=== PATIENT | male | born 1945 | race Caucasian/White ===

== ENCOUNTER 2021-11-27 12:30 | Outpatient (RCR) | payer MEDICARE, SELFPAY ==
--- NOTE | 2021-09-05 16:33 | PTOPEVAL ---
Thank you for referring Jordan Diaz to [facility].? The patient is scheduled to be seen for therapy? 2 x/week for 5 weeks. Please review, sign, date and return this plan of care NINA. I agree with and certify that the following plan of care is medically necessary. Referring Physician Date Attending Provider: Benigno Jay MD Diagnosis CVA Onset 4 yrs Additional Evaluation Detail TRISL 3 wk, [place] [facility]: 3 wk, OP therapy at [place] x 2 months. He receives botox injections for his left shoulder. HEP: walking, shoulder exercises andrea with 7# on right core stability/LE: clamshell, bridging, marching, leg lifts, sit<>Stand, ankle exercises, neck stretching Subjective Information STates he walking speed and Query Text:As Reported By Patient/ endurance increased until Family recently he has noticed a decline. States he is not able to walk as far and is walking slower. He had a fall 8 months ago. Increased limitations with sit <>stand from all surfaces with decreased control. Denies any problems with ramp. He has not used the steps at home in the past 4 yrs. He is able to perform steps in the community if the steps are wide and have a rail. Prior Level of Function Activity Level (Last 3 Months) Activity of Daily Living Ability Needs Some Help Indoor/Home Mobility Independent Stairs Ability Needs Some Help Cooking No Cleaning No Laundry No Shopping No Driving No Home Setting Home Type House Environmental Barriers Ramp Living Situation With Spouse Support Available Local Family Support Mobility Assistive Devices (Used Last 3 Cane Months) Comments Additional Prior Level of Function left wrist brace Comments has an AFO, but does not wear Pain Assessment Left Arm(s) Reported Pain Level 2 Lowest Pain Intensity 1 Greatest Pain Intensity 2 Pain Score Pain Score 2: Self
--- NOTE | 2021-09-11 12:55 | PCPTNOTE ---
Patient called & cancelled scheduled appointment this date due to icy weather.
--- NOTE | 2021-09-11 12:57 | PCPTNOTE ---
Patient called & cancelled scheduled appointment this date due to icy weather.
--- NOTE | 2021-10-02 15:28 | PTOPEVAL ---
Physical Therapy Progress Note Thank you for referring Jordan Diaz to [facility].? See update below for noted progress and recommendations for continued therapy. The patient is scheduled to be seen for therapy? 2x/week for 5 weeks. Please review, sign, date and return this plan of care NINA. I agree with and certify that the following plan of care is medically necessary. Referring Physician Date Attending Provider: Benigno Jay Referring Provider: Diagnosis CVA Onset 4 yrs Additional Evaluation Detail TRISL 3 wk, [place] [facility]: 3 wk , OP therapy at [place] x 2 months. He receives botox injections for his left shoulder. HEP: walking, shoulder exercises andrea with 7# on right core stability/LE: clamshell, bridging, marching, leg lifts, sit<>Stand, ankle exercises, neck stretching Subjective Information Reports he is able to clear Query Text:As Reported By Patient/ his left foot better with his Family walking. Feels the muscles are getting better slowly. He is not preforming prolonged walking and does not feel he is walking faster. He has had the chance to walk outside a few time. He is getting up from his chair or project every 30 min except with playing bridge. c/o right hip pain, but it does not interfer with his activities. Pain Assessment Timing of Pain Assessment Timing of Pain Assessment Re-assessment Pain Scale Pain Scale Used Numeric (1 - 10) Self Report Pain Assessment Left Arm(s) Reported Pain Level 0 Pain Score Pain Score 0: Self Report Lower Extremity Range of Motion Hip Range of Motion Left Hip Flexion Range of Motion - Passive 100 Hip Extension Range of Motion - Passive -20 Hip Abduction Range of Motion - Passive 20 Hip Medial Rotation - Passive 15 Lower Extremity Muscle Strength Testing General Lower Extremity Strength Gross Lower Extremity Strength right knee/ankle 5/5 right hip flex: 5/5, Hip Strength Left Hip Flexion Strength 4- Good - Hip Extension Strength 3 Fair Hip Abduction Strength 2+ Poor + Hip Adduction Strength 2+ Poor + Hip Strength Comments 75% of bridging motion Knee Strength Left
--- NOTE | 2021-11-06 15:19 | PTOPEVAL ---
Physical Therapy Progress Note Thank you for referring Jordan Diaz to [facility].? As a result of skilled services, he demonstrates improved functional mobility, improved balance and improved LE strength. He is progressing towards his therapy goals. The patient is scheduled to be seen for therapy?2 x/week for 3 weeks with no therapy planned for next week due to lack of transportation. Please review, sign, date and return this plan of care NINA. I agree with and certify that the following plan of care is medically necessary. Referring Physician Date Attending Provider: Benigno Jay MD Diagnosis CVA Onset 4 yrs Additional Evaluation Detail TRISL 3 wk, [place] [facility]: 3 wk , OP therapy at [place] x 2 months. He receives Botox injections for his left shoulder. HEP: walking, shoulder exercises andrea with 7# on right core stability/LE: clamshell, bridging, marching, leg lifts, sit<>Stand, ankle exercises, neck stretching Subjective Information He is getting out of his chair Query Text:As Reported By Patient/ every 30 min to walk and Family stand. Reports cont to have difficulty clearing his left foot at all time with his walking. Feels the muscles are getting better slowly. He is walking longer distance, but not as far as last summer. He c/o left thigh muscle soreness. Pain Assessment Self Report Pain Assessment Left Arm(s) Reported Pain Level 0 Lower Extremity Range of Motion Hip Range of Motion Left Hip Extension Range of Motion - Passive -15 Hip Abduction Range of Motion - Passive 20 Hip Medial Rotation - Passive 10 Lower Extremity Muscle Strength Testing Hip Strength Left Hip Flexion Strength 4 Good Hip Extension Strength 3+ Fair + Hip Abduction Strength 2+ Poor + Hip Adduction Strength 2+ Poor + Hip Strength Comments 100% of bridging motion Knee Strength Left Knee Flexion Strength 4+ Good + Knee Extension Strength 4+ Good + Knee Strength Comments hamstring tested seated Ankle Strength Left Ankle Dorsiflexion Strength 4+ Good + Ankle Eversion Strength 4+ Good + Ankle Inversion Strength 5 Normal Balance Assessment CERVANTES Balance Evaluation Total Score (40/56 points) Timed Up and Go Test (TUG) (Seconds) 16 Assistive Devices Cane, Straight 5 Time Sit to Stand
== END 2021-12-01 11:49 | disposition home or self-care (01) ==
LOC: ANHPT 12:30
DX: I69.359 Hemiplegia and hemiparesis following cerebral infarction affecting unspecified side (principal)
CPT/HCPCS: 97110; 97112; 97116; 97140; 97162; 97530

== ENCOUNTER 2021-12-05 12:30 | Outpatient (RCR) | payer MEDICARE, SELFPAY ==
--- NOTE | 2021-12-01 17:38 | PCPTNOTE ---
The treatment documented on this account is a continuation of the treatment documented on visit number 22 from [id number]. Please see documentation on both accounts to view progress. The Plan of Care has been transitioned and updated within the new V#. I have addressed and agree with the discipline specific Problems, Interventions, and Goals for the current certification period. Completed interventions, outcomes, and problems have been marked as Inactive to facilitate the copying of the Care plan routine for recurring accounts.
--- NOTE | 2021-12-02 11:31 | PCPTNOTE ---
Patient called & cancelled scheduled appointment this date due to back pain today.
--- NOTE | 2021-12-05 14:48 | PTOPEVAL ---
Physical Therapy Discharge Summary Thank you for referring Jordan Diaz to [facility].? Pt referred to therapy due to chronic impairments from CVA 4 yrs ago. He had previous bouts of therapy in acute rehab, SNF and OP therapy. He has attended 22 therapy visits from 09/05/21 to 12/05/21 to address his noted limitations. As result of skilled therapy services he demonstrates improved functional mobility, improved WB on left LE, decreased fall risk with improved Monroe score, improved endurance with ambulation. Also noted to have improved left hip flex/ext, knee flex/ext strength. Monroe balance test: 40 last update to TU sec last update and 17 sec currently with = LE WB 2 min walk test: 223 ft with cane last update, improve to 240 ft with cane 5 times sit<>Stand: 21 sec last update and 20sec with 100% WB on left at update As a result of skilled therapy services Jordan has met or partially met 90 % of his therapy goals. He demonstrates indep and compliance with his HEP and walking program. He has reached maximal potential with skilled therapy services at this time. Will DC skilled PT services at this time. Please review, sign, date and return this discharge summary NINA. Referring Physician Date Attending Provider: Benigno Jay MD Diagnosis CVA Onset 4 yrs Additional Evaluation Detail TRISL 3 wk, [place] [facility]: 3 wk, OP therapy at [place] x 2 months. He receives Botox injections for his left shoulder. HEP: walking, shoulder exercises andrea with 7# on right core stability/LE: clamshell, bridging, marching, leg lifts, sit<>Stand, ankle exercises, neck stretching Subjective Information He is walking more at home Query Text:As Reported By Patient/ every 30 min. He is able to Family walk his .6 mile walk with increased rudy. Reports improved ability to clearing his left foot with his walking. He does feel his step length need to be address still. He does feel his leg muscles are getting stronger. Pain Assessment Bilateral Lower Back Reported Pain Level 1 Lower Extremity Muscle Strength Testing Gross Lower Extremity Strength right knee/ankle 5/5 right hip flex: 5/5, Hip Strength Left Hip Flexion Strength 4+ Good + Hip Extension Strength 4- Good - Hip Abduction Strength 3 Fair Hip Strength Comments full bridge with moderate resistance Knee Strength Left Knee Flexion Strength 3+ Fair + Knee Extension Strength 4+ Good + Knee Strength Comments hams
== END 2021-12-08 10:45 | disposition home or self-care (01) ==
LOC: ANHPT 12:30
DX: I69.359 Hemiplegia and hemiparesis following cerebral infarction affecting unspecified side (principal)
CPT/HCPCS: 99199; 97110; 97530

== ENCOUNTER 2022-11-14 14:58 | Emergency (ER) | payer MEDICARE, SELFPAY ==
--- NOTE | ~2022-11-14 | XR_ITS ---
EXAMINATION: XR chest 2V Exam Date/Time: 11/14/2022 15:30 CDT HISTORY: cough congestion s/p inhaling peanut dust non smoker Comparison: 01/16/2018. RESULT: Lines, tubes, and devices: Right shoulder arthroplasty. Lungs and pleura: Scattered peripheral reticular opacities. Senescent changes. Scattered pulmonary g ranulomas. Cardiomediastinal silhouette: Stable. Other: No acute osseous or upper abdominal finding. IMPRESSION: Mild interstitial edema. Reviewed, dictated and finalized at location K. IMPRESSION: Mild interstitial edema.
[2022-11-14 15:09] VITALS: BP 112/82; PULSE 90; RESP 16; TEMP 37.2; O2SAT 95
--- NOTE | 2022-11-14 15:18 | ED.URI ---
HPI - URI/Sore Throat General Chief Complaint: Upper Respiratory Infection Stated Complaint: cough Time Seen by Provider: 11/14/22 15:18 Source: patient Mode of arrival: ambulatory Limitations: no limitations History of Present Illness HPI Narrative: Patient is a 77-year-old male who presents with congestion and cough after inhaling peanut dust 5 days ago. States he has been using Mucinex to help with his coughing, productive cough of green-yellow sputum. Reports wheezing mostly at night. Has not used anything else other than Mucinex. Denies any fever, chills, sore throat, ear pain, nausea, vomiting, diarrhea. Only reports shortness of breath with coughing fits. Reports concern for aspiration pneumonia Related Data Home Medications Medication Instructions Recorded Confirmed albuterol sulfate 90 mcg/actuation inhalation 11/14/22 aerosol inhaler aripiprazole 2 mg tablet mg 11/14/22 atorvastatin 10 mg tablet mg 11/14/22 bupropion HCl 150 mg 24 hr tablet, mg PO 11/14/22 extended release bupropion HCl 300 mg 24 hr tablet, mg PO 11/14/22 extended release ergocalciferol (vitamin D2) 1,250 11/14/22 mcg (50,000 unit) capsule levothyroxine 100 mcg tablet mcg 11/14/22 mirtazapine 45 mg tablet mg 11/14/22 prednisolone acetate 1 % eye drp 11/14/22 drops,suspension tamsulosin 0.4 mg capsule mg PO 11/14/22 Allergies Allergy/AdvReac Type Severity Reaction Status Date / Time No Known Allergies Allergy Mild Unverified 11/14/22 15:19 Review of Systems Review of Systems: All systems reviewed & are unremarkable except as noted in HPI and below Constitutional: Constitutional: Denies body ache(s), Denies fever(s), Denies headache(s), Denies malaise and Denies weakness Eyes: Eyes: Denies loss of vision ENT: Denies otalgia, Denies headache(s), Reports nasal congestion, Denies sinus pain and Denies sore throat Cardiovascular: Cardiovascular: Denies chest pain, Denies irregular heart rhythm and Denies dyspnea Respiratory: Respiratory: Reports cough and Denies dyspnea Gastrointestinal: Gastrointestinal: Denies abdominal pain, Denies melena, Denies hematochezia, Denies diarrhea, Denies nausea and Denies vomiting Musculoskeletal: Musculoskeletal: Denies back pain, Denies myalgias and Denies arthralgias Integumentary/Breasts: Skin/Breast: Denies pruritus and Denies rash Neurologic: Denies headache(s), Denies loss of vision and Denies weakness Psychiatric: Psychiatric: Reports no additional psychiatric complaints PMFSH Comments At time of signature, agree with nursing past medical, surgical, social and family history. There is no relevant family history pertinent to the presenting complaint. Exam Const: General: cooperative, healthy appearing, comfortable, no acute distress and well nourished Nutritional Appearance: well nourished Orientation/consciousness: patient oriented x3 Limitations: no limitations HENMT: Head: normal to inspection, normocephalic and atraumatic Ears: hearing grossly normal bilaterally, external ears normal and TM's normal bilaterally Face/Nose/Sinus: Normal external nose present, Abnormal mucous membranes and turbinates present erythematous bilateral, normal facial exam, sinuses nontender and face symmetric Face and sinus: normal facial exam, sinuses nontender and face symmetric Mouth: Yes Normal oral and palatal mucosa present, Yes lip normal and Yes moist mucous membranes Teeth and gingiva: dentition normal Throat: posterior oropharynx normal, tonsils normal and uvula midline Eyes: General: appearance normal, both eyes and all related structures Alignment and Position: alignment normal and position normal Periorbital: periorbital findings normal Eyelids: eyelids normal Pupils: Equal, round and reactive pupils present Neck: Neck: normal visual inspection, full ROM and supple Chest: Chest palpation & inspection: normal inspection of the chest and normal palpation of entire ch
== END 2022-11-14 16:20 | disposition home or self-care (01) ==
PROVIDERS: Emergency Provider Nurse Practitioner Family
DX: J84.9 Interstitial pulmonary disease, unspecified (principal); J32.9 Chronic sinusitis, unspecified; J40 Bronchitis, not specified as acute or chronic; E78.00 Pure hypercholesterolemia, unspecified; E03.9 Hypothyroidism, unspecified; Z94.7 Corneal transplant status
CPT/HCPCS: 71046; 99213; G0463

== ENCOUNTER 2023-01-24 15:43 | Emergency (ER) | payer MEDICARE, SELFPAY ==
--- NOTE | ~2023-01-24 | XR_ITS ---
EXAMINATION: XR chest 2V DATE: 01/24/2023 16:18 INDICATION: Cough and fever TECHNIQUE: frontal view of the chest was obtained. COMPARISON: Chest radiograph dated 11/15/2019 FINDINGS: Decreased lung volumes. New patchy perihilar airspace opacity in the right mid lung zone. Unchanged m ild bibasilar opacities. No pleural effusion or pneumothorax. Heart size is normal. Mild S-shaped cur vature of the thoracic and upper lumbar spine with moderate spondylosis. Right shoulder arthroplasty. IMPRESSION: 1. Small lung volumes with new perihilar opacity in the right midlung zone which could represent atel ectasis or pneumonia. Reviewed, dictated and finalized at location A. IMPRESSION: 1. Small lung volumes with new perihilar opacity in the right midlung zone whic h could represent atelectasis or pneumonia.
[2023-01-24 15:57] VITALS: BP 133/66; PULSE 108; RESP 16; TEMP 38.6; O2SAT 95
--- NOTE | 2023-01-24 16:05 | ED.URI ---
HPI - URI/Sore Throat General Chief Complaint: Upper Respiratory Infection Stated Complaint: cough Time Seen by Provider: 01/24/23 16:06 Source: patient Mode of arrival: ambulatory Limitations: no limitations History of Present Illness HPI Narrative: 77-year-old male presents with complaint of cough, chest congestion, headache starting this morning. Patient states that his made him come due to cough. Patient was not aware that he had a fever until coming to [facility]. He denies chest pain and shortness of breath. Also reports mild sore throat. Patient requesting COVID testing due to upcoming trip to [place]. All systems reviewed and negative except as noted above. Related Data Home Medications Medication Instructions Recorded Confirmed aripiprazole 2 mg tablet 2 mg PO DAILY 11/14/22 01/24/23 atorvastatin 10 mg tablet 10 mg PO DAILY 11/14/22 01/24/23 bupropion HCl 150 mg 24 hr tablet, 150 mg PO DAILY 11/14/22 01/24/23 extended release bupropion HCl 300 mg 24 hr tablet, 300 mg PO DAILY 11/14/22 01/24/23 extended release ergocalciferol (vitamin D2) 1,250 1,250 mcg PO DAILY 11/14/22 01/24/23 mcg (50,000 unit) capsule levothyroxine 100 mcg tablet 100 mcg PO DAILY 11/14/22 01/24/23 mirtazapine 45 mg tablet 45 mg PO DAILY 11/14/22 01/24/23 tamsulosin 0.4 mg capsule 0.4 mg PO DAILY 11/14/22 01/24/23 Allergies Allergy/AdvReac Type Severity Reaction Status Date / Time No Known Allergies Allergy Mild Verified 01/24/23 15:53 Review of Systems Review of Systems: CONSTITUTIONAL: Denies fever, chills, or sweats. Reports fatigue. EYES: Denies visual changes, redness, or discharge. ENT: Denies rhinorrhea, congestion . Reports sore throat. Denies otalgia. CARDIOVASCULAR: Denies chest pain, palpitations, or edema. RESPIRATORY: reports cough, chest congestion. Denies dyspnea. GASTROINTESTINAL: Denies abdominal pain, nausea, vomiting, or diarrhea. GENITOURINARY: Denies dysuria or hematuria. SKIN: Denies rash or itching. MUSCULOSKELETAL: Denies back pain, joint pain, or myalgia. NEUROLOGIC: Denies headache, numbness, or weakness. PSYCHIATRIC: Denies anxiety or depression. All other systems reviewed are negative, except as documented in HPI. PMFSH Comments At time of signature, agree with nursing past medical, surgical, social and family history. There is no relevant family history pertinent to the presenting complaint. Exam Narrative: GENERAL: This is a well-nourished, well-developed patient, in no apparent distress. HEAD: normocephalic, atraumatic. EYES: PERRL. Sclera clear/white. Vision is grossly intact. EARS: External ears normal, auditory canals clear and without drainage, TMs normal without perforation. Hearing grossly intact. NOSE: External nose normal with no obvious nasal discharge, nares without redness, no rhinorrhea. THROAT: Mucous membranes moist, posterior pharynx clear. NECK: Neck supple, non-tender without lymphadenopathy, masses or thyromegaly. CARDIOVASCULAR: Regular rate and rhythm without murmurs, gallops, or rubs. RESPIRATORY: Clear to auscultation. Breath sounds equal bilaterally. No wheezes, rales, or rhonchi. SKIN: warm, Dry, intact with no suspicious lesions or rash, good texture and turgor. NEURO: awake, alert, and oriented to person, place and time. There were no obvious focal neurologic abnormalities. EXTREMITIES: No joint tenderness, effusion, or edema noted. Course Course Level of Care: Express Care Visit Vital Signs Vital signs: Vital Signs Temperature 38.6 C H 01/24/23 15:57 Pulse Rate 108 H 01/24/23 15:57 Respiratory Rate 16 01/24/23 15:57 Blood Pressure 133/66 01/24/23 15:57 Pulse Oximetry 01/24/23 15:57 Oxygen Delivery Room Air 01/24/23 15:57 Temperature 38.6 C H 01/24/23 15:57 Pulse Rate 108 H 01/24/23 15:57 Respiratory Rate 16 01/24/23 15:57 Blood Pressure 133/66 01/24/23 15:57 Pulse Oximetry 01/24/23 15:5
[2023-01-24] MEDS: ACETAMINOPHEN 325 MG TABLET 650 MG PO (16:16)
== END 2023-01-24 17:13 | disposition home or self-care (01) ==
PROVIDERS: Emergency Provider Nurse Practitioner Family
DX: U07.1 COVID-19 (principal); E78.00 Pure hypercholesterolemia, unspecified; E03.9 Hypothyroidism, unspecified; Z94.7 Corneal transplant status
CPT/HCPCS: 71046; 87426; 99213; A9270; C9803; G0463

== ENCOUNTER 2024-02-22 08:30 | Outpatient (RCR) | payer MEDICARE, SELFPAY ==
--- NOTE | 2023-11-29 16:06 | OPREHPOC ---
Outpatient Therapy Plan of Care This is a Multidisciplinary Plan of Care that may contain components documented by all disciplines (PT, OT, and ST.) PT Problem 1 PT Problem #1 Knowledge Deficit PT Goal 1 Goal *indep with HEP Target Visit 8 PT Problem 2 PT Problem #2 Pain PT Goal 1 Goal 1* pain rating L hip at worst of 3/10 2* pain rating R hip at worst of 2/10 3* LE functional scale self rating of 60% limitation in activity level Target Visit 8 PT Problem 3 PT Problem #3 Impaired Strength PT Goal 1 Goal improve strength of R and L LE to improve posture and mobility skills: 1* pt able to perform supine and side lying strengthening exercises x 20 reps with good control Target Visit 8 PT Problem 4 PT Problem #4 Impaired Flexibility PT Goal 1 Goal increase flexibility of R and L hip, to improve positioning and alignment hamstring length with supine SLR 1* R 45' 2* L 45' piriformis length with supine hip/knee flexion >90', to mid line of body 3* R 4* L
--- NOTE | 2023-11-29 16:06 | PTOPEVAL1 ---
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; no falls in the past 6 months, but had loss of balance with sit to stand and fell back into the chair; Activity: use cane for ambulation since CVA; problems with standing still- muscles freeze; does go out into [employer] 3x/wk and occasionally out to eat; for fitness-- walking outside, yellow theraband exercises in sitting; Goal: not have pain in hips; Reported Pain Level Pain Score Self Report Additional Pain Score Comments pain range in the past week: L hip 1-6/10; irritation of hip, twinge of pain; R hip: 0-3/10; also have pain in R knee /--twisted it when got pain in L hip; debilitating hip pain, cannot walk, movements restricted; increase pain: walking/standing tolerance 25 minutes; decrease pain: sit, rest, ibuprofen, not using heat/ice- instruct on use of heat/ice PRN; sleep in recliner and is OK; Assessment PT Clinical Summary Eric has the diagnosis of R and L hip pain, bursitis. His medical history includes CVA with L residual weakness. His was present during the evaluation and supportive to pt. LE functional scale, self rating of 73% limitation in activity level. With the evaluation, he has postural changes with tone on L UE and LE due to previous CVA; weakness of both hips with tightness of both hamstrings, piriformis and knee extension; pain L LE more than R, with tenderness over L ITB and lateral hip. Skilled PT services are ind
--- NOTE | 2023-12-27 18:29 | PTOPEVAL1 ---
Assessment and note entered by Zoe Regalado, PT Re-eval Information Assessment Status Progress Diagnosis R and L hip pain, bursitis Onset Aug 2023 Subjective Information Pt reports that pain has significantly reduced and noticed improved mobility in B hips. States continued difficulty with transitioning positions and the twinge pain still occurs with moving LLE to perform an SLR. Reported Pain Level Pain Score 1,2: Self Report Assessment PT Clinical Summary Pt reports reduction in pain at this time, demos improved joint mobility and BLE strength. However, pt continue to demo tightness and discomfort impacting position transitions and gait. Pt will benefit from continued skilled therapy services to address remaining pain, postural and balance deficits and reduce risk for falls. Plan of Care Interventions Electrical Stimulation,Gait Training,Hot Pack/Cold Pack,Manual Therapy,Neuro Re-education,Patient/ Caregiver Educati,Therapeutic Activities, Therapeutic Exercise,Ultrasound,Other Other Interventions IASTM, taping PT Services Indicated Yes Treatment Frequency and 2x/wk x 8 visits Duration These treatments will address the objective and functional deficits as defined above. The patient will be advanced safely and appropriately in order for the patient to progress towards his/her prior level of function. Additional exercises will be introduced and as well as a comprehensive home exercise program upon discharge, if needed, ?to ensure carryover of functional gains achieved in the clinic. This treatment plan has been reviewed and agreement upon by the patient.
--- NOTE | 2024-01-25 09:49 | PTOPPROG ---
Assessment and note entered by Supriya Love, PT Progress Report Assessment Status Progress Diagnosis R and L hip pain, bursitis Onset Aug 2023 Subjective Information seeing some progress with less pain in L hip but R knee hurting more; R knee gives him the most pain, when walking put too much strain on it; saw few weeks ago, wants me to continue therapy and gave me another order; doing the leg exercises at home, 15-25 reps, but have not been walking as much due to pain. PAIN: 0/10 R hip, 2/10 over L anterior hip and buttock/piriformis pain in R knee 3/10-- limits his walking; Assessment PT Clinical Summary Eric has received a total of 16 PT sessions. Compared to the last progress report: reported pain of R and L hip have decreased but R Knee pain increased; increase strength of R and L LE with exercises; PASS balance assessment from to 2 minute walking test distance of 185' with cane; continues to have flexion tone in L LE with postural abnormalities with gait; education for HEP and position of L LE. The goals were partially met. Continue PT treatment to further increase LE strength, gait and balance skills. Plan of Care Interventions Electrical Stimulation,Gait Training,Hot Pack/Cold Pack,Manual Therapy,Neuro Re-education,Patient/ Caregiver Education,Therapeutic Activities, Therapeutic Exercise,Ultrasound,Other Other Interventions IASTM, taping PT Services Indicated Yes Treatment Frequency and 1-2x/wk for 8 visits Duration These treatments will address the objective and functional deficits as defined above. The patient will be advanced safely and appropriately in order for the patient to progress towards his/her prior level of function. Additional exercises will be introduced and as well as a comprehensive home exercise program upon discharge, if needed, ?to ensure carryover of functional gains achieved in the clinic. This treatment plan has been reviewed and agreement upon by the patient.
--- NOTE | 2024-01-25 09:50 | OPREHPOC ---
Outpatient Therapy Plan of Care This is a Multidisciplinary Plan of Care that may contain components documented by all disciplines (PT, OT, and ST.) PT Problem 1 PT Problem #1 Knowledge Deficit PT Goal 1 Goal *indep with HEP Target Visit 8 Progress Partially Met PT Goal 2 Goal New Goal: indep with postural correction and weight shifting techniques Progress Partially Met Comment 01-25-24 progress goal partially met continue towards goal TARGET 24 total visits PT Problem 2 PT Problem #2 Pain PT Goal 1 Goal 1* pain rating L hip at worst of 3/10 2* pain rating R hip at worst of 2/10 3* LE functional scale self rating of 60% limitation in activity level Target Visit 8 Progress Met PT Goal 2 Goal 01-25-24 progress NEW goal 1* pain of R knee 2/10 at worst TARGET 24 total visits Target Visit 24 PT Problem 3 PT Problem #3 Impaired Strength PT Goal 1 Goal improve strength of R and L LE to improve posture and mobility skills: 1* pt able to perform supine and side lying strengthening exercises x 20 reps with good control Target Visit 8 Progress Partially Met Comment noted limitation to LLE mobility. PT Goal 2 Goal 01-25-24 progress goal met NEW GOAL: 1* standing L hip flexion to 90' x 10 reps with use of cane Target Visit 24 PT Problem 4 PT Problem #4 Impaired Flexibility PT Goal 1 Goal increase flexibility of R and L hip, to improve
--- NOTE | 2024-02-24 11:55 | PCPTNOTE ---
This treatment is being continued on visit number [id number]. Please see documentation on both accounts to view progress. Completed interventions, outcomes, and problems have been marked as Inactive to facilitate the copying of the Care plan routine for recurring accounts.
== END 2024-02-23 11:34 | disposition home or self-care (01) ==
LOC: ANHPT 08:30
PROVIDERS: Visit Provider Orthopaedic Surgery
DX: M70.71 Other bursitis of hip, right hip (principal); M70.72 Other bursitis of hip, left hip; R29.898 Other symptoms and signs involving the musculoskeletal system
CPT/HCPCS: 97035; 97110; 97112; 97140; 97162; 97530

== ENCOUNTER 2024-06-08 09:00 | Outpatient (RCR) | payer MEDICARE, SELFPAY ==
--- NOTE | 2024-02-24 11:56 | PCPTNOTE ---
This treatment is being continued from visit number [id number]. Please see documentation on both accounts to view progress. Completed interventions, outcomes, and problems have been marked as Inactive to facilitate the copying of the Care plan routine for recurring accounts.
--- NOTE | 2024-03-21 13:26 | OPREHPOC ---
Outpatient Therapy Plan of Care This is a Multidisciplinary Plan of Care that may contain components documented by all disciplines (PT, OT, and ST.) PT Problem 1 PT Problem #1 Knowledge Deficit PT Goal 1 Goal / Goal Update *indep with HEP Target Visit 8 Progress Partially Met PT Goal 2 Goal / Goal Update New Goal: indep with postural correction and weight shifting techniques 03-21-24 progress goal not met continue towards goals Target Visit 32 Progress Partially Met PT Problem 2 PT Problem #2 Pain PT Goal 1 Goal / Goal Update 1* pain rating L hip at worst of 3/10 2* pain rating R hip at worst of 2/10 3* LE functional scale self rating of 60% limitation in activity level Target Visit 8 Progress Met PT Goal 2 Goal / Goal Update 01-25-24 progress NEW goal 1* pain of R knee 2/10 at worst TARGET 24 total visits 03-21-24 progress goal met; NEW GOAL: 1* pain L hip 2/10 at worst Target Visit 32 PT Problem 3 PT Problem #3 Impaired Strength PT Goal 1 Goal / Goal Update improve strength of R and L LE to improve posture and mobility skills: 1* pt able to perform supine and side lying strengthening exercises x 20 reps with good control Target Visit 8 Progress Partially Met PT Goal 2 Goal / Goal Update 01-25-24 progress goal met NEW GOAL: 1* standing L hip flexion to 90' x 10 reps with use of cane 03-21-24 progress goal not met continue towards Target Visit 32 PT Problem 4 PT Problem #4 Impaired Flexibility PT Goal 1 Goal / Goal Update increase flexibility of R and L hip, to improve positioning and alignment hamstring length with supine SLR 1* R 45' 2* L 45' piriformis length with supine hip/knee flexion >90', to mid line of body 3* R 4* L Target Visit 8 Progress Partially Met PT Goal 2 Goal / Goal Update 01-25-24 progress goals not met continue towards 03-21-24 progress goal 3,4 met. continue towards 1 & 2 Target Visit 24 PT Problem 5 PT Problem #5 Impaired Balance PT Goal 1 Goal / Goal Update 1. Pt will demo PASS score of 31/36 2. Pt will improve 5xSTS time to 15 seconds or less to reduce risk for falls Target Visit 8 Progress Not Met PT Goal 2 Goal / Goal Update 03-21-24 progress goal 1 met NEW GOAL: 1* 5 reps sit/stand 18 seconds 2* sit/stand without use of UE Target Visit 32
--- NOTE | 2024-03-21 13:26 | PTOPPROG ---
Assessment and note entered by Supriya Love, PT Progress Report Assessment Status Progress Diagnosis R and L hip pain, bursitis Onset Aug 2023 Subjective Information went on his vacation, but it was ended early due to his son's ; he fell 3 days ago-sat on the edge of the bed to pet his kitten and bed collapsed, landed on L hip; yesterday had loss of balance when first standing up and started to walk, lost balance forward, there and helped him upright and back into the chair; have been doing his leg exercises; is walking about 1/2 mile, for fitness, then back stiff and have to stop; Assessment PT Clinical Summary Jordan has received a total of 24 PT sessions. He was last here 4 weeks ago, due to vacation and of his son. He returns today for reevaluation. Compared to the last reevaluation: decreased pain in R hip and knee, with increase L hip pain due to a fall few days ago; has a fear of falling again; functional activity with LE Functional scale rating from 60 to 59% limitation in activity level; 5 reps sit/stand time from 22 to 24 seconds; 2 minute walking test distance from 185' to 175' with cane and gait same pattern; continues to have tightness over R and L hamstring and piriformis muscles; strength of L hip in standing is the same with standing hip flexion. The goals were partially achieved. Continue PT treatment to further increase strength and mobility skills, to improve safety and decrease risk of falls, monitoring pain with activity. Plan of Care Interventions Gait Training,Manual Therapy,Neuro Re-education, Patient Education,Therapeutic Activities, Therapeutic Exercise Other Interventions IASTM PT Services Indicated Yes Treatment Frequency and 1-2x/wk for 8 visits Duration These treatments will address the objective and functional deficits as defined above. The patient will be advanced safely and appropriately in order for the patient to progress towards his/her prior level of function. Additional exercises will be introduced and as well as a comprehensive home exercise program upon discharge, if needed, ?to ensure carryover of functional gains achieved in the clinic. This treatment plan has been reviewed and agreement upon by the patient.
--- NOTE | 2024-06-08 10:01 | PTOPDC ---
Assessment and note entered by Bryan Chacon, PT Evaluation Information Assessment Status Discharge Diagnosis R and L hip pain, bursitis Onset Aug 2023 Subjective Information Patient reports improvement in pain and mobility in hips. Still feels that he has some weakness and wants exercises to continue to work on them to help at home. Wants to emphasize strength and continued mobility and will contact after discharge should he have any issues. Reported Pain Level Pain Score 0: Self Report Assessment PT Clinical Summary Patient has made subjective improvement indicated by reduced pain and improved mobility. Continues to show some weakness in hips but this was emphasized as part of HEP moving forward with independence. I spoke with him about working towards independent exercise but being in contact with us should he need to return at a later date. Plan of Care PT Services Indicated D/C to HEP
== END 2024-06-08 14:54 | disposition home or self-care (01) ==
LOC: ANHPT 09:00
PROVIDERS: Visit Provider Orthopaedic Surgery
DX: M70.71 Other bursitis of hip, right hip (principal); M70.72 Other bursitis of hip, left hip; R29.898 Other symptoms and signs involving the musculoskeletal system
CPT/HCPCS: 97110; 97140; 97530

== ENCOUNTER 2025-02-14 11:24 | Observation (INO) | payer MEDICARE, SELFPAY ==
--- NOTE | ~2025-02-14 | XR_ITS ---
EXAMINATION: XR chest 1V portable DATE: 02/14/2025 21:19 INDICATION: Right leg weakness TECHNIQUE: frontal view of the chest was obtained. COMPARISON: Chest radiograph dated 01/24/2023 FINDINGS: Decreased lung volumes. Mild streaky atelectasis in the right mid and left lower lung zones. No pulmo nary edema, pleural effusion or pneumothorax. The cardiomediastinal silhouette is normal. Right total shoulder arthroplasty. IMPRESSION: 1. Small lung volumes with mild linear discoid atelectasis in the right mid and left lower lung zones . Reviewed, dictated and finalized at location A. IMPRESSION: 1. Small lung volumes with mild linear discoid atelectasis in the right mid and left lower lung zones.
--- NOTE | ~2025-02-14 | MR_ITS ---
EXAM: MR brain/brain stem wo/w con - 02/15/2025 10:30 CDT HISTORY: 79 years old Male with transient right leg weakness TECHNIQUE: Multiplanar and multisequence MRI of the brain without and with contrast. COMPARISON: 09/10/2017 FINDINGS: BRAIN PARENCHYMA: No acute infarct or hemorrhage. No mass effect or herniation. Moderate white matter chronic small ve ssel ischemic changes.. No pathological enhancement on post-contrast images. Chronic infarct centered around the right basal ganglia and right frontal lobe causing mild extrinsic dilatation of the right lateral ventricle is again seen. Mild susceptibility artifact on gradient echo images in the area of chronic infarct, likely sequela of old hemorrhage. VENTRICLES / EXTRA-AXIAL SPACES: No hydrocephalus or extra-axial fluid collections. CALVARIUM AND SINUSES: No calvarial lesions are visualized. The visualized sinuses and mastoid air ce lls are clear. FLOW VOID: Intact. OTHER EXTRACRANIAL STRUCTURES: Visualized structures are normal. IMPRESSION: No evidence of acute ischemic infarct. Reviewed, dictated and finalized at location A.
--- NOTE | ~2025-02-14 | XR_ITS ---
EXAMINATION: XR hip BI 2V w AP pelvis DATE: 02/14/2025 19:58 INDICATION: Chronic bilateral hip pain post fall TECHNIQUE: Anteroposterior view of the pelvis and anteroposterior and frog-leg lateral views of the l eft hip and anteroposterior and frog-leg lateral views of the right hip and were obtained. COMPARISON: 11/08/2023 FINDINGS: Bone alignment is normal. No fracture. Osteoarthritis at the bilateral hips, mild on the left and mil d to moderate on the right. Safety pin external to the patient projects over the central pelvis along with a couple snaps also likely external to patient project over the greater trochanter right femur. . Soft tissues are otherwise unremarkable. IMPRESSION: 1. Mild left and mild to moderate right hip osteoarthritis. No acute osseous abnormality. Reviewed, dictated and finalized at location A. IMPRESSION: 1. Mild left and mild to moderate right hip osteoarthritis. No acute osseous ab normality.
--- NOTE | ~2025-02-14 | XR_ITS ---
EXAM/ PROCEDURE: XR shoulder RT min 2V, XR knee RT min 4V - 02/14/2025 14:20 CDT HISTORY: 79 years old Male with fall, R shoulder pain COMPARISON: None available FINDINGS/ IMPRESSION: Right shoulder: Right shoulder arthroplasty with intact hardware. No loosening. No fracture. Joint sp lb narrowing, subchondral sclerosis, subchondral cyst formation and osteophyte formation, compatible with moderate osteoarthritis. Right knee: There are no fractures or dislocations.Joint space narrowing, subchondral sclerosis, subchondral cyst formation and osteophyte formation, compatible with moderate osteoarthritis. Reviewed, dictated and finalized at location A.
--- NOTE | ~2025-02-14 | CT_ITS ---
EXAM: CT brain wo con - 02/14/2025 11:50 CDT History: 79 years old Male with fall COMPARISON: 09/10/17 PROCEDURE: CT of the head without contrast. Axial, sagittal and coronal reformatted planes were silvestre luated. Automatic exposure control was used for this study. FINDINGS: Evaluation is limited secondary to artifact caused by the patient's motion. BRAIN PARENCHYMA: No acute hemorrhage. No mass effect or herniation. Chronic infarct centered around the right basal ganglia and right frontal lobe causing mild ex vacuo dilatation of the right lateral ventricle. Mild chronic volume loss. Scattered hypodensities in subcortical and periventricular white matter, likely representing chronic microvascular ischemic changes in this age group. Atheroscleroti c calcification of the intracranial vessels is noted. VENTRICLES/ EXTRA-AXIAL SPACES: No hydrocephalus or extra-axial fluid collection. EXTRACRANIAL STRUCTURES: No calvarial fracture. IMPRESSION: 1. No evidence for acute intracranial hemorrhage or calvarial fracture. 2. Multiple chronic findings, as above. Reviewed, dictated and finalized at location A.
--- NOTE | ~2025-02-14 | CT_ITS ---
EXAMINATION: CT lumbar spine wo con DATE: 02/14/2025 19:53 INDICATION: Bilateral hip pain post fall TECHNIQUE: Computed tomography (CT) of the lumbar spine was performed without intravenous contrast. T he dose-length product was 1347.59 mGy-cm. COMPARISON: None FINDINGS: 18 degrees thoracolumbar dextroscoliosis. Sagittal images normal. Vertebral body heights are normal. No fracture. Moderate disc height loss at L1-L2 and mild disc height loss at remaining levels from T1 0-T11 through L5-S1. Disc bulges contributing to mild central canal stenosis at L2-L3 through L4-L5. Multilevel facet osteoarthritis, severe in the right at L4-L5, moderate on the left at L4-L5 and bila terally at L5-S1 and mild in the remainder of the more cephalad lumbar and lower thoracic spine. Mild to moderate bilateral sacroiliac osteoarthritis. The visceral organs in the visualized portion of th e abdomen and pelvis are unremarkable. The following disc levels are specifically discussed: IMPRESSION: 1. 18 degrees thoracolumbar with mild to moderate spondylosis. No acute osseous abnormality. Reviewed, dictated and finalized at location A.
--- NOTE | ~2025-02-14 | US_ITS ---
EXAM: US carotid duplex BI - 02/16/2025 9:00 CDT History: 79 years old Male with concern for TIA Technique: Real-time sonographic images of the bilateral carotid and vertebral arterial systems were obtained. Color Doppler sonography and spectral waveform analysis were performed. Comparison: None available. Findings: Right Velocities (cm/sec): Right Common carotid Peak systolic velocity: 79 Right internal carotid Peak systolic velocity: 136 End diastolic velocity: 7 Right ICA/CCA ratio: 1.7 Right External carotid Peak systolic velocity: 57 Right Vertebral: Antegrade flow Left Velocities (cm/sec): Left Common carotid Peak systolic velocity: 110 Left internal carotid Peak systolic velocity: 106 End diastolic velocity: 14 Left ICA/CCA ratio: 1 Left External carotid Peak systolic velocity: 103 Left Vertebral: Antegrade flow Impression: Slight increased velocity in the right ICA suggestive of 50-69% stenosis, however no athe rosclerotic plaque is seen Reviewed, dictated and finalized at location A. Impression: Slight increased velocity in the right ICA suggestive of 50-69% edna nosis, however no atherosclerotic plaque is seen
--- NOTE | ~2025-02-14 | CT_ITS ---
EXAMINATION: CT cervical spine wo con DATE: 02/14/2025 12:02 INDICATION: Neck pain after fall TECHNIQUE: Computed tomography (CT) of the cervical spine was performed without intravenous contrast. The dose-length product was 386 mGy-cm. Automated exposure control and iterative reconstruction technique were employed. COMPARISON: None FINDINGS: Mild levocurvature of the cervical spine. Odontoid process is normal. Craniovertebral junct ion is normal. There is multilevel uncinate and facet hypertrophy with facet degenerative changes mor e so on the left. There is carotid atherosclerosis. Lung apices are normal. No evidence for perched f acet. Craniovertebral junction is normal. No acute fracture or traumatic malalignment. No significant paraspinal soft tissue abnormality. IMPRESSION: 1. Severe cervical spondylosis. Reviewed, dictated and finalized at location A.
--- NOTE | ~2025-02-14 | CT_ITS ---
EXAMINATION: CTA BRAIN/CAROTID DATE: 02/14/2025 22:16 INDICATION: Right leg weakness and tingling TECHNIQUE: Computed tomographic angiography (CTA) of the head and neck was performed with 100 mL Omni paque-350 intravenous contrast. Multiplanar reconstructions and maximum intensity projection 3D-recon structions of the carotid arteries and of the intracranial arteries were created by the technologist on a separate workstation. Automated exposure control and iterative reconstruction technique were emp loyed.The dose-length product was 990.17 mGy-cm. COMPARISON: None. FINDINGS: Carotid arteries: The large portion of the aortic arch is normal in caliber with no dissection. Tortuous course of the great vessels arising from the arch. There is atherosclerotic plaque with 0% stenosis of the right an d left carotid bulbs relative to normal distal artery lumen diameter (NASCET criteria). The left vert ebral artery is dominant. Moderate cervical spondylosis. Cervical soft tissues are unremarkable. Mild decreased volume in the visualized right upper lung with dependent groundglass opacities likely rela antony to secondary atelectasis. Small calcified pleural plaque versus calcified granuloma along the pos terior right upper lobe. Intracranial arteries Left vertebral artery is dominant. Small amount of nonhemodynamically significant atherosclerotic ac que at the bilateral carotid siphons. There is no hemodynamically significant stenosis in the vertebr al, basilar and internal carotid arteries. Both A1 and P1 segments are patent. There is also a patent anterior to indicating artery. There are no aneurysms identified. Cerebral arterial arborization ap pears symmetric. Region of encephalomalacia in the right frontal lobe extending to the insula consist ent with sequela of old infarct. IMPRESSION: 1. Small amount of atherosclerotic plaque with 0% stenosis of the right and left carotid bulbs relati ve to normal distal artery lumen diameter (NASCET criteria). 2. No hemodynamic significant stenosis, thrombosis or aneurysm within the cerebral arteries. Reviewed, dictated and finalized at location A. IMPRESSION: 1. Small amount of atherosclerotic plaque with 0% stenosis of the right and lef t carotid bulbs relative to normal distal artery lumen diameter (NASCET criteri a). 2. No hemodynamic significant stenosis, thrombosis or aneurysm within the cereb ral arteries.
[2025-02-14 11:24] VITALS: BP 112/47; PULSE 70; RESP 16; TEMP 36.4; O2SAT 94
--- OUTSIDE RECORDS SUMMARY | 2025-02-14 11:29 | XMS_ITS | Clinical Summary ---
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
--- OUTSIDE RECORDS SUMMARY | 2025-02-14 11:29 | XMS_ITS | Encounter Summary ---
Author Organization [facility] Address [address] [facility] [place] [address] Care Team Providers Care Application Development Intern Name Role Phone Natanael Tai MD Primary Care Provider Gunnar Greenfield MD Unavailable Natanael Tai MD Unavailable [phone] Christoph Jaffe MD Unavailable Brando Hitchcock MD Unavailable Genaro Santiago MD Unavailable Dat Garcia MD Unavailable Randall Harrison MD Unavailable Ivan Zimmerman MD Unavailable [phone] Delmar Mayers MD Unavailable [phone] Louisa Fuller MD Unavailable [phone] Reason for Visit * Reason Onset Date Comments Weakness Extremity 02/14/2025 Fall 02/14/2025 Encounter Details Date Type Department Care Team (Late st Contact Info) Description 02/14/2025 Telephone [facility] Medicine [address] [facility] [address] [place] [phone] Natanael Tai MD [address] [place] [address] [place] [phone] Weakness Extremity; Fall Social History Tobacco Use Types Packs/Day Years Used Date Smoking Tobacco: Never Smokeless Tobacco: Never Alcohol Use Standard Drinks/Week Comments Yes 0 (1 standard drink = 0.6 oz pur e alcohol) 1-2 per month PHQ-2 Answer Date Recorded Patient Health Questionnaire-2 Score 0 12/31/2024 Sex and Gender Information Value Date Recorded Sex Assigned at Not on file Legal Sex Male 6:53 AM CONSTRUCTION RIGGER Gender Identity Not on file Sexual Orientation Not on file 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 Answer Date of Assessment Author No 09/14/2019 3:03 PM CONSTRUCTION RIGGER Andres, Salud Deleon RN * Is person blind or have serious difficulty seeing? Answer Date of Assessment Author No 09/14/2019 3:03 PM [facility] Andres, Salud Deleon RN * Does person have serious difficulty walking/climbing stairs? Answer Date of Assessment Author Yes 09/14/2019 3:03 PM [facility] Andres, Salud Deleon RN * Does person have difficulty dressing/bathing? Answer Date of Assessment Author Yes 09/14/2019 3:03 PM [facility] Andres, Salud Deleon RN * Does person have difficulty doing errands alone? Answer Date of Assessment Author Yes 09/14/2019 3:03 PM [facility] documented as of this encounter Mental Status * Does person have difficulty concentrating/remembering/making decisions? Answer Entry Date Author Yes 09/14/2019 3:03 PM [facility] AndresSalud RN documented in this encounter Miscellaneous Notes * Telephone Encounter - Libby Sanchez RN - 02/14/2025 10:30 AM CDT Advised Mildred of PCP's response She will take pt to ER NINA Sanchez RN * Telephone Encounter - Natanael Tai MD - 02/14/2025 9:45 AM CDT I do recommend ER as soon as possible. Natanael Tai MD 02/14/2025 9:46 AM * Telephone Encounter - Libby Sanchez RN - 02/14/2025 9:32 AM CDT Pt's spouse calling to report fall this AM 4th fall since July 2024 Pt has been experiencing right leg weakness intermittently the last 4-6 weeks - episodes of right leg weakness Right leg gave out on pt this morning, he fell and hit his head on the couch Mildred states he did not hit his head hard Pt did not lose consciousness Fire dept came to assist with getting pt up Mildred also noticed that his strength gripping with right hand may have been weaker Pt reports neck pain Denies YOU or vision changes With new onset of weakness to right side, advised to go to ED for immediate assessment and treatment She agrees, but is requesting PCP's advice, please advise Thank you Libby Sanchez RN documented in this encounter Plan of Treatment Upcoming Encounters Date Type Department Care Team (Late st Contact Info) Description 04/06/2025 2:00 PM CDT Office Visit [facility] - Internal Medicine [address] [place] [address] [place] [phone] Natanael Tai MD [address] [place] [address] [place] [phone] 05/08/2025 2:00 PM CDT Office Visit [facility] - Dermatology [address] [place] [address], [place] [address] Iavn Zimmerman MD [address] [place] [address] [place] [address] documented as of this encounter Goals Goal Patient Goal Type Associated Problems Recent Progress Patient-Stated? Author Blood Pressure < 140/90 Blood Pressure 120/72(2023 10:31 AM CONSTRUCTION RIGGER) No Kasandra An [facility] Lifestyle:Decrea se anxiety / depression / stress levels Lifestyle No Elsa Munoz MA documented as of this encounter Visit Diagnoses Not on filedocumented in this encounter Care Teams Application Development Intern Relationship Specialty Start Date End Date Natanael Tai MD [address] [facility] [address] [place] [phone] PCP - General Internal Medicine 11/11/11 Natanael Tai MD [address] [facility] [address] [place] [phone] PCP - Attributed-MSSP 12/30/16 Gunnar Greenfield MD [address] [place] [address] Psychiatry 07/05/14 Christoph Jaffe MD [address] [facility] [facility] [address] [place] [address] Ophthalmology 01/19/17 Brando Hitchcock MD [address] [facility] [address] [place] [address] Gastroenterology 02/25/18 Genaro Santiago MD [address] [facility] [address] [place] [phone] Pulmonary Disease 08/01/18 Dat Garcia MD [address] [facility] [address] [place] [address] Ophthalmology 10/10/20 Randall Harrison MD [address] [facility] [address] [place] [address] Dermatology 05/02/21 Ivan Zimmerman MD [address] [facility] [address] [place] [address] Dermatology 05/02/21 Delmar Mayers MD [address] [facility] [address] [place] [phone] Cardiology 07/02/22 Louisa Fuller MD [address] [facility] [address] DEPT [place] [address] Dermatology 01/04/23 documented as of this encounter
--- OUTSIDE RECORDS SUMMARY | 2025-02-14 11:29 | XMS_ITS | Encounter Summary ---
Author Organization [facility] Address [address] [facility] [place] [address] Care Team Providers Care Security Incident Response Specialist Name Role Phone Natanael Tai MD Primary Care Provider Gunnar Greenfield MD Unavailable [phone] Natanael Tai MD Unavailable Christoph Jaffe MD Unavailable Brando Hitchcock MD Unavailable Genaro Santiago MD Unavailable Dat Garcia MD Unavailable Randall Harrison MD Unavailable Ivan Zimmerman MD Unavailable [phone] Delmar Mayers MD Unavailable [phone] Louisa Fuller MD Unavailable [phone] Encounter Details Date Type Department Care Team (Late st Contact Info) Description 02/04/2025 Results Follow-Up [facility] - Internal Medicine [address] [facility] [address] [place] [phone] Natanael Tai MD [address] [place] [address] [place] [phone] Social History Tobacco Use Types Packs/Day Years Used Date Smoking Tobacco: Never Smokeless Tobacco: Never Alcohol Use Standard Drinks/Week Comments Yes 0 (1 standard drink = 0.6 oz pur e alcohol) 1-2 per month PHQ-2 Answer Date Recorded Patient Health Questionnaire-2 Score 0 12/31/2024 Sex and Gender Information Value Date Recorded Sex Assigned at Not on file Legal Sex Male 6:53 AM 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 Answer Date of Assessment Author No 09/14/2019 3:03 PM CUSTOM MARINE CANVAS FABRICATOR Andres, Salud Deleon RN * Is person blind or have serious difficulty seeing? Answer Date of Assessment Author No 09/14/2019 3:03 PM CUSTOM MARINE CANVAS FABRICATOR Andres, Salud Deleon RN * Does person have serious difficulty walking/climbing stairs? Answer Date of Assessment Author Yes 09/14/2019 3:03 PM CUSTOM MARINE CANVAS FABRICATOR Andres, Salud Deleon RN * Does person have difficulty dressing/bathing? Answer Date of Assessment Author Yes 09/14/2019 3:03 PM CUSTOM MARINE CANVAS FABRICATOR Andres, Salud Deleon RN * Does person have difficulty doing errands alone? Answer Date of Assessment Author Yes 09/14/2019 3:03 PM CUSTOM MARINE CANVAS FABRICATOR Andres, Salud Deleon RN documented as of this encounter Mental Status * Does person have difficulty concentrating/remembering/making decisions? Answer Entry Date Author Yes 09/14/2019 3:03 PM CUSTOM MARINE CANVAS FABRICATOR Andres, Salud Deleon RN documented in this encounter Miscellaneous Notes * Telephone Encounter - Starr Pierce LPN - 02/08/2025 9:06 AM CDT Aware of results and new dose levothyroxine to pharmacy. He will repeat TSH hopefully this week. Orders Placed This Encounter TSH Release to patient: Immediate levothyroxine (Synthroid) 112 MCG tablet Sig: Take 1 (one) tablet by mouth once daily Reasons: Underactive Thyroid Dispense: 90 tablet Refill: 1 * Telephone Encounter - Natanael Tai MD - 02/04/2025 9:23 PM CDT Please notify the patient his TSH which was previously a little too high was now a little too low. This means that the increased levothyroxine dose is now too high, after previously being too low. I think he will run out of the 125-mcg tablets soon. Advise him I ordered 112-mcg tablets, to take 1 daily each morning with water 30 minutes prior to any food in the morning or other morning medications. In 6-8 weeks, around March 17-March 31, he should do yet another blood test at [facility] to recheck the TSH. (If he has left over 125-mcg and 100-mcg tablets, he could alternate them with 125 on the odd days and 100 on the even days, until one runs out. Then he would go to 112-mcg every day.) Natanael Tai MD 02/04/2025 9:29 PM documented in this encounter Plan of Treatment Upcoming Encounters Date Type Department Care Team (Late st Contact Info) Description 04/06/2025 2:00 PM CDT Office Visit [facility] - Internal Medicine [address] [place] [phone] Natanael Tai MD [address] [place] [phone] 05/08/2025 2:00 PM CDT Office Visit [facility] - Dermatology [address] [place] [address], [place] [phone] Ivan Zimmerman MD [address] [place] [address] [address] [place] [address] documented as of this encounter Goals Goal Patient Goal Type Associated Problems Recent Progress Patient-Stated? Author Blood Pressure < 140/90 Blood Pressure 120/72(2023 10:31 AM CUSTOM MARINE CANVAS FABRICATOR) No Kasandra An [facility] Lifestyle:Decrea se anxiety / depression / stress levels Lifestyle No Elsa Munoz MA documented as of this encounter Procedures Procedure Name Priority Date/Time Associated Diagnosis Comments TSH Routine 02/12/2025 2:23 PM CDT Acquired hypothyroidism documented in this encounter Results * (ABNORMAL) TSH (02/12/2025 2:23 PM CDT) TSH 0.189(L) 0.450 - 4.500 uIU/mL [facility] INSURANCE BILL Blood BLOOD SPECIMEN / Unknown 02/12/2025 2:23 PM CDT 02/12/2025 Narrative [facility] INSURANCE BILL - 02/13/2025 10:10 AM CDT Performed at: [address] [id number] Financial Foundations Representative: Shmuel Deal PhD, Phone: [phone] us Natanael Tai MD LAB - CHEMISTRY ORDERABLES Fi nal Result Performing Organization Address City/State/[facility] Co de Phone Number [facility] INSURANCE BILL [address] [place] [address] documented in this encounter Visit Diagnoses Diagnosis Acquired hypothyroidism- Primary documented in this encounter Care Teams Security Incident Response Specialist Relationship Specialty Start Date End Date Natanael Tai MD [address] [phone] PCP - General Internal Medicine 11/11/11 Natanael Tai MD [address] [facility] [address] [place] [phone] PCP - Attributed-MSSP 12/30/16 Gunnar Greenfield MD [address] [place] [address] Psychiatry 07/05/14 Christoph Jaffe MD [address] [facility] [address] [place] [address] Ophthalmology 01/19/17 Brando Hitchcock MD [address] [facility] [address] [place] [address] Gastroenterology 02/25/18 Genaro Santiago MD [address] [place] [address] Pulmonary Disease 08/01/18 Dat Garcia MD [address] [place] [address] [place] [phone] Ophthalmology 10/10/20 Randall Harrison MD [address] [place] [address] [place] [phone] Dermatology 05/02/21 Ivan Zimmerman MD [address] [place] [address] Dermatology 05/02/21 Delmar Mayers MD [address] [facility] [address] [place] [address] Cardiology 07/02/22 Louisa Fuller MD [address] [place] [address] Dermatology 01/04/23 documented as of this encounter
--- OUTSIDE RECORDS SUMMARY | 2025-02-14 11:29 | XMS_ITS | Encounter Summary ---
Author Organization [facility] Address [address] [place] [address] Care Team Providers Care Hogshead Roller Name Role Phone Unavailable Primary Care Provider Unavailabl e Encounter Details Date Type Department Care Team (Late st Contact Info) Description 10/29/2017 Lab Requisition [facility] [address] [place] [address] [address] [place] [address] Anthony Solano MD [address] [place] [address] Hypothyroidism; Vitamin D deficiency; Bacterial infection Social History Tobacco Use Types Packs/Day Years Used Date Smoking Tobacco: Never Assessed Sex and Gender Information Value Date Recorded Sex Assigned at Not on file Legal Sex Male 4:[address] INS[address]OR Gender Identity Not on file Sexual Orientation Not on file documented as of this encounter Plan of Treatment Not on file documented as of this encounter Visit Diagnoses Diagnosis Hypothyroidism Unspecified hypothyroidism Vitamin D deficiency Unspecified vitamin D deficiency Bacterial infection Bacterial infection, unspecified, in conditions classified elsewhere and of unspecified site documented in this encounter
--- OUTSIDE RECORDS SUMMARY | 2025-02-14 11:29 | XMS_ITS | Clinical Summary ---
Author Organization [facility] Address [address] [place] [address] Care Team Providers Care Shower Room Attendant Name Role Phone Natanael Tai MD Primary Care Provider [phone] [place] MD Unavailable [phone] Allergies Active Allergy Reactions Criticality Noted Date Comments Angiotensin Ii Angioedema High 02/09/2019 Suspected from ACEI, so also avoid ARB's Lisinopril Swelling Medium possible angioedema Penicillins Unknown 10/20/2017 As a child- unsure of reaction Risperidone Other (See comments) Medium 01/27/2013 Leg was dragging and has since resolved since being taken off of this medication Medications atorvastatin (LIPITOR) 10 mg tablet take 1 tablet by oral route every day 0 0 6 Active Additional Information Patient taking differently:10 mgoral Every morning, Indications: hyperlipidemia, Informant: Self, Reported on 10/16/2020 acetaminophen (TYLENOL) 325 mg tablet Take 325 mg by mouth as needed TAKE 1 TABLET DAILY. 8 Active amLODIPine (NORVASC) 5 mg tabletIndications :hypertension Take 5 mg by mouth every morning Take 1 tablet daily. 8 Active calcium carbonate-vitamin D3 1500 mg (600 mg elemental) -200 units per tabletIndications :Vitamin D Deficiency Take 1,500 mg by mouth every morning TAKE 1 TABLET DAILY. 8 Active docusate sodium (COLACE) 100 mg capsuleIndication s:constipation Take 100 mg by mouth 2 (two) times a day as needed for constipation. TAKE 1 CAPSULE TWICE DAILY NEEDED FOR CONSTIPATION. Active ergocalciferol (VITAMIN D) 50,000 unit capsuleIndication s:Vitamin D Deficiency Take 50,000 Units by mouth every 30 (thirty) days Active mirtazapine (REMERON) 45 mg tabletIndications :major depressive disorder Take 45 mg by mouth nightly TAKE 1 TABLET BY MOUTH EVERY NIGHT AT BEDTIME. 8 Active tamsulosin (FLOMAX) 0.4 mg extended release capsuleIndication s:benign prostatic hyperplasia with lower urinary tract sx Take 0.8 mg by mouth nightly TAKE ONE CAPSULE BY MOUTH DAILY. Active prednisoLONE acetate (PRED FORTE) 1 % ophthalmic suspensionIndicat ions:post cornea transplant Administer 1 drop into both eyes every other day 0 8 Active ARIPiprazole (ABILIFY) 2 mg tabletIndications :Depression Treatment Adjunct Take 1 mg by mouth nightly Active polyethylene glycol (MIRALAX) 17 gram/dose powderIndications :constipation Take 17 g by mouth once daily as needed 8 Active levothyroxine (SYNTHROID) 112 mcg tabletIndications :hypothyroidism Take 112 mcg by mouth cra officer before breakfast 1 9 Active aspirin 81 mg chewable tabletIndications :heart health Take 81 mg by mouth every morning Active terbinafine (LamISIL) 1 % creamIndications: tinea pedis Apply 1 application topically nightly 1 Active melatonin 5 mg capsuleIndication s:sleep Take 5 mg by mouth nightly Active buPROPion (WELLBUTRIN) 100 mg tabletIndications :major depressive disorder Take 450 mg by mouth every morning Active triamcinolone (KENALOG) 0.1 % cream 1 Active methylphenidate HCl (RITALIN) 5 mg tabletIndications :Attention-Defici t Hyperactivity Disorder,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 Take second tab by 1 PM. Check blood pressure daily. 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 He had not responded to conservative therapy. He is an appropriate candidate for botulinum toxin injection. We increased the Botox dose today because he would like the benefits to last longer. The risks, benefits, and alternatives to chemodenervation were explained. A signed consent was obtained. Recs: Botulinum toxin injected as follows: EMG: EMG provided Botulinum Injected into the following muscles 09/03/2021 Medication Botox Total Toxin injected 400 Dilution 1 Total Left Flexor Digitorum Superficilis 80 Left Pectoralis Major Total Unit 20 Total Left Brachioradialis 40 Total Left Flexor Carpi Ulnaris 40 Left Flexor Digitorum Profundus Total Unit 40 Left Pronator Total Unit 60 Left Biceps Brachii Total Unit 40 Left Lumbricales I Total Unit 15 Left Lumbricales II Total Unit 15 Left Lumbricales III Total Unit 25 Left Lumbricales IV Total Unit 25 Waste Amount 0 Assessment & Plan (06/04/2021 2:38 PM CORRUGATOR): 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 He had not responded to conservative therapy. He is an appropriate candidate for botulinum toxin injection. We increased the Botox dose today because he would like the benefits to last longer. The risks, benefits, and alternatives to chemodenervation were explained. A signed consent was obtained. Recs: Botulinum toxin injected as follows: EMG: EMG provided Botulinum Injected into the following muscles 06/04/2021 Medication Botox Total Toxin injected 400 Dilution 1 Total Left Flexor Digitorum Superficilis 80 Left Pectoralis Major Total Unit 20 Total Left Brachioradialis 40 Total Left Flexor Carpi Ulnaris 40 Left Flexor Digitorum Profundus Total Unit 40 Left Pronator Total Unit 60 Left Biceps Brachii Total Unit 40 Left Lumbricales I Total Unit 15 Left Lumbricales II Total Unit 15 Left Lumbricales III Total Unit 25 Left Lumbricales IV Total Unit 25 Waste Amount 0 Assessment & Plan (03/05/2021 3:24 PM CDT): 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 He had not responded to conservative therapy. He is an appropriate candidate for botulinum toxin injection. We increased the Botox dose today because he would like the benefits to last longer. The risks, benefits, and alternatives to chemodenervation were explained. A signed consent was obtained. Recs: Botulinum toxin injected as follows: EMG: EMG provided Botulinum Injected into the following muscles 03/05/2021 Medication Botox Total Toxin injected 400 Dilution 1 Total Left Flexor Digitorum Superficilis 80 Left Pectoralis Major Total Unit 20 Total Left Brachioradialis 40 Total Left Flexor Carpi Ulnaris 40 Left Flexor Digitorum Profundus Total Unit 40 Left Pronator Total Unit 60 Left Biceps Brachii Total Unit 40 Left Lumbricales I Total Unit 15 Left Lumbricales II Total Unit 15 Left Lumbricales III Total Unit 25 Left Lumbricales IV Total Unit 25 Waste Amount 0 Assessment & Plan (11/27/2020 2:22 PM CDT): 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 He had not responded to conservative therapy. He is an appropriate candidate for botulinum toxin injection. We increased the Botox dose today because he would like the benefits to last longer. The risks, benefits, and alternatives to chemodenervation were explained. A signed consent was obtained. Recs: Botulinum toxin injected as follows: EMG: EMG provided Botulinum Injected into the following muscles 11/27/2020 Medication Botox Total Toxin injected 400 Dilution 1 Total Left Flexor Digitorum Superficilis 80 Left Pectoralis Major Total Unit 20 Total Left Brachioradialis 40 Total Left Flexor Carpi Ulnaris 40 Left Flexor Digitorum Profundus Total Unit 40 Left Pronator Total Unit 60 Left Biceps Brachii Total Unit 40 Left Lumbricales I Total Unit 15 Left Lumbricales II Total Unit 15 Left Lumbricales III Total Unit 25 Left Lumbricales IV Total Unit 25 Waste Amount 0 Assessment & Plan (08/21/2020 2:24 PM CORRUGATOR): 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 He had not responded to conservative therapy. He is an appropriate candidate for botulinum toxin injection. We increased the Botox dose today because he would like the benefits to last longer. The risks, benefits, and alternatives to chemodenervation were explained. A signed consent was obtained. Recs: Botulinum toxin injected as follows: EMG: EMG provided Botulinum Injected into the following muscles 08/21/2020 Medication Botox Total Toxin injected 380 Dilution 1 Total Left Flexor Digitorum Superficilis 80 Left Pectoralis Major Total Unit 20 Total Left Brachioradialis 40 Total Left Flexor Carpi Ulnaris 40 Left Flexor Digitorum Profundus Total Unit 40 Left Pronator Total Unit 60 Left Biceps Brachii Total Unit 40 Left Lumbricales I Total Unit 15 Left Lumbricales II Total Unit 15 Left Lumbricales III Total Unit 15 Left Lumbricales IV Total Unit 15 Waste Amount 20 Assessment & Plan (05/22/2020 3:56 PM CDT): 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 He had not responded to conservative therapy. He is an appropriate candidate for botulinum toxin injection. We increased the Botox dose today because he would like the benefits to last longer. The risks, benefits, and alternatives to chemodenervation were explained. A signed consent was obtained. Botulinum toxin injected as follows: EMG: EMG provided Botulinum Injected into the following muscles 05/22/2020 Medication Botox Total Toxin injected 360 Dilution 1 Total Left Flexor Digitorum Superficilis 80 Left Pectoralis Major Total Unit 20 Total Left Brachioradialis 40 Total Left Flexor Carpi Ulnaris 40 Left Flexor Digitorum Profundus Total Unit 40 Left Pronator Total Unit 60 Left Biceps Brachii Total Unit 40 Left Lumbricales I Total Unit 10 Left Lumbricales II Total Unit 10 Left Lumbricales III Total Unit 10 Left Lumbricales IV Total Unit 10 Waste Amount 40 Assessment & Plan (02/14/2020 3:43 PM CDT): 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 He had not responded to conservative therapy. He had good benefit from his last set of injections, but the benefit had worn off. He is an appropriate candidate for botulinum toxin injection. The risks, benefits, and alternatives to chemodenervation were explained. A signed consent was obtained. Recommendations: Botulinum toxin injected as follows: EMG: EMG provided Botulinum Injected into the following muscles 02/14/2020 Medication Botox Total Toxin injected 300 Dilution 1 Total Left Flexor Digitorum Superficilis 60 Left Pectoralis Major Total Unit 20 Total Left Brachioradialis 40 Total Left Flexor Carpi Ulnaris 40 Left Flexor Digitorum Profundus Total Unit 40 Left Pronator Total Unit 60 Left Biceps Brachii Total Unit 40 Waste Amount 0 Assessment & Plan (04/05/2019 4:27 PM CDT): Assessments: 1. 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 He had not responded to conservative therapy. He is an appropriate candidate for botulinum toxin injection. The risks, benefits, and alternatives to chemodenervation were explained. A signed consent was obtained. Recommendations: Botox injection per diagram with EMG guidance. Medications Given: 260 U (amount wasted: 40 U) injected into the following muscles using a 1 cc dilution: 40U Flexor Carpi Ulnaris (left) 60U Flexor Digitorum Profundus (left) 40U Pronator Teres (left) 20U Flexor Digitorum Profundus (left) 20U Flexor Digitorum Superficialis (left) 40U Biceps Brachii (left) 20U Brachioradialis (left) 20U Pectoralis Minor (left) BRIGHT (obstructive sleep apnea) 04/25/2018 Alteration of sensations, post-stroke 10/29/2017 Hemiparesis following cerebrovascular accident ( CVA) 10/29/2017 Hypertension 10/29/2017 Visual field loss following stroke 10/29/2017 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 Surgical History Surgery Date Site/Laterality Comments SHOULDER SURGERY 07/26/2017 - 07/25/2018 Right replacement JOINT REPLACEMENT 07/26/2017 - 07/25/2018 shoulder CORNEAL TRANSPLANT 07/26/2016 - 07/25/2017 Bilateral CATARACT EXTRACTION 07/26/2015 - 07/25/2016 Bilateral EYE SURGERY 10/30/2020 Left Direct brow lift, left eye (OS) Medical History Medical History Date Comments Hx Other Medical Tremor Hx Other Medical T&A Depression Depression Hx Other Medical Hyperlipidemia Personal history of other en docrine, nutritional and metabolic disease History of hyperpara thyroidism - (Added by TW Conv) Joint pain Chronic kidney disease Thyroid disease Sleep apnea Family History Medical History Relation Name Comments Other Brother Oral; Anuerysm Father aneurysm; COPD Mother COPD; Anesthesia problems Neg Hx Glaucoma Neg Hx Macular degeneration Neg Hx Retinal detachment Neg Hx Relation Name Status Comments Brother Father Mother Social History Tobacco Use Types Packs/Day Years Used Date Smoking Tobacco: Never Smokeless Tobacco: Never Alcohol Use Standard Drinks/Week Comments Yes 0 (1 standard drink = 0.6 oz pur e alcohol) AUDIT-C Answer Date Recorded Q1: How often do you have a drink containing alc ohol? Monthly or less 10/30/2020 Q2: How many drinks containi ng alcohol do you have on a typical day when you are drinking? 1 or 2 10/30/2020 Q3: How often do you have si x or more drinks on one occasion? Never 10/30/2020 Sex and Gender Information Value Date Recorded Sex Assigned at Not on file Legal Sex Male 2:53 AM CORRUGATOR Gender Identity Male 09/03/2020 3:03 PM CORRUGATOR Sexual Orientation Not on file Obstetrics History Last Filed Vital Signs Vital Sign Reading Time Taken Comments Blood Pressure 134/78 09/03/2021 1:19 PM CORRUGATOR Pulse 77 09/03/2021 1:19 PM CORRUGATOR Temperature 36.2 C (97.1 F) 05/06/2021 8:31 AM CDT Respiratory Rate 16 10/30/2020 11:10 AM CDT Oxygen Saturation 100% 10/30/2020 11:10 AM CDT Inhaled Oxygen Concentration - - Weight 93.4 kg (206 lb) 09/03/2021 1:19 PM CORRUGATOR Height 177.8 cm (5' 10) 09/03/2021 1:19 PM CORRUGATOR Body Mass Index 29.56 09/03/2021 1:19 PM CORRUGATOR Plan of Treatment Not on file Insurance MEDICARE FOR[facility]LY [facility] MEDICARE FORMERLY [facility] [place] [address] MEDICARE Advance Directives For more information, please contact: [phone] Documents on File Type Date Recorded Patient Controls Operator Molded Goods Expl anation ADVANCE DIRECTIVE 09/21/2017 12:00 AM Care Teams Shower Room Attendant Relationship Specialty Start Date End Date Natanael Tai MD [address] [place] [address] PCP - General 05/07/16 Villa Garcia MD [address] [place] [address] Surgeon Ophthalmology 10/30/20
--- OUTSIDE RECORDS SUMMARY | 2025-02-14 11:29 | XMS_ITS | Clinical Summary ---
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 Name Role Phone Natanael Tai MD Primary Care Provider Gunnar Greenfield MD Unavailable Natanael Tai MD Unavailable Christoph Jaffe MD Unavailable [phone] Brando Hitchcock MD Unavailable Genaro Santiago MD Unavailable Dat Garcia MD Unavailable Randall Harrison MD Unavailable Ivan Zimmerman MD Unavailable [phone] Delmar Mayers MD Unavailable [phone] Louisa Fuller MD Unavailable [phone] Source Comments [facility],non-owned Affiliates and Associated Physician Practices is amultiple site organization consisting of ambulatory clinics and hospital sitesin [place], [place], [place] and [place]. This disclosure is being madepursuant to the Care Everywhere program and may not contain all information available regarding this patient. Last updated 18.[facility] Allergies Active Allergy Reactions Criticality Noted Date Comments Angiotensin Receptor Blockers Angioedema High 02/09/2019 Suspected from ACEI, so also avoid ARB's Lisinopril Swelling Medium possible angioedema Penicillin G Unknown Medium Risperidone Other Medium 01/27/2013 Leg was dragging and has since resolved since being taken off of this medication Medications * Be aware that medications may not be up to date on this document. Alwaysverify current medications with the patient. ARIPiprazole (ABILIFY) 2 MG tablet Take 0.5 (one-half) tablet by mouth at bedtime Active polyethylene glycol 3350 (MIRALAX) 17 GM/SCOOP powder Take 17 (seventeen) g by mouth once daily as needed for Constipation (about 2-3 times per week.) 2017 Active mirtazapine (REMERON) 45 MG tablet Take 1 (one) tablet by mouth at bedtime 2 2017 Active buPROPion XL 24hr (WELLBUTRIN-XL) 150 MG tablet Take 1 (one) tablet by mouth once daily Takes 300 mg XL in Am with 150 mg XL in AM 2017 Active aspirin (ASPIRIN) 81 MG tablet Take 1 tablet by mouth once daily 2017 Active acetaminophen (TYLENOL) 325 MG tablet Take 2 (two) tablets by mouth every 6 hours as needed for Fever or Pain Maximum allowable Acetaminophen amount = 4 Grams (4000 mg) / 24 hours. Active buPROPion XL 24hr (WELLBUTRIN-XL) 300 MG tablet Take 1 (one) tablet by mouth once daily Takes 300 mg XL in AM with 150 mg XL in AM 1 2017 Active prednisoLONE acetate (PRED FORTE) 1 % ophthalmic suspension Instill 1 (one) drop into both eyes every 2 days 2017 Active cyanocobalamin (VITAMIN B-12) 500 MCG tablet Take 1 tablet by mouth once daily 2019 Active melatonin 5 MG sl tablet Take 1 (one) tablet by mouth at bedtime Active triamcinolone acetonide (KENALOG) 0.1 % creamIndications:Rash APPLY TO THE AFFECTED AREA THREE TIMES DAILY NEEDED FOR RIGHT FOOT AND ANKLE 45 g 1 2020 Active albuterol HFA (Proventil; Ventolin; Proair) 108 (90 Base) MCG/ACT inhalerIndications:ARRINGTON (dyspnea on exertion) Inhale 2 (two) puffs by mouth every 6 hours as needed for Shortness of Breath, Wheezing or Cough 1 g 5 2022 Active Belsomra 15 MG tablet Take 1 (one) tablet by mouth at bedtime 2024 Active atorvastatin (Lipitor) 10 MG tabletIndications:Pure hypercholesterolemia TAKE 1 TABLET BY MOUTH AT BEDTIME FOR HIGH CHOLESTEROL 90 tablet 1 2024 Active ketoconazole (Nizoral) 2 % shampooIndications:Oth er seborrheic dermatitis Apply to wet hair, leave on for 3 minutes, then rinse; three times weekly. 30 days supply 120 mL 11 2024 Active clindamycin (Cleocin) 300 MG capsule Take 1 (one) capsule by mouth 3 times daily 2024 Active vitamin D, ergocalciferol, (Drisdol) 1.25 MG (79241 UT) capsuleIndications:Vit amaya D insufficiency TAKE 1 CAPSULE BY MOUTH EVERY 7 DAYS, WITH DINNER 7 capsule 2024 Active tamsulosin (Flomax) 0.4 MG capsule TAKE 2 CAPSULES BY MOUTH EVERY DAY 30 MINUTES AFTER A MEAL AT THE SAME TIME EVERY DAY 180 capsule 2024 Active levothyroxine (Synthroid) 112 MCG tabletIndications:Hypo thyroidism Take 1 (one) tablet by mouth once daily Reasons: Underactive Thyroid 90 tablet 1 2024 Active tamsulosin (Flomax) 0.4 MG capsule TAKE 2 CAPSULES BY MOUTH EVERY DAY 30 MINUTES AFTER A MEAL AT THE SAME TIME EVERY DAY 180 capsule 1 01/16 Discontinued levothyroxine (Synthroid) 125 MCG tabletIndications:Hypo thyroidism Take 1 (one) tablet by mouth once daily Stop the 100-mcg tablets. Reasons: Underactive Thyroid 90 tablet 1 02/04 Discontinued( Dose Adjustment) Active Problems Problem Noted Date Diagnosed Date History of cornea transplant 07/04/2024 Overview (07/04/2024): Bilateral in [address] Christoph Jaffe. 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 Neoplasm of uncertain behavior of skin Solar lentiginosis 01/21/2021 Melanocytic nevi of trunk 01/21/2021 Peripheral visual field defect of left eye 10/13 Overview (01/09/2021): Questionable versus nick-neglect. Added automatically from request for surgery [id number] Hemiparesis affecting left side as late effect o f stroke 08/22/2020 Overview (10/09/2021): 09/02/2021 OV,Dr. Tai 09/12/2019 OV, Dr. Zaire Tai, Natanael Brewster MD on 09/12/19 Hyperglycemia 02/11/2020 Osteoarthritis of shoulder region 09/12/2019 Pain in limb 09/12/2019 Atherosclerosis of aorta 04/06/2019 Overview (10/09/2021): 09/02/2021 Dr. Zaire BARNARD 09/18/2019 OV, vonnie Tai CT Abd & Pelvis Atherosclerosis and ectasia of the aorta is unchanged. 09/24/2017 Aortic ectasia 04/06/2019 Overview (10/09/2021): 09/02/2021 OVDr. Tai 09/18/2019 OV, Dr. Tai CT Abd & Pelvis Atherosclerosis and ectasia of the aorta is unchanged. 09/24/2017 Vitamin D insufficiency 08/01/2018 BPH with obstruction/lower urinary tract symptom s 08/01/2018 Overview (06/04/2020): Hesitancy. With tamsulosin, some urgency. Impaired mobility and ADLs 06/04/2018 Spasticity 04/29/2018 Overview (02/20/2020): Last Assessment & Plan: 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 [...] Brachii Total Unit 40 Waste Amount 0 BRIGHT (obstructive sleep apnea) 04/25/2018 Subluxation of left shoulder joint 12/03/2017 Visual field loss following stroke 10/29/2017 History of TIA (transient ischemic attack) 09/22 Overview (09/22/2017): 04/2015. History of anemia 09/22/2017 Diastolic dysfunction 09/22/2017 Overview (09/22/2017): Grade 1. Trace aortic regurgitation by prior echocardiogr am 09/22/2017 Trace mitral regurgitation by prior echocardiogr am 09/22/2017 Trace pulmonic regurgitation by prior echocardio gram 09/22/2017 Trace tricuspid regurgitation by prior echocardi ogram 09/22/2017 History of stroke 09/17/2017 Overview (10/27/2017): Right brain, left hemiparesis, dysphagia, dysarthria. Complicated by Staph sepsis and liver abscess. [facility], [place], [place] [facility] program. Left hemineglect also. Goal home 2-3 weeks most likely. Natanael Tai MD 10/27/2017 5:09 PM No CPR or defibrillation, us e all other resuscitative measures 08/23/2017 Seborrheic keratosis 01/19/2017 Overview (01/19/2017): Right shoulder area. Intention tremor 05/07/2016 Overview (08/23/2017): Overview: Action tremor Cerebellar dysmetria 05/22/2015 Overview (08/23/2017): Mild subtle right leg heel to corral, and action tremor as noted. Other hyperlipidemia 10/18/2012 Acquired hypothyroidism 03/24/2011 Recurrent major depression in full remission 07/1979 Overview (12/10/2021): 09/02/2021 OV, Dr. Tai 02/20/2020 OV, Dr. Tai Major depression with paranoia. In remission. Dr. Gunnar Greenfield follows. Perseverates with mild bad news. Resolved Problems Problem Noted Date Diagnosed Date Resolved Date It band syndrome, left 01/03/202407/04 Pain of right hip joint 03/23/202212/24 Actinic keratosis 01/21/2021 07/04/2024 Brow ptosis, left 10/13/2020 01/09/2021 Overview (01/09/2021): Added automatically from request for surgery [id number] Rash 10/10/2020 11/07/2020 Overview (10/10/2020): Right ankle - to try triamcinolone. Knee joint effusion 09/12/2019 07/04/20 24 Atypical chest pain 09/12/2019 07/04/20 24 CKD (chronic kidney disease) stage 3 04/06/2019 10/10/2020 Overview (04/06/2019): GFR's 12/02/2016 and 06/24/2016 Greater trochanteric bursitis, right 02/09/2019 01/03/2024 Spasticity 04/29/2018 06/03/2020 History of hemorrhagic strok e with residual hemiplegia 02/25/2018 04/06/2019 Daytime sleepiness 02/25/2018 9 Left hemiparesis 12/03/2017 04/06/2019 Acute respiratory failure with hypoxemia 11/24/2017 12/03/2017 Constipation 11/24/2017 12/22/2017 Dysphagia 11/24/2017 12/03/2017 Hypernatremia 11/24/2017 12/03/2017 Hypertension 11/24/2017 02/20/2020 Localized pruritus 11/24/2017 4 MSSA (methicillin susceptibl e Staphylococcus aureus) septicemia 11/24/2017 12/03/2017 Sepsis 11/24/2017 12/03/2017 Alteration of sensations, post-stroke 10/29/2017 04/06/2019 History of CVA (cerebrovascular accident) 10/29/2017 04/06/2019 Snoring 09/22/2017 04/25/2018 Fuchs' corneal dystrophy of both eyes 04/02/2017 07/04/2024 Overview (07/02/2023): Dr. Christoph Jaffe ophthalmology. Left corneal transplant January 2017. Right corneal transplant done March 2017. Much improved with corneal transplants. Memory difficulty 10/18/2012 01/27/2013 Overview (01/27/2013): Negative evaluation. Arthritis of right shoulder region 10/18/2012 01/04/2023 Paroxysmal atrial fibrillation 09/12/2019 Overview (09/12/2019): infrequent he believes, less than a minute or so infrequently, about 2 times per year. Encounters Date Type Department Care Team Description 02/14/2025 Telephone [facility] [address] [place] [phone] Natanael Tai MD Weakness Extremity; Fall 02/04/2025 Results Follow-Up [facility] [address] [place] [phone] Natanael Tai MD 01/14/2025 Refill [facility] [address] [place] [phone] Natanael Tai MD Refill Request 11/15/2024 Refill [facility] [address] [place] [phone] Nataanel Tai MD Refill Request from Last 3 Months Immunizations Immunization Administration Dates Next Due INFLUENZA VACCINE, TRIV. (AF LURIA, FLUZONE TRIVALENT; 6MO+) (IIV3) 04/25/2011 COVID - 19, HISTORIC VACCINE 05/27/2024 COVID PFIZER 12+YR 30MCG/0.3mL 01/03/2024 COVID PFIZER BIVALENT 12Y+ 30mcg/0.3ML 07/02/2022 Comirnaty Covd-19 Mrna Vacci ne (Nucleoside Modified) 05/13/2023 Covid Moderna primary monova lent 12+ yr 0.5mL 05/27/2024,05/27/2021,10/08/2020,2020 FLU VACCINE TRI IIV3 SPLIT P F IM (FLUVIRIN) 06/29/2013 FLU, HISTORIC VACCINE 05/27/2024 INFLUENZA VACCINE 06/04/2022,,05/25/2019,2016,07/08/2016,04/25/2012,04/25/2011,1 INFLUENZA VACCINE, CELL CULT URE, QUADR. (FLUCELVAX QUADRIVALENT; 6MO+) (CCIIV4) 05/02/2021 INFLUENZA VACCINE, HIGH-DOSE , QUADR. (FLUZONE HIGH-DOSE QUADRIVALENT; 65Y+), 0.7 ML (HD-IIV4) 05/13/2023,05/24/2020,05/25/2019,2016,07/08/2016 INFLUENZA VACCINE, HIGH-DOSE , TRIV. (FLUZONE HIGH-DOSE TRIVALENT; 65Y+) (HD-IIV3) 04/02/2017,07/08/2016 INFLUENZA VACCINE, QUADR. (F LUZONE; FLULAVAL; FLUARIX; AFLURIA QUADRIVALENT; 6MO+), 0.5 ML (IIV4) 06/11/2015,07/05/2014 PNEUMOCOCCAL PPSV23 08/23/2017,02/18/2012 Pneumococcal Pcv13 Conj 07/05/2014 RSV ABRYSVO PREG OR 60y+ 0.5mL 07/12/2023 TDAP (7yrs+) 01/31/2024,03/24/2011 ZOSTER VACCINE, LIVE 04/25/2016 Zoster Hzv Vacc Recombinant Inj Im 02/23/2019, iNFLUENZA VACCINE, RECOM-YOU, QUADR. (FLUBLOCK QUADRIVALENT; 18Y+) (RIV4) 04/12/2018 Family History Medical History Relation Name Comments Alcohol abuse Brother Alcohol abuse Father aneurysm, aort a Aneurysm Father aorta None Known Maternal Aunt None Known Maternal Grandfather None Known Maternal Grandmother Suicide Maternal Uncle COPD - Chronic Obstructive P ulmonary Disease Mother of this Cancer - Breast Mother None Known Other None Known Paternal Aunt None Known Paternal Grandfather None Known Paternal Grandmother None Known Paternal Uncle None Known Sister Asthma Neg Hx CVA Neg Hx Cancer - Other Neg Hx Cancer - Skin, Melanoma Neg Hx Cancer - Skin, Non Melanoma Neg Hx Eczema Neg Hx Hemophilia Neg Hx Psoriasis Neg Hx Relation Name Status Comments Brother Father Maternal Aunt Maternal Grandfather Maternal Grandmother Maternal Uncle Mother Other Paternal Aunt Paternal Grandfather Paternal Grandmother Paternal Uncle Sister Social History Tobacco Use Types Packs/Day Years Used Date Smoking Tobacco: Never Smokeless Tobacco: Never Tobacco Cessation:Counseling Given: Yes Alcohol Use Standard Drinks/Week Comments Yes 0 (1 standard drink = 0.6 oz pur e alcohol) 1-2 per month PHQ-2 Answer Date Recorded Patient Health Questionnaire-2 Score 0 12/31/2024 Sex and Gender Information Value Date Recorded Sex Assigned at Not on file Legal Sex Male 6:53 AM 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 Gender Identity Not on file Sexual Orientation Not on file 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 pt reported Body Mass Index 30.85 06/06/2024 1:02 PM 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 Plan of Treatment Upcoming Encounters Date Type Department Care Team (Late st Contact Info) Description 04/06/2025 2:00 PM CDT Office Visit [facility] - Internal Medicine [address] [place] [phone] Natanael Tai MD [address] [place] [address] 05/08/2025 2:00 PM CDT Office Visit [facility] - Dermatology [address] [place] [address], [place] [phone] Ivan Zimmerman MD [address] [place] [address] [address] [place] [address] Health Maintenance Due Date Last Done Comments COVID-19 VACCINE ( season) 2024 05/27/2024, 01/03/2024, 05/13/2023, Additional history exists DEPRESSION SCREENING 07/26/2024 01/03/2024, 07/02/2023, 06/22/2023, Additional history exists MEDICARE AWV 12 MONTHS 01/02/2025 01/03/2024, 01/04/2023, 12/10/2021, Additional history exists INFLUENZA VACCINE (#1) 2025 , 05/13/2023, 06/04/2022, Additional history exists DTAP/TDAP/TD VACCINES (3 - Td or Tdap) 01/30/2034 01/31/2024, 03/24/2011 PNEUMOCOCCAL VACCINE 50+ Completed 018, 07/05/2014, 02/18/2012 ZOSTER VACCINE Completed 02/23/2019, 0508/2018, 04/25/2016 Respiratory Syncytial Virus (RSV) Vaccine Pt: or over 60 yrs Completed 07/12/2023 HEPATITIS B VACCINE Aged Out No longe r eligible based on patient's age to complete this topic HIB VACCINE Aged Out No longer eligi ble based on patient's age to complete this topic HPV VACCINE Aged Out No longer eligi ble based on patient's age to complete this topic MENINGOCOCCAL (Group B) VACCINE SHARED DECISION-MAKING Aged Out No longer eligible based on patient's age to complete this topic MENINGOCOCCAL GROUPS A/C/Y/W VACCINE Aged Out No longer eligible based on patient's age to complete this topic Goals Goal Patient Goal Type Associated Problems Recent Progress Patient-Stated? Author Blood Pressure < 140/90 Blood Pressure 120/72(2023 10:31 AM 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) No Kasandra An SSBarb Lifestyle:Decrea se anxiety / depression / stress levels Lifestyle No Elsa Munoz MA Procedures Procedure Name Priority Date/Time Associated Diagnosis Comments TSH Routine 02/12/2025 2:23 PM CDT Acquired hypothyroidism TSH Routine 02/01/2025 8:27 AM CDT Acquired hypothyroidism from Last 3 Months Results * (ABNORMAL) TSH (02/12/2025 2:23 PM CDT) Only the most recent of2 resultswithin the time period is included. TSH 0.189(L) 0.450 - 4.500 uIU/mL [facility] INSURANCE BILL Blood BLOOD SPECIMEN / Unknown 02/12/2025 2:23 PM CDT 02/12/2025 Narrative [facility] INSURANCE BILL - 02/13/2025 10:10 AM CDT Performed at: [address] [place] [id number] [employer] Farmers: Shmuel Deal PhD, Phone: [phone] Natanael Tai MD LAB - CHEMISTRY ORDERABLES Fi nal Result [facility] INSURANCE BILL [address] [place] [address] from Last [address] [place] [id number] MEDICARE ANTHEM MEDICARE ANTHEM Advance Directives Documents on File Type Date Recorded Patient Delinquent Account Clerk Expl anation Adv Directive/Living Will/POA 02/10/2019 8:30 AM POWER OF PERSONNEL ASSISTANT * DNR - IF PULSELESS NO CPR, NO SHOCK (Latest Code Status on File) Date Activated Date Inactivated Comments 09/12/2019 5:08 PM 09/14/2019 4:53 PM Question Answer Comments : DO NOT discontinue a ny active orders without asking attending physician. Care Teams Fertilizing Machine Operator Relationship Specialty Start Date End Date Natanael Tai MD [address] [facility] [address] [place] [phone] PCP - General Internal Medicine 11/11/11 Natanael Tai MD [address] [facility] [address] [place] [address] PCP - Attributed-MSSP 12/30/16 Gunnar Greenfield MD [address] [place] [address] Psychiatry 07/05/14 Christoph Jaffe MD [address] [facility] [address] [place] [address] Ophthalmology 01/19/17 Brando Hitchcock MD [address] [facility] [address] [place] [address] Gastroenterology 02/25/18 Genaro Santiago MD [address] [facility] [address] [place] [phone] Pulmonary Disease 08/01/18 Dat Garcia MD [address] [place] [address] [place] [phone] Ophthalmology 10/10/20 Randall Harrison MD [address] [facility] [address] [place] [phone] Dermatology 05/02/21 Ivan Zimmerman MD [address] [facility] [address] [place] [address] Dermatology 05/02/21 Delmar Mayers MD [address] [facility] [address] [place] [address] Cardiology 07/02/22 Louisa Fuller MD [address] [facility] [address] [place] [address] Dermatology 01/04/23
--- OUTSIDE RECORDS SUMMARY | 2025-02-14 11:29 | XMS_ITS | Encounter Summary ---
Author Organization [employer] Address 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 Name Role Phone Unavailable Primary Care Provider Unavailabl e Encounter Details Date Type Department Care Team (Late st Contact Info) Description 10/29/2017 Lab Requisition [facility] General Laboratory Services [address] [place] [address] Anthony Solano MD [address] [place] [address] Hypothyroidism; Vitamin D deficiency; Bacterial infection Social History Tobacco Use Types Packs/Day Years Used Date Smoking Tobacco: Never Assessed Sex and Gender Information Value Date Recorded Sex Assigned at Not on file 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 Gender Identity Not on file Sexual Orientation Not on file documented as of this encounter Plan of Treatment Not on file documented as of this encounter Procedures Procedure Name Priority Date/Time Associated Diagnosis Comments TSH REFLEXIVE Routine 10/29/2017 6:45 AM CDT Hypothyroidism Bacterial infection Vitamin D deficiency CBC WITH DIFFERENTIAL Routine 10/29/2017 6:45 AM CDT Hypothyroidism Bacterial infection Vitamin D deficiency VITAMIN D 25 HYDROXY Routine 10/29/2017 6:45 AM CDT Hypothyroidism Bacterial infection Vitamin D deficiency T4 FREE Routine 10/29/2017 6:45 AM CDT Hypothyroidism Bacterial infection Vitamin D deficiency PHOSPHORUS Routine 10/29/2017 6:45 AM CDT Hypothyroidism Bacterial infection Vitamin D deficiency MAGNESIUM LEVEL Routine 10/29/2017 6:45 AM CDT Hypothyroidism Bacterial infection Vitamin D deficiency LIPID PANEL Routine 10/29/2017 6:45 AM CDT Hypothyroidism Bacterial infection Vitamin D deficiency COMPREHENSIVE METABOLIC PANEL Routine 10/29/2017 6:45 AM CDT Hypothyroidism Bacterial infection Vitamin D deficiency documented in this encounter Results * (ABNORMAL) VITAMIN D 25 HYDROXY (10/29/2017 6:45 AM CDT) Pathologist [facility] VITAMIN D TOTAL (25OH) 21(L) 30 - 100 ng/mL 10/29/2017 10:21 AM CDT [facility] [employer] [facility] Blood Collection / Unknown 10/29/2017 6:45 AM CDT 10/29/2017 8:55 AM CDT [facility] - 10/29/2017 10:21 AM CDT Interpretive Data Chart: Deficient: 0 - 20 ng/mL Insufficient: 21 - 29 ng/mL Sufficient: 30 - 100 ng/mL Increased Risk of Hypercalciuria: >100 ng/mL Toxic: >150 ng/mL Anthony Solano MD CHEMISTRY ORDERABLES Final R esult [facility]# [id number] [address] [facility] [place] [address] * (ABNORMAL) CBC WITH DIFFERENTIAL (10/29/2017 6:45 AM CDT) [facility] WBC 5.0 4.0 - 9.8 K/uL 10/29/2017 9:45 AM T [facility] [employer] [facility] RBC 2.89(L) 4.50 - 5.40 M/uL 10/29/2017 9:45 AM T [facility] LABORATORY [facility] HEMOGLOBIN 9.6(L) 13.6 - 16.5 g/dL 10/29/2017 9:45 AM T [facility] HEMATOCRIT 29.5(L) 40.0 - 48.0 % 10/29/2017 9:45 AM [facility] MCV 102.1(H) 82.0 - 99.0 fL 10/29/2017 9:45 AM CDT [email or web address] LABORATORY SERVICES - [facility] MCH 33.2(H) 27.2 - 32.6 pg 10/29/2017 9:45 AM CDT [email or web address] LABORATORY SERVICES - [facility] MCHC 32.5 31.5 - 35.5 g/dL 10/29/2017 9:45 AM CDT [email or web address] LABORATORY SERVICES - [facility] RDW 14.5 11.5 - 14.5 % 10/29/2017 9:45 AM CDT [email or web address] LABORATORY SERVICES - [facility] RDW-STDEV 54.1(H) 37.1 - 48.7 fL 10/29/2017 9:45 AM CDT [email or web address] LABORATORY SERVICES - [facility] PLATELETS 315 140 - 350 K/uL 10/29/2017 9:45 AM CDT [email or web address] LABORATORY SERVICES - [facility] MPV 9.1(L) 9.3 - 12.4 fL 10/29/2017 9:45 AM [email or web address] LABORATORY SERVICES - [facility] NEUTROPHILS 47 % 10/29/2017 9:45 AM CDT [email or web address] LABORATORY SERVICES - . [facility] LYMPHOCYTES 33 % 10/29/2017 9:45 AM CDT [email or web address] LABORATORY SERVICES - . [facility] MONOCYTES 9 % 10/29/2017 9:45 AM CDT [email or web address] LAB[facility]ATORY SERVICES - . [facility] EOSINOPHILS 9 % 10/29/2017 9:45 AM CDT [email or web address] LABORATORY SERVICES - . [facility] BASOPHILS 1 % 10/29/2017 9:45 AM CDT [email or web address] LABORATORY SERVICES - . [facility] IMMATURE GRANULOCYTES 1 % 10/29/2017 9:45 AM [email or web address] LABORATORY SERVICES - . [facility] Comment:IG (Immature Granulo cyte) count includes Metamyelocytes, Myelocytes, and Promyelocytes NEUTROPHIL ABSOLUTE 2.34 1.90 - 7.00 K/uL 10/29/2017 9:45 AM CDT [email or web address] LABORATORY SERVICES - . [facility] LYMPHOCYTE ABSOLUTE 1.64 0.70 - 4.50 K/uL 10/29/2017 9:45 AM CDT [email or web address] LABORATORY SERVICES - . [facility] MONOCYTE ABSOLUTE 0.45 0.10 - 1.30 K/uL 10/29/2017 9:45 AM CDT [email or web address] LABORATORY SERVICES - . [facility] EOSINOPHIL ABSOLUTE 0.44 0.00 - 0.70 K/uL 10/29/2017 9:45 AM CDT [facility] LABORATORY SERVICES - [facility] BASOPHILS ABSOLUTE 0.03 0.00 - 0.20 K/uL 10/29/2017 9:45 AM CDT [facility] LABORATORY SERVICES - [facility] IMMATURE GRANULOCYTES ABSOLUTE 0.06(H) 0.00 - 0.03 K/uL 10/29/2017 9:45 AM CDT [facility] LABORATORY SERVICES - [facility] Blood Collection / Unknown 10/29/2017 6:45 AM CDT 10/29/2017 8:55 AM CDT Anthony Solano MD HEMATOLOGY ORDERABLES Final Result [facility] CLIA# [id number] [address] [place] [address] * (ABNORMAL) TSH REFLEXIVE (10/29/2017 6:45 AM CDT) TSH 8.39(H) 0.27 - 4.20 uIU/mL 10/29/2017 11:27 AM CDT [facility] LABORATORY [facility] Blood Collection / Unknown 10/29/2017 6:45 AM CDT 10/29/2017 8:55 AM CDT Anthony Solano MD CHEMISTRY ORDERABLES Final R esult [facility]# [id number] [address] [place] [address] * (ABNORMAL) LIPID PANEL (10/29/2017 6:45 AM CDT) CHOLESTEROL 183 <200 mg/dL 10/29/2017 10:05 AM CDT [facility] [employer] [facility] TRIGLYCERIDE 100 <150 mg/dL 10/29/2017 10:05 AM CDT [facility] [employer] [facility] HDL 60(H) 40 - 59 mg/dL 10/29/2017 10:05 AM T [facility] [employer] [facility] LDL CALCULATED 103(H) <100 mg/dL 10/29/2017 10:05 AM CDT [facility] NON-HDL CHOLESTEROL 123 <130 mg/dL 10/29/2017 10:05 AM CDT [facility] Blood Collection / Unknown 10/29/2017 6:45 AM CDT 10/29/2017 8:55 AM CDT Narrative [facility] LABORATORY [facility] - 10/29/2017 10:05 AM CDT TOTAL CHOLESTEROL mg/dL Desirable <200 Borderline high 200-239 High >=240 TRIGLYCERIDES mg/dL Normal <150 Borderline high 150-199 High 200-499 Very high >=500 HDL CHOLESTEROL mg/dL Low <40 Normal 40-59 Desirable >=60 NON HDL CHOLESTEROL mg/dL Optimal <130 Near Optimal 130-159 Borderline High 160-189 Very High >=190 Calculated LDL mg/dL Optimal <100 Near Optimal 100-129 Borderline High 130-159 High 160-189 Very High >=190 ATPIII Guidelines Reference Ranges for Lipid Panels (NCEP/AMA) Anthony Solano MD CHEMISTRY ORDERABLES Final R esult [facility] CLIA# [id number] [address] [place] [address] * T4 FREE (10/29/2017 6:45 AM CDT) T4 FREE 1.18 0.90 - 1.70 ng/dL 10/29/2017 11:21 AM CDT [facility] Blood Collection / Unknown 10/29/2017 6:45 AM CDT 10/29/2017 8:55 AM CDT Anthony Solano MD CHEMISTRY ORDERABLES Final R esult [facility] CLIA# [id number] [address] [place] [address] * PHOSPHORUS (10/29/2017 6:45 AM CDT) PHOSPHORUS 4.4 2.5 - 4.5 mg/dL 10/29/2017 10:05 AM CDT [facility] LABORATORY [facility] Blood Collection / Unknown 10/29/2017 6:45 AM CDT 10/29/2017 8:55 AM CDT Anthony Solano MD CHEMISTRY ORDERABLES Final R esult Performing Organization Address City/[facility]/ZIP Co de Phone Number [facility] CLIA# [id number] [address] [place] [address] * MAGNESIUM LEVEL (10/29/2017 6:45 AM CDT) MAGNESIUM 2.1 1.6 - 2.4 mg/dL 10/29/2017 10:05 AM CDT [facility] LABORATORY [facility] Blood Collection / Unknown 10/29/2017 6:45 AM CDT 10/29/2017 8:55 AM CDT Anthony Solano MD CHEMISTRY ORDERABLES Final R esult Performing Organization Address City/[facility] Co de Phone Number [facility] CLIA# [id number] [address] [place] [address] * (ABNORMAL) COMPREHENSIVE METABOLIC PANEL (10/29/2017 6:45 AM CDT) SODIUM 140 136 - 145 mmol/L 10/29/2017 10:05 AM CDT [employer] LABORATORY SERVICES - [facility] POTASSIUM 3.9 3.5 - 5.0 mmol/L 10/29/2017 10:05 AM CDT [employer] LABORATORY SERVICES - . [facility] CHLORIDE 100 98 - 107 mmol/L 10/29/2017 10:05 AM CDT [employer] LABORATORY SERVICES - . [facility] CO2 28 22 - 29 mmol/L 10/29/2017 10:05 AM CDT [employer] LABORATORY SERVICES - . [facility] CALCIUM 8.7 8.6 - 10.2 mg/dL 10/29/2017 10:05 AM [facility] [employer] [facility] BUN 16 8 - 23 mg/dL 10/29/2017 10:05 AM [facility] [employer] [facility] CREATININE 0.94 0.67 - 1.17 mg/dL 10/29/2017 10:05 AM [facility] [email or web address] LABORATORY [facility] Comment: The GFR result is not clinically significant on patients <18 or >70 years of age. GLUCOSE 91 74 - 99 mg/dL 10/29/2017 10:05 AM [facility] [email or web address] LABORATORY [facility] TOTAL PROTEIN 6.0(L) 6.7 - 8.6 g/dL 10/29/2017 10:05 AM [facility] [employer] [facility] ALBUMIN 3.2(L) 3.5 - 5.2 g/dL 10/29/2017 10:05 AM [facility] [employer] [facility] BILIRUBIN TOTAL 0.2 0.2 - 1.1 mg/dL 10/29/2017 10:05 AM [employer] [facility] ALKALINE PHOSPHATASE 69 40 - 129 U/L 10/29/2017 10:05 AM [employer] [facility] AST 19 <41 U/L 10/29/2017 10:05 AM [employer] [facility] ALT 15 <42 U/L 10/29/2017 10:05 AM [employer] [facility] GFR >60 mL/min/1.7 3 sq meter 10/29/2017 10:05 AM [employer] [facility] Comment: eGFR has not been validated for use in the elderly (> 70 years of age), women, patients with serious co-morbid conditions, or persons with extremes of body size or muscle mass and should also be interpreted with caution in patients with acute kidney failure, dialysis dependent patients, patients reporting exceptional dietary intake (e.g. vegetarian diet, high protein diets, creatine supplementation), and patients with severe liver disease. Based on National Kidney Disease Education Program If patient is , please refer to the GFR result. GFR, >60 mL/min/1.7 3 sq meter 10/29/2017 10:05 AM [employer] LABORATORY SERVICES [facility] ANION GAP 12 8 - 16 mmol/L 10/29/2017 10:05 AM CDT [facility] Blood Collection / Unknown 10/29/2017 6:45 AM CDT 10/29/2017 8:55 AM CDT Narrative [facility] LABORATORY [facility] - 10/29/2017 10:05 AM CDT Samples containing indocyanine green cause interferences on Total and/or Direct Bilirubin and must not be measured. Anthony Solano MD CHEMISTRY ORDERABLES Final R esult [facility]# [id number] [address] [place] [address] documented in this encounter Visit Diagnoses Diagnosis Hypothyroidism Unspecified hypothyroidism Vitamin D deficiency Unspecified vitamin D deficiency Bacterial infection Bacterial infection, unspecified, in conditions classified elsewhere and of unspecified site documented in this encounter
--- OUTSIDE RECORDS SUMMARY | 2025-02-14 11:29 | XMS_ITS | Encounter Summary ---
Author Organization [employer] Address 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 Name Role Phone Unavailable Primary Care Provider Unavailabl e Encounter Details Date Type Department Care Team (Late st Contact Info) Description 11/12/2017 Lab Requisition [id number] General Laboratory Services [address] [place] [address] [email or web address] [address] Anthony Solano MD [address] [place] [address] Encounter for general adult medical examination without abnormal findings Social History Tobacco Use Types Packs/Day Years Used Date Smoking Tobacco: Never Assessed Sex and Gender Information Value Date Recorded Sex Assigned at Not on file 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 POTASSIUM 4.0 3.5 - 5.0 mmol/L 11/12/2017 10:27 AM CDT [employer] LABORATORY SERVICES - [facility] CHLORIDE 100 98 - 107 mmol/L 11/12/2017 10:27 AM CDT [employer] LAB[facility]ATORY SERVICES - [facility] CO2 29 22 - 29 mmol/L 11/12/2017 10:27 AM CDT [employer] LABORATORY SERVICES - [facility] CALCIUM 9.3 8.6 - 10.2 mg/dL 11/12/2017 10:27 AM [facility] [employer] [facility] BUN 16 8 - 23 mg/dL 11/12/2017 10:27 AM [facility] [employer] [facility] CREATININE 1.10 0.67 - 1.17 mg/dL 11/12/2017 10:27 AM [facility] [employer] LABORATORY [facility] Comment: The GFR result is not clinically significant on patients <18 or >70 years of age. GLUCOSE 96 74 - 99 mg/dL 11/12/2017 10:27 AM [facility] [employer] LABORATORY [facility] TOTAL PROTEIN 6.6(L) 6.7 - 8.6 g/dL 11/12/2017 10:27 AM [facility] [employer] [facility] - . [facility] ALBUMIN 3.6 3.5 - 5.2 g/dL 11/12/2017 10:27 AM [facility] [employer] [facility] BILIRUBIN TOTAL 0.2 0.2 - 1.1 mg/dL 11/12/2017 10:27 AM [facility] [employer] [facility] ALKALINE PHOSPHATASE 62 40 - 129 U/L 11/12/2017 10:27 AM [employer] [facility] AST 12 <41 U/L 11/12/2017 10:27 AM [employer] [facility] ALT 12 <42 U/L 11/12/2017 10:27 AM [facility] [employer] [facility] GFR >60 mL/min/1.7 3 sq meter 11/12/2017 10:27 AM [facility] [employer] [facility] Comment: eGFR has not been validated for [...] result. GFR, >60 mL/min/1.7 3 sq meter 11/12/2017 10:27 AM [facility] [employer] [facility] ANION GAP 12 8 - 16 mmol/L 11/12/2017 10:27 AM CDT [facility] LABORATORY [facility] Blood Venipuncture / Unknown 11/12/2017 6:24 AM CDT 11/12/2017 8:34 AM CDT Narrative [facility] LABORATORY [facility] - 11/12/2017 10:27 AM CDT Samples containing indocyanine green cause interferences on Total and/or Direct Bilirubin and must not be measured. Anthony Solano MD CHEMISTRY ORDERABLES Final R esult [facility] CLIA# [id number] [address] [place] [address] documented in this encounter Visit Diagnoses Diagnosis Encounter for general adult medical examination without abnormal findings Routine general medical examination at a health care facility documented in this encounter
--- OUTSIDE RECORDS SUMMARY | 2025-02-14 11:29 | XMS_ITS ---
Author Name Auto Generated, Auto Generated Organization [employer] [facility] ices Address [address] [place] [address] Phone [phone] Care Team Providers Care Logistics Clerk Name Role Phone Anthony Solano Unavailable [phone] Functional Status No Results Mental Status No Results Allergies and Intolerances Name Onset Date Reaction Severity GALINA Inhibitors (Allergy) WedOct 28 12:10:00 EDT 2017 penicillins (Allergy) WedOct 27 17:05:00 EDT 20 18 Medications Medication Directions Start Date End Date Tylenol 325 mg tablet 2 tabs TABLET Oral PRN Every 4 Hours WedNov 18 01:00:00 EDT 2017November 24 01:00:00 EDT 2017 HYDROcodone 5 mg-acetaminophen 325 mg tablet 1 tab TABLET Oral PRN Every 6 Hours pain WedNov 10 13:25:00 EDT 2017November 23 18:19:00 EDT 2017 mirtazapine 45 mg tablet 45 mg TABLET Or al 1 Time Daily WedNov 10 01:00:00 EDT 2017November 24 01:00:00 EDT 2017 aspirin 81 mg chewable tablet 81 mg TABLET, CHEWABLE Oral 1 Time Daily WedNov 11 01:00:00 EDT 2017November 24 01:00:00 EDT 2017 HYDROcodone 5 mg-acetaminophen 325 mg tablet 1 tab Oral PRN Every 6 Hours pain WedNovember 23 18:15:00 EDT 2017November 24 01:00:00 EDT 2017 mirtazapine 30 mg tablet 30mg TABLET Ora l 1 Time Daily WedNov 08 15:55:00 EDT 2017Nov 10 15:35:00 EDT 2017 water (bulk) liquid 100mL LIQUID (ML) G- tube 3 Times Daily 100mL flush Q shift WedNov 03 17:30:00 ED2017November 24 01:00:00 ED2017 lidocaine 5 % topical patch 1 patch ADHE SIVE PATCH, MEDICATED Topical PRN 1 Time Daily WedNov 02 12:30:00 ED2017November 24 01:00:00 ED2017 TUBErsol 5 tub. unit/0.1 mL intradermal injection solution Read Results VIAL (ML) Other 1 Time Weekly for 2 Weeks Read results between 48-72 hours after 1st and 2nd 1 week apart. If positive do chest x-ray to rule out active disease. WedOct 30 13:00:00 ED2017 Sat Nov 13 12:59:00 ED2017 TUBErsol 5 tub. unit/0.1 mL intradermal injection solution 0.1 ml VIAL (ML) Intradermal 1 Time Weekly for 2 Weeks (PPD) 1st injection upon admission. Read between 48 and 72 hours and give 2nd injection 1 week after the 1st if result is negative. If positive result, proceed with chest x-ray to rule out active disease. WedOct 28 13:00:00 2017Nov 11 12:59:00 2017 water (bulk) liquid 200ml LIQUID (ML) G- tube 4 Times Daily flush gtube with 200 ml of water QID. WedOct 28 01:00:00 2017Nov 03 17:35:00 ED2017 mirtazapine 45 mg tablet 45mg TABLET Ora l 1 Time Daily WedOct 28 21:00:00 2017 16 16:07:00 ED2017 Calcium 600 + D(3) 600 mg (1,500 mg)-400 unit tablet 1 tab TABLET Oral 2 Times Daily WedOct 28 21:00:00 2017November 24 01:00:00 2017 heparin lock flush (porcine) 10 unit/mL intravenous syringe 5 ml SYRINGE (ML) Intravenous 2 Times Daily SASH and once in the evening WedOct 28 19:00:00 2017Oct 29 14:37:00 2017 sodium chloride 0.9 % injection syringe 10 ml SYRINGE (ML) Intravenous 2 Times Daily SASH and once in the evening WedOct 28 19:00:00 2017Oct 29 14:37:00 2017 gabapentin 300 mg capsule 300 mg CAPSULE Oral 1 Time Daily WedOct 27 21:00:00 2017November 24 01:00:00 2017 heparin (porcine) 5,000 unit/mL injection syringe 1 ml SYRINGE (ML) Subcutaneous Every 8 Hours WedOct 27 21:00:00 2017Nov 10 15:35:00 2017 tamsulosin 0.4 mg capsule 0.4 mg CAPSULE , EXT RELEASE 24 HR Oral 1 Time Daily WedOct 27 21:00:00 2017November 24 01:00:00 2017 ergocalciferol (vitamin D2) 50,000 unit capsule 50,000 CAPSULE Oral 1 Time Weekly WedOct 29 09:00:00 2017November 24 01:00:00 2017 hydrOXYzine HCl 10 mg tablet 10 mg TABLET Oral 1 Time Daily WedOct 27 21:00:00 2017Nov 03 10:33:00 2017 sodium chloride 0.65 % nasal spray aerosol 1 spray AEROSOL, SPRAY (ML) Intranasal - Both Nostrils PRN WedOct 27 18:00:00 2017November 24 01:00:00 2017 Calcitrate 200 mg (950 mg) tablet 950 mg TABLET Oral 2 Times Daily WedOct 27 21:00:00 2017Oct 28 12:09:00 2017 Zofran 4 mg tablet 4 mg TABLET Oral PRN Every 6 Hours WedOct 27 18:00:00 2017Oct 28 09:03:00 2017 polyethylene glycol 1000 (bulk) powder 17 gm POWDER (GRAM) Oral 1 Time Daily WedOct 28 09:00:00 2017November 23 18:20:00 ED2017 Wellbutrin XL 150 mg 24 hr tablet, extended release 3 tabs TABLET, EXTENDED RELEASE 24 HR Oral 1 Time Daily WedOct 28 09:00:00 2017Oct 27 20:30:00 2017 Colace 100 mg capsule 100 mg CAPSULE Ora l PRN 2 Times Daily WedOct 27 21:00:00 2017November 24 01:00:00 2017 cefTRIAXone 2 gram intravenous piggyback 2 gram IV SOLUTION, PIGGYBACK, BOTTLE (EA) Intravenous 1 Time Daily WedOct 27 21:00:00 2017Oct 27 18:45:00 2017 levothyroxine 100 mcg tablet 100 mcg TABLET Oral 1 Time Daily WedOct 28 07:00:00 2017November 24 01:00:00 2017 metroNIDAZOLE 500 mg tablet 500 mg TABLE T Oral Every 8 Hours WedOct 27 11:00:00 2017Oct 29 14:37:00 2017 lidocaine 5 % topical patch 1 patch ADHE SIVE PATCH, MEDICATED Topical PRN 1 Time Daily WedOct 28 07:00:00 2017Nov 02 12:31:00 2017 Rozerem 8 mg tablet 8 mg TABLET Oral 1 T chan Daily WedOct 27 21:00:00 2017November 24 01:00:00 2017 acetaminophen 325 mg tablet 650 mg TABLE T Oral PRN Every 6 Hours WedOct 27 18:00:00 2017Nov 10 15:35:00 2017 amLODIPine 5 mg tablet 5 mg TABLET Oral 1 Time Daily WedOct 28 09:00:00 2017November 24 01:00:00 2017 bisacodyl 10 mg rectal suppository 10 mg SUPPOSITORY, RECTAL Rectal PRN Every 12 Hours WedOct 27 18:00:00 2017November 24 01:00:00 2017 cefTRIAXone 2 gram intravenous piggyback 2 gram IV SOLUTION, PIGGYBACK, BOTTLE (EA) Intravenous 1 Time Daily WedOct 28 09:00:00 2017Oct 29 14:38:00 2017 heparin lock flush (porcine) 10 unit/mL intravenous syringe 5 ml SYRINGE (ML) Intravenous 1 Time Daily WedOct 27 10:00:00 2017Oct 28 15:29:00 2017 sodium chloride 0.9 % injection syringe 10 ml SYRINGE (ML) Intravenous 1 Time Daily WedOct 27 01:00:00 2017Oct 28 15:29:00 2017 Jevity 1.5 [place] 0.06 gram-1.5 kcal/mL oral liquid 200 ml LIQUID (ML) Oral 1 Time Daily WedOct 27 21:00:00 2017Nov 03 17:36:00 2017 mirtazapine 15 mg tablet 15mg TABLET Ora l 1 Time Daily WedOct 27 21:00:00 2017Oct 27 20:28:00 2017 mirtazapine 15 mg tablet 15mg TABLET Ora l 1 Time Daily WedOct 27 21:00:00 EDT 2017Oct 28 12:01:00 EDT 2017 Wellbutrin XL 150 mg 24 hr tablet, extended release 3 tabs TABLET, EXTENDED RELEASE 24 HR Oral 1 Time Daily WedOct 28 09:00:00 EDT 2017November 24 01:00:00 EDT 2017 hydrOXYzine HCl 10 mg tablet 10 mg TABLET Oral 1 Time Daily chronic pruritus WedNov 03 10:30:00 EDT 2017November 24 01:00:00 EDT 2017 polyethylene glycol 3350 17 gram/dose oral powder 17gms Oral 1 Time Daily WedNovember 23 18:20:00 EDT 2017November 24 01:00:00 EDT 2017 Problems Active Concerns * 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* Code: * Start Date: WedOct 27 00:00:00 EDT 2017 * End Date: * Text: * Gastrostomy status* Code: * Start Date: WedOct 27 00:00:00 EDT 2017 * End Date: * Text: * Pneumonia, unspecified organism* Code: * Start Date: WedOct 27 00:00:00 EDT 2017 * End Date: * Text: * Sepsis due to Methicillin susceptible Staphylococcus aureus* Code: * Start Date: WedOct 27 00:00:00 EDT 2017 * End Date: * Text: * Abscess of liver* Code: * Start Date: WedOct 27 00:00:00 EDT 2017 * End Date: * Text: * Angioneurotic edema, subsequent encounter* Code: * Start Date: WedOct 27 00:00:00 EDT 2017 * End Date: * Text: * Adverse effect of [id number] inhibitors, subsequent encounter* Code: * Start Date: WedOct 27 00:00:00 EDT 2017 * End Date: * Text: * Dysphagia, unspecified* Code: * Start Date: WedOct 27 00:00:00 EDT 2017 * End Date: * Text: * Essential (primary) hypertension* Code: * Start Date: WedOct 27 00:00:00 EDT 2017 * End Date: * Text: * Constipation, unspecified* Code: * Start Date: WedOct 27 00:00:00 EDT 2017 * End Date: * Text: * Hypothyroidism, unspecified* Code: * Start Date: WedOct 27 00:00:00 EDT 2018 * End Date: * Text: * Retention of urine, unspecified* Code: * Start Date: WedOct 27 00:00:00 EDT 2018 * End Date: * Text: * Major depressive disorder, single episode, unspecified* Code: * Start Date: WedOct 27 00:00:00 EDT 2018 * End Date: * Text: * Insomnia, unspecified* Code: * Start Date: WedOct 27 00:00:00 EDT 2017 * End Date: * Text: * Other subluxation of left shoulder joint, subsequent encounter* Code: * Start Date: WedOct 27 00:00:00 EDT 2017 * End Date: * Text: * Unspecified osteoarthritis, unspecified site* Code: * Start Date: WedOct 27 00:00:00 EDT 2017 * End Date: * Text: * Vitamin D deficiency, unspecified* Code: * Start Date: WedOct 27 00:00:00 EDT 2017 * End Date: * Text: * Hypokalemia* Code: * Start Date: WedOct 27 00:00:00 EDT 2017 * End Date: * Text: * Pruritus, unspecified* Code: * Start Date: WedOct 27 00:00:00 EDT 2018 * End Date: * Text: Reason for Referral Past Medical History
--- OUTSIDE RECORDS SUMMARY | 2025-02-14 11:29 | XMS_ITS | Referral Summary ---
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 10/13 Overview (10/13/2020): Added automatically from request for surgery [id number] Impaired mobility and ADLs 06/04/2018 Spasticity 04/29/2018 Assessment & Plan (09/03/2021 1:49 PM OFFICE TECHNICIAN): 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 [...] 0 Assessment & Plan (06/04/2021 2:38 PM OFFICE TECHNICIAN): 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 [...] 0 Assessment & Plan (08/21/2020 2:24 PM OFFICE TECHNICIAN): 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 [...] 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 Social History Tobacco Use Types Packs/Day Years [...] on file Legal Sex Male 2:53 AM OFFICE TECHNICIAN Gender Identity Male 09/03/2020 3:03 PM OFFICE TECHNICIAN Sexual Orientation Not on file Last Filed Vital Signs Vital Sign Reading Time Taken Comments Blood Pressure 134/78 09/03/2021 1:19 PM OFFICE TECHNICIAN Pulse 77 09/03/2021 1:19 PM OFFICE TECHNICIAN Temperature 36.2 C (97.1 F) 05/06/2021 8:31 AM CDT Respiratory Rate 16 10/30/2020 11:10 AM CDT Oxygen Saturation 100% 10/30/2020 11:10 AM CDT Inhaled Oxygen Concentration - - Weight 93.4 kg (206 lb) 09/03/2021 1:19 PM OFFICE TECHNICIAN Height 177.8 cm (5' 10) 09/03/2021 1:19 PM OFFICE TECHNICIAN Body Mass Index 29.56 09/03/2021 1:19 PM OFFICE TECHNICIAN Plan of [place] [address] MEDICARE [facility] MEDICARE [facility] MEDICARE Advance Directives For more information, please contact: [phone] Documents on File Type Date Recorded Patient Front End Ui Developer Expl anation ADVANCE DIRECTIVE 09/21/2017 12:00 AM Care Teams Technician Support Engineer Relationship Specialty Start Date End Date Natanael Tai MD [id number] [facility] [address] [place] [address] PCP - General 05/07/16 Villa Garcia MD [address] [facility] [address] [place] [address] Surgeon Ophthalmology 10/30/20
[2025-02-14 13:52] VITALS: BP 112/66; PULSE 69; TEMP 36.7; O2SAT 96
--- NOTE | 2025-02-14 14:04 | ED_ITS ---
HPI - Fall General Chief Complaint: Fall <Ibisgely Conti APRN - Last Filed: 02/14/25 15:45> Stated Complaint: fall, R leg injury? <Ibisgely Conti APRN - Last Filed: 02/14/25 15:45> Time Seen by Provider: 02/14/25 13:50 <Ibis Conti APRN - Last Filed: 02/14/25 15:45> Focused HPI: Patient is a 79-year-old male who presents to the ER after sustaining a fall. He reports he had a stroke approximately 8 years ago in uses a walker to ambulate now. Patient reports he lost his balance earlier, fell and hit the back of his head and back on a couch. He denies any loss of consciousness. Patient reports he is not on blood thinners. He endorses right shoulder and right knee/femur pain. Patient endorses a history of high blood pressure, hyperlipidemia, and thyroid abnormalities. GENERAL: Well-appearing, well-nourished, and in no acute distress. HEAD: Normocephalic, atraumatic. CHEST: Clear to auscultation. ?No respiratory distress. HEART: Regular rate and rhythm.? NEURO: ?Alert and oriented x3. Patient screened in triage and initial orders placed.? ?Additional care and disposition to be based upon?diagnostic testing and treatment. <Ibisgely Conti APRN - Last Filed: 02/14/25 15:45> History of Present Illness HPI Narrative: 79-year-old male with history of CVA and residual left-sided deficits presents emergency department with at bedside for ground level mechanical fall that occurred this morning. Patient states he was ambulating to his computer, dropped his cane and attempted to step over his cane, lost his balance and tried to catch himself on his wheelchair that was not locked and fell to the ground. He states he hit the back of his head on the couch. He did not lose consciousness. He is not anticoagulated. He is reporting mild pain to the back of his head, right shoulder, right knee and soreness of his hips and low back. He denies saddle anesthesia, bowel or bladder changes, chest wall pain, back pain, other injuries acquired. <Michelle Collado PA-C - Last Filed: 02/15/25 02:58> Related Data Home Medications: Home Medications ?Medication ?Instructions ?Recorded ?Confirmed ?Last Taken ?Type aripiprazole 2 mg tablet 2 mg PO HS 11/14/22 02/15/25 Unknown History atorvastatin 10 mg tablet 10 mg PO HS 11/14/22 02/15/25 Unknown History bupropion HCl 150 mg 24 hr tablet, 150 mg PO DAILY 11/14/22 02/15/25 02/14/25 History extended release bupropion HCl 300 mg 24 hr tablet, 300 mg PO DAILY 11/14/22 02/15/25 02/14/25 History extended release ergocalciferol (vitamin D2) 1,250 1,250 mcg PO WEEKLY 11/14/22 02/15/25 Unknown History mcg (50,000 unit) capsule levothyroxine 100 mcg tablet 125 mcg PO DAILY 11/14/22 02/15/25 02/14/25 History mirtazapine 45 mg tablet 45 mg PO HS 11/14/22 02/15/25 Unknown History tamsulosin 0.4 mg capsule 0.4 mg PO HS 11/14/22 02/15/25 Unknown History polyethylene glycol 3350 17 17 g PO DAILY PRN constipation 11/08/23 02/15/25 Unknown History gram/dose oral powder (Miralax) aspirin 81 mg tablet 81 mg PO DAILY 02/15/25 02/15/25 02/14/25 History cyanocobalamin (vitamin B-12) 500 mcg PO DAILY 02/15/25 02/15/25 02/14/25 History 1,000 mcg tablet (Vitamin B-12) melatonin 5 mg capsule 5 mg PO HS 02/15/25 02/15/25 02/14/25 History <Ibis Conti, SAP BW DEVELOPER - Last Filed: 02/14/25 15:45> Allergies/Adverse Reactions: Allergies Allergy/AdvReac Type Severity Reaction Status Date / Time penicillin V Allergy Unknown Unknown Verified 02/15/25 02:47 risperidone (From Risperdal) Allergy Unknown Unknown Verified 02/15/25 02:47 <Ibis Conti, SAP BW DEVELOPER - Last Filed: 02/14/25 15:45> Review of Systems 2 Review of Systems: All systems reviewed & are unremarkable except as noted in HPI and below <Michelle Collado PA-C - Last Filed: 02/15/25 02:58> [facility] Past Medical History Medical History: Medical History Depression History of stroke <Ibis Conti, SAP BW DEVELOPER - Last Filed: 02/14/25 15:45> Surgical History Surgical History: Surgical History 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 <Ibis Conti APRN - Last Filed: 02/14/25 15:45> Family History Family History: Family History (Updated 02/15/25 @ 02:33 by Chantelle Swain RN) Father Aortic aneurysm Mother COPD (chronic obstructive pulmonary disease) <Ibis Conti APRN - Last Filed: 02/14/25 15:45> Social History Social History: Social History Smoking status: Never smoker Alcohol intake: current Alcohol use details: occasional Substance use type: does not use Do You Feel Safe in your Home?: Yes Lack of Transportation: No Lack of Food: Never True Current Housing: I Have Housing Concerned About Future Housing: No Difficulty Paying Gas/Electric Bills: No Difficulty Paying for Meds: No Currently Unemployed: No Education: Master's Degree or Higher Difficulty w/ Childcare or Family Care: No Living arrangements: with family Occupation/Education: retired Spiritual care concerns: No <Ibis Conti, LUCILA - Last Filed: 02/14/25 15:45> Exam 2 Narrative: GENERAL: Well-appearing, well-nourished, and in no acute distress. HEAD: Normocephalic, atraumatic. EYES: PERRLA and EOMI. ENT: Nares clear, no rhinorrhea or epistaxis. Mucous membranes moist. NECK: No midline cervical spinous tenderness, crepitus, step-offs or deformities BACK: Mild tenderness to the lumbar spine with overlying superficial road burn, no crepitus, step-offs or deformities. No tenderness to thoracic spine. CHEST: Clear to auscultation. No respiratory distress. No tenderness to chest wall, no crepitus or ecchymosis HEART: Regular rate and rhythm. No murmur heard. Normal peripheral pulses. ABDOMEN: Soft, nontender, nondistended, normal active bowel sounds. EXTREMITIES: RUE: Mild tenderness to the right glenohumeral joint with no obvious deformity, ecchymosis, edema, Limited abduction and internal rotation which is reportedly chronic. No tenderness remainder of upper extremities. Radial pulses 2+. Right radial, median and ulnar nerves intact. Minimal tenderness to bilateral hips with no obvious deformity, mild tenderness to the right knee with no deformity or significant edema. Full active and passive range of motion of bilateral hips and knees. DP pulses 2+. Sensation intact. SKIN: Warm, dry, no rash. NEURO: No focal deficits. Alert and oriented x3. No saddle anesthesia. Chronic weakness of left upper and lower extremity which is unchanged from baseline. Sensation diminished to the left upper lower extremity which is reportedly chronic. Left-sided facial droop which is reportedly chronic, otherwise cranial nerves 2-12 are intact. Sensation intact and Strength 5/5 in right upper and lower extremity. <Michelle Collado PA-C - Last Filed: 02/15/25 02:58> Course WELFARE ELIGIBILITY INTERVIEWER/PA Physician Supervision PA discussed this case with me. It appears there are concerns that he has had recurrent symptoms that could represent TIAs , which at baseline increases his risk for future CVA and he also has other risk factors for this. Recommended admission for furhter work up and risk factor modification/assessment. I am made aware that this patient was in fact being admitted for this and therefore was available for consultation while patient was in the emergency department however did not personally assess /evaluate them. <Emilie Joshi MD - Last Filed: 02/15/25 18:07> Vital Signs Vital signs: Vital Signs Temperature 97.6 F 02/14/25 11:24 Pulse Rate 70 02/14/25 11:24 Respiratory Rate 16 02/14/25 11:24 Blood Pressure 112/47 L 02/14/25 11:24 Pulse Oximetry 94 02/14/25 11:24 Oxygen Delivery Room Air 02/14/25 11:24 Temperature 97.3 F L 02/15/25 16:02 Pulse Rate 60 02/15/25 16:02 Respiratory Rate 18 02/15/25 16:02 Blood Pressure 151/71 H 02/15/25 16:02 Pulse Oximetry 94 02/15/25 16:02 Oxygen Delivery Room Air 02/15/25 08:00 <Ibis Conti APRN - Last Filed: 02/14/25 15:45> Vital Signs Temperature 97.6 F 02/14/25 11:24 Pulse Rate 70 02/14/25 11:24 Respiratory Rate 16 02/14/25 11:24 Blood Pressure 112/47 L 02/14/25 11:24 Pulse Oximetry 94 02/14/25 11:24 Oxygen Delivery Room Air 02/14/25 11:24 Temperature 97.3 F L 02/15/25 16:02 Pulse Rate 60 02/15/25 16:02 Respiratory Rate 18 02/15/25 16:02 Blood Pressure 151/71 H 02/15/25 16:02 Pulse Oximetry 94 02/15/25 16:02 Oxygen Delivery Room Air 02/15/25 08:00 <Michelle Collado PA-C - Last Filed: 02/15/25 02:58> Vital Signs Temperature 97.6 F 02/14/25 11:24 Pulse Rate 70 02/14/25 11:24 Respiratory Rate 16 02/14/25 11:24 Blood Pressure 112/47 L 02/14/25 11:24 Pulse Oximetry 94 02/14/25 11:24 Oxygen Delivery Room Air 02/14/25 11:24 Temperature 97.3 F L 02/15/25 16:02 Pulse Rate 60 02/15/25 16:02 Respiratory Rate 18 02/15/25 16:02 Blood Pressure 151/71 H 02/15/25 16:02 Pulse Oximetry 94 02/15/25 16:02 Oxygen Delivery Room Air 02/15/25 08:00 <Emilie Joshi MD - Last Filed: 02/15/25 18:07> MDM - Fall MDM Narrative Medical decision making narrative: 79-year-old male history of CVA and residual left-sided deficits presents to the emergency department for ground level mechanical fall that occurred this morning. See HPI for further history. Vitals are stable. Exam is significant for the above. CT brain shows no evidence for acute intracranial hemorrhage or calvarial fracture. CT cervical spine with severe cervical spondylosis, no acute fracture traumatic malalignment. X-ray the right knee shows no fracture dislocations, findings consistent with moderate osteoarthritis. X-ray bilateral hips and pelvis shows mild left and [id number] right hip osteoarthritis with no acute osseous abnormality. X-ray of the right shoulder shows no acute fractures or dislocations, findings consistent with moderate osteoarthritis. CT lumbar spine shows 18? of thoracolumbar dextroscoliosis with meed-az-uffzlely spondylosis, no acute osseous abnormality. Patient and family updated on results. On re-evaluation the family and patient are providing further history. States the patient was having right-sided leg ?stiffness?, weakness and ?tingling? that caused him to fall. Patient states he was having difficulty moving his right leg. The states this started around 8:00 a.m. this morning and self resolved around 9:30 a.m States the patient had a similar episode about 2-3 weeks ago. Patient states he has not had any episodes since his symptoms resolved at 9:30 a.m.. Patient and family are concerned for possible TIA. Will add on lab work, CTA brain and carotid. Lab work shows no leukocytosis. Hemoglobin is 12.4, no prior for comparison. Chemistries are unremarkable. Urinalysis is unremarkable. Chest x-ray shows small lung volumes with mild linear discoid atelectasis in the right mid and left lower lung zones. CTA brain carotid shows small amount of atherosclerotic plaque with 0% stenosis of the right and left carotid bulbs relative to normal distal artery lumen diameter and no hemodynamic significant stenosis, thrombosis or aneurysm within the cerebral arteries. Patient and at bedside updated on results. Discussed case with hospitalist, Dr. Huynh, who agrees to admission and MRI of the brain in the morning for TIA workup. Advises admission to [facility]. <Michelle Collado PA-C - Last Filed: 02/15/25 02:58> Lab Data Result diagrams: 02/14/25 21:28 02/14/25 21:28 <Ibis Conti APRN - Last Filed: 02/14/25 15:45> Labs: Lab Results 02/14/25 02/14/25 Range/Units 21:28 21:38 WBC 7.5 (4.5-10.0) K/mm3 RBC 3.82 L (4.6-6.20) M/mm3 Hgb 12.4 L (14.0-18.0) g/dL Hct 37.2 L (42.0-52.0) % MCV 97.4 (80-100) fl MCH 32.5 (26-34) pg MCHC 33.3 (32-36) g/dl RDW 12.2 (11.5-14.5) % Plt Count 212 (150-375) k/mm3 MPV 8.3 (7.4-10.4) fl Immature Gran % (Auto) 0.4 (0-0.5) % Neut % (Auto) 52.2 (45.5-73.1) % Lymph % (Auto) 32.7 (18.3-44.2) % [place] % (Auto) 7.9 (2.6-8.5) % Eos % (Auto) 6.1 H (0-4.4) % Baso % (Auto) 0.7 (0.2-1.2) % Lymph # (Auto) 2.45 (0.9-3.2) K/mm3 [place] # (Auto) 0.6 (0.1-0.6) K/mm3 Eos # (Auto) 0.5 H (0-0.3) K/mm3 Baso # (Auto) 0.1 (0.0-0.1) K/mm3 Abs Immat Gran (auto) 0.03 (0.00-0.031) K/mm3 Absolute Neuts (auto) 3.9 (1.3-6.7) K/mm3 Absolute Nucleated RBC 0.000 (0.0-0.012) K/mm3 Nucleated RBC % 0.0 (0.0-0.2) % PT 13.9 (11.1-14.7) Seconds INR 1.1 APTT 27.3 (22.3-36.8) Seconds Sodium 137 (137-145) mmol/L Potassium 3.9 (3.4-5.0) mmol/L Chloride 103 (98-107) mmol/L Carbon Dioxide 26 (22-30) mmol/L Anion Gap 8 (4-12) mmol/L BUN 19 (9-20) mg/dL Creatinine 1.11 (0.7-1.3) mg/dL Estim Creat Clear Calc 56 ml/min Estimated GFR > 60 (59 - ) Glucose 92 (65-110) mg/dL Calcium 9.0 (8.4-10.2) mg/dL Total Bilirubin 0.4 (0.2-1.3) mg/dL AST 22 (17-59) U/L ALT 18 (6-50) U/L Alkaline Phosphatase 78 (38-126) U/L Total Protein 7.0 (6.3-8.2) g/dL Albumin 4.0 (3.5-5.1) g/dL Urine Color Yellow (Yellow) Urine Appearance Clear (Clear) Urine pH 5.5 (5.0-9.0) Ur Specific [place] 1.016 (1.001-1.035) Urine Protein Negative (Negative) mg/dL Urine Glucose (UA) Negative (Negative) mg/dL Urine Ketones Negative (Negative) mg/dL Ur Blood (Man) Negative (Negative) Urine Nitrate Negative (Negative) Urine Bilirubin Negative (Negative) Urine Urobilinogen 1.0 (<2.0) mg/dL Leukocyte Esterase Rfl Negative (Negative) CAESAR/UL <Ibis Conti, SAP BW DEVELOPER - Last Filed: 02/14/25 15:45> Lab Results 02/14/25 02/14/25 Range/Units 21:28 21:38 WBC 7.5 (4.5-10.0) K/mm3 RBC 3.82 L (4.6-6.20) M/mm3 Hgb 12.4 L (14.0-18.0) g/dL Hct 37.2 L (42.0-52.0) % MCV 97.4 (80-100) fl MCH 32.5 (26-34) pg MCHC 33.3 (32-36) g/dl RDW 12.2 (11.5-14.5) % Plt Count 212 (150-375) k/mm3 MPV 8.3 (7.4-10.4) fl Immature Gran % (Auto) 0.4 (0-0.5) % Neut % (Auto) 52.2 (45.5-73.1) % Lymph % (Auto) 32.7 (18.3-44.2) % [place] % (Auto) 7.9 (2.6-8.5) % Eos % (Auto) 6.1 H (0-4.4) % Baso % (Auto) 0.7 (0.2-1.2) % Lymph # (Auto) 2.45 (0.9-3.2) K/mm3 [place] # (Auto) 0.6 (0.1-0.6) K/mm3 Eos # (Auto) 0.5 H (0-0.3) K/mm3 Baso # (Auto) 0.1 (0.0-0.1) K/mm3 Abs Immat Gran (auto) 0.03 (0.00-0.031) K/mm3 Absolute Neuts (auto) 3.9 (1.3-6.7) K/mm3 Absolute Nucleated RBC 0.000 (0.0-0.012) K/mm3 Nucleated RBC % 0.0 (0.0-0.2) % PT 13.9 (11.1-14.7) Seconds INR 1.1 APTT 27.3 (22.3-36.8) Seconds Sodium 137 (137-145) mmol/L Potassium 3.9 (3.4-5.0) mmol/L Chloride 103 (98-107) mmol/L Carbon Dioxide 26 (22-30) mmol/L Anion Gap 8 (4-12) mmol/L BUN 19 (9-20) mg/dL Creatinine 1.11 (0.7-1.3) mg/dL Estim Creat Clear Calc 56 ml/min Estimated GFR > 60 (59 - ) Glucose 92 (65-110) mg/dL Calcium 9.0 (8.4-10.2) mg/dL Total Bilirubin 0.4 (0.2-1.3) mg/dL AST 22 (17-59) U/L ALT 18 (6-50) U/L Alkaline Phosphatase 78 (38-126) U/L Total Protein 7.0 (6.3-8.2) g/dL Albumin 4.0 (3.5-5.1) g/dL Urine Color Yellow (Yellow) Urine Appearance Clear (Clear) Urine pH 5.5 (5.0-9.0) Ur Specific [place] 1.016 (1.001-1.035) Urine Protein Negative (Negative) mg/dL Urine Glucose (UA) Negative (Negative) mg/dL Urine Ketones Negative (Negative) mg/dL Ur Blood (Man) Negative (Negative) Urine Nitrate Negative (Negative) Urine Bilirubin Negative (Negative) Urine Urobilinogen 1.0 (<2.0) mg/dL Leukocyte Esterase Rfl Negative (Negative) CAESAR/UL <Michelle Collado PA-C - Last Filed: 02/15/25 02:58> Lab Results 02/14/25 02/14/25 Range/Units 21:28 21:38 WBC 7.5 (4.5-10.0) K/mm3 RBC 3.82 L (4.6-6.20) M/mm3 Hgb 12.4 L (14.0-18.0) g/dL Hct 37.2 L (42.0-52.0) % MCV 97.4 (80-100) fl MCH 32.5 (26-34) pg MCHC 33.3 (32-36) g/dl RDW 12.2 (11.5-14.5) % Plt Count 212 (150-375) k/mm3 MPV 8.3 (7.4-10.4) fl Immature Gran % (Auto) 0.4 (0-0.5) % Neut % (Auto) 52.2 (45.5-73.1) % Lymph % (Auto) 32.7 (18.3-44.2) % [place] % (Auto) 7.9 (2.6-8.5) % Eos % (Auto) 6.1 H (0-4.4) % Baso % (Auto) 0.7 (0.2-1.2) % Lymph # (Auto) 2.45 (0.9-3.2) K/mm3 [place] # (Auto) 0.6 (0.1-0.6) K/mm3 Eos # (Auto) 0.5 H (0-0.3) K/mm3 Baso # (Auto) 0.1 (0.0-0.1) K/mm3 Abs Immat Gran (auto) 0.03 (0.00-0.031) K/mm3 Absolute Neuts (auto) 3.9 (1.3-6.7) K/mm3 Absolute Nucleated RBC 0.000 (0.0-0.012) K/mm3 Nucleated RBC % 0.0 (0.0-0.2) % PT 13.9 (11.1-14.7) Seconds INR 1.1 APTT 27.3 (22.3-36.8) Seconds Sodium 137 (137-145) mmol/L Potassium 3.9 (3.4-5.0) mmol/L Chloride 103 (98-107) mmol/L Carbon Dioxide 26 (22-30) mmol/L Anion Gap 8 (4-12) mmol/L BUN 19 (9-20) mg/dL Creatinine 1.11 (0.7-1.3) mg/dL Estim Creat Clear Calc 56 ml/min Estimated GFR > 60 (59 - ) Glucose 92 (65-110) mg/dL Calcium 9.0 (8.4-10.2) mg/dL Total Bilirubin 0.4 (0.2-1.3) mg/dL AST 22 (17-59) U/L ALT 18 (6-50) U/L Alkaline Phosphatase 78 (38-126) U/L Total Protein 7.0 (6.3-8.2) g/dL Albumin 4.0 (3.5-5.1) g/dL Urine Color Yellow (Yellow) Urine Appearance Clear (Clear) Urine pH 5.5 (5.0-9.0) Ur Specific [place] 1.016 (1.001-1.035) Urine Protein Negative (Negative) mg/dL Urine Glucose (UA) Negative (Negative) mg/dL Urine Ketones Negative (Negative) mg/dL Ur Blood (Man) Negative (Negative) Urine Nitrate Negative (Negative) Urine Bilirubin Negative (Negative) Urine Urobilinogen 1.0 (<2.0) mg/dL Leukocyte Esterase Rfl Negative (Negative) CAESAR/UL <Emilie Joshi MD - Last Filed: 02/15/25 18:07> Discharge Plan Discharge Clinical Impression: Transient right leg weakness, Dextroscoliosis Fall Qualifiers: Encounter type: initial encounter Qualified Code(s): W19.XXXA - Unspecified fall, initial encounter <Ibis Conti APRN - Last Filed: 02/14/25 15:45> Patient Disposition: Still a Patient <Ibis Conti APRN - Last Filed: 02/14/25 15:45> Condition: Stable <Ibis Conti, SAP BW DEVELOPER - Last Filed: 02/14/25 15:45>
--- OUTSIDE RECORDS SUMMARY | 2025-02-14 18:22 | XMS_ITS ---
Author Name Auto Generated, Auto Generated Organization [email or web address] Address [address] [place] [address] Phone [phone] Care Team Providers Care Lunchroom Operator Name Role Phone Anthony Solano Unavailable Functional Status Mental Status Allergies and Intolerances Medications Problems Reason for Referral Past Medical History
--- OUTSIDE RECORDS SUMMARY | 2025-02-14 18:22 | XMS_ITS ---
Author Name Auto Generated, Auto Generated Organization [facility] Address [address] [place] [address] Phone [phone] Care Team Providers Care Punch Molder Name Role Phone Anthony Solano Unavailable [phone] Functional Status No Results Mental Status No [...] Date: * Text: * Adverse effect of fxlotxmbcql-zjiazykjzw-jcihpt inhibitors, subsequent encounter* Code: * Start Date: [...]
--- OUTSIDE RECORDS SUMMARY | 2025-02-14 18:22 | XMS_ITS | Encounter Summary ---
Author Organization [facility] [email or web address] Address [address] [place] [address] Care Team Providers Care Corn Grinder Name Role Phone Unavailable Primary Care Provider Unavailabl e Encounter Details Date Type Department Care Team (Late st Contact Info) Description 10/29/2017 Lab Requisition [facility] [address] [place] [address] [place] [address] Anthony Solano MD [address] [place] [address] Hypothyroidism; Vitamin D deficiency; Bacterial infection Social History Tobacco Use Types Packs/Day Years Used Date Smoking Tobacco: Never Assessed Sex and Gender Information Value Date Recorded Sex Assigned at Not on file Legal Sex Male 4:06 AM HOME CARE PROVIDER Gender Identity Not on file Sexual Orientation Not on file documented as of this encounter Plan of Treatment Not on file documented as of this encounter Visit Diagnoses Diagnosis Hypothyroidism Unspecified hypothyroidism Vitamin D deficiency Unspecified vitamin D deficiency Bacterial infection Bacterial infection, unspecified, in conditions classified elsewhere and of unspecified site documented in this encounter
--- OUTSIDE RECORDS SUMMARY | 2025-02-14 18:22 | XMS_ITS | Clinical Summary ---
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 10/13 Overview (10/13/2020): Added automatically from request for surgery [id number] Impaired mobility and ADLs 06/04/2018 Spasticity 04/29/2018 Assessment & Plan (09/03/2021 1:49 PM ELECTRONIC SCANNER OPERATOR): 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 [...] 0 Assessment & Plan (06/04/2021 2:38 PM ELECTRONIC SCANNER OPERATOR): 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 [...] 0 Assessment & Plan (08/21/2020 2:24 PM ELECTRONIC SCANNER OPERATOR): 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 [...] on file Legal Sex Male 2:53 AM ELECTRONIC SCANNER OPERATOR Gender Identity Male 09/03/2020 3:03 PM ELECTRONIC SCANNER OPERATOR Sexual Orientation Not on file Obstetrics History Last Filed Vital Signs Vital Sign Reading Time Taken Comments Blood Pressure 134/78 09/03/2021 1:19 PM ELECTRONIC SCANNER OPERATOR Pulse 77 09/03/2021 1:19 PM ELECTRONIC SCANNER OPERATOR Temperature 36.2 C (97.1 F) 05/06/2021 8:31 AM CDT Respiratory Rate 16 10/30/2020 11:10 AM CDT Oxygen Saturation 100% 10/30/2020 11:10 AM CDT Inhaled Oxygen Concentration - - Weight 93.4 kg (206 lb) 09/03/2021 1:19 PM ELECTRONIC SCANNER OPERATOR Height 177.8 cm (5' 10) 09/03/2021 1:19 PM ELECTRONIC SCANNER OPERATOR Body Mass Index 29.56 09/03/2021 1:19 PM ELECTRONIC SCANNER OPERATOR Plan of Treatment Not on file Insurance [facility]ICARE [facility] MEDICARE [facility] [place] [address] MEDICARE Advance Directives For more information, please contact: [phone] Documents on File Type Date Recorded Patient Physician Representative Expl anation ADVANCE DIRECTIVE 09/21/2017 12:00 AM Care Teams It Audit Manager Relationship Specialty Start Date End Date Natanael Tai MD [address] [place] [address] PCP - General 05/07/16 Villa Garcia MD [address] [place] [address] Surgeon Ophthalmology 10/30/20
--- OUTSIDE RECORDS SUMMARY | 2025-02-14 18:22 | XMS_ITS | Encounter Summary ---
Author Organization [facility] Address [address] [facility] [place] [address] Care Team Providers Care Face Worker Name Role Phone Natanael Tai MD Primary Care Provider [phone] Gunnar Greenfield MD Unavailable Natanael Tai MD Unavailable Christoph Jaffe MD Unavailable Brando Hitchcock MD Unavailable Genaro Santiago MD Unavailable Dat Garcia MD Unavailable Randall Harrison MD Unavailable Ivan Zimmerman MD Unavailable [phone] Delmar Mayers MD Unavailable [phone] Louisa Fuller MD Unavailable [phone] Encounter Details Date Type Department Care Team (Late st Contact Info) Description 02/04/2025 Results Follow-Up [facility] Medical [facility] - Internal Medicine [address] [facility] [address] [place] [phone] Natanael Tai MD [address] [place] [address] [place] [phone] Social History Tobacco Use Types Packs/Day Years Used Date Smoking Tobacco: Never Smokeless Tobacco: Never Alcohol Use Standard Drinks/Week Comments Yes 0 (1 standard drink = 0.6 oz pur e alcohol) 1-2 per month PHQ-2 Answer Date Recorded Patient Health Questionnaire-2 Score 0 12/31/2024 Sex and Gender Information Value Date Recorded Sex Assigned at Not on file Legal Sex Male 6:53 AM REBAR FABRICATOR Gender Identity Not on file Sexual Orientation Not on file 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 Answer Date of Assessment Author No 09/14/2019 3:03 PM REBAR FABRICATOR Andres, Salud Deleon RN * Is person blind or have serious difficulty seeing? Answer Date of Assessment Author No 09/14/2019 3:03 PM REBAR FABRICATOR Andres, Salud Deleon RN * Does person have serious difficulty walking/climbing stairs? Answer Date of Assessment Author Yes 09/14/2019 3:03 PM REBAR FABRICATOR Andres, Salud Deleon RN * Does person have difficulty dressing/bathing? Answer Date of Assessment Author Yes 09/14/2019 3:03 PM REBAR FABRICATOR Andres, Salud Deleon RN * Does person have difficulty doing errands alone? Answer Date of Assessment Author Yes 09/14/2019 3:03 PM REBAR FABRICATOR Andres, Salud Deleon RN documented as of this encounter Mental Status * Does person have difficulty concentrating/remembering/making decisions? Answer Entry Date Author Yes 09/14/2019 3:03 PM REBAR FABRICATOR Andres, Salud Deleon RN documented in [...] Description 04/06/2025 2:00 PM CDT Office Visit [facility] Medical [facility] - Internal Medicine [address] [place] [phone] Natanael Tai MD [address] [place] [phone] 05/08/2025 2:00 PM CDT Office Visit [facility] - Dermatology [address] [place] [address], [place] [phone] Ivan Zimmerman MD [address] [place] [address] [address] [place] [address] documented as of this encounter Goals Goal Patient Goal Type Associated Problems Recent Progress Patient-Stated? Author Blood Pressure < 140/90 Blood Pressure 120/72(2023 10:31 AM REBAR FABRICATOR) No Kasandra An [facility] Lifestyle:Decrea se anxiety / depression / stress [...] 10:10 AM CDT Performed at: 01 - [address] [id number] Hospice Social Worker: Shmuel Deal PhD, Phone: [phone] us Natanael Tai MD LAB - CHEMISTRY ORDERABLES Fi nal Result Performing Organization Address City/State/[facility] Co de Phone Number [facility] INSURANCE BILL [address] [place] [address] documented in this encounter Visit Diagnoses Diagnosis Acquired hypothyroidism- Primary documented in this encounter Care Teams Face Worker Relationship Specialty Start Date End Date Natanael Tai MD [address] [phone] PCP - General Internal Medicine 11/11/11 Natanael Tai MD [address] [facility] [address] [place] [phone] PCP - Attributed-MSSP 12/30/16 Gunnar Greenfield MD [address] [place] [address] Psychiatry 07/05/14 Christoph Jaffe MD [address] [facility] [address] [place] [address] Ophthalmology 01/19/17 Brando Hitchcock MD [address] [facility] [address] [place] [address] Gastroenterology 02/25/18 Genaro Santiago MD [address] [place] [address] Pulmonary Disease 08/01/18 Dat Garcia MD [address] [place] [phone] Ophthalmology 10/10/20 Randall Harrison MD [address] [place] [address] [place] [phone] Dermatology 05/02/21 Ivan Zimmerman MD [address] [place] [address] Dermatology 05/02/21 Delmar Mayers MD [address] [facility] [address] [place] [address] Cardiology 07/02/22 Louisa Fuller MD [address] [place] [address] Dermatology 01/04/23 documented as of this encounter
--- OUTSIDE RECORDS SUMMARY | 2025-02-14 18:22 | XMS_ITS | Encounter Summary ---
Author Organization [employer] Address [address] [place] [address] Care Team Providers Care Pre Owned Sales Manager Name Role Phone Unavailable Primary Care Provider Unavailabl e Encounter Details Date Type Department Care Team (Late st Contact Info) Description 11/12/2017 Lab Requisition [facility] [address] [place] [address] Anthony Solano MD [address] [place] [address] Encounter for general adult medical examination without abnormal findings Social History Tobacco Use Types Packs/Day Years Used Date Smoking Tobacco: Never Assessed Sex and Gender Information Value Date Recorded Sex Assigned at Not on file 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 POTASSIUM 4.0 3.5 - 5.0 mmol/L 11/12/2017 10:27 AM CDT [employer] [facility] - [facility] CHLORIDE 100 98 - 107 mmol/L 11/12/2017 10:27 AM CDT [employer] [facility] - [facility] CO2 29 22 - 29 mmol/L 11/12/2017 10:27 AM CDT [employer] [facility] - [facility] CALCIUM 9.3 8.6 - 10.2 mg/dL 11/12/2017 10:27 AM [facility] [employer] [facility] BUN 16 8 - 23 mg/dL 11/12/2017 10:27 AM [facility] [employer] [facility] CREATININE 1.10 0.67 - 1.17 mg/dL 11/12/2017 10:27 AM [facility] [employer] LABORATORY [facility] Comment: The GFR result is not clinically significant on patients <18 or >70 years of age. GLUCOSE 96 74 - 99 mg/dL 11/12/2017 10:27 AM [facility] [employer] LABORATORY [facility] TOTAL PROTEIN 6.6(L) 6.7 - 8.6 g/dL 11/12/2017 10:27 AM [facility] [employer] [facility] . [facility] ALBUMIN 3.6 3.5 - 5.2 g/dL 11/12/2017 10:27 AM [facility] [employer] [facility] BILIRUBIN TOTAL 0.2 0.2 - 1.1 mg/dL 11/12/2017 10:27 AM [facility] [employer] [facility] ALKALINE PHOSPHATASE 62 40 - 129 U/L 11/12/2017 10:27 AM [employer] [facility] AST 12 <41 U/L 11/12/2017 10:27 AM [employer] [facility] ALT 12 <42 U/L 11/12/2017 10:27 AM [facility] [employer] [facility] GFR >60 mL/min/1.7 3 sq meter 11/12/2017 10:27 AM [facility] [employer] [facility] Comment: eGFR has not been validated [...] mL/min/1.7 3 sq meter 11/12/2017 10:27 AM [facility] [employer] [facility] ANION GAP 12 8 - 16 mmol/L 11/12/2017 10:27 AM CDT [facility] LABORATORY [facility] Blood Venipuncture / Unknown 11/12/2017 6:24 AM CDT 11/12/2017 8:34 AM CDT Narrative [facility] LABORATORY [facility] - 11/12/2017 10:27 AM CDT Samples containing indocyanine green cause interferences on Total and/or Direct Bilirubin and must not be measured. Anthony Solano MD CHEMISTRY ORDERABLES Final R esult [facility] CLIA# [id number] [address] [place] [address] documented in this encounter Visit Diagnoses Diagnosis Encounter for general adult medical examination without abnormal findings Routine general medical examination at a health care facility documented in this encounter
--- OUTSIDE RECORDS SUMMARY | 2025-02-14 18:22 | XMS_ITS | Encounter Summary ---
Author Organization [employer] Address [address] [place] [address] Care Team Providers Care Promotions Firm Accounts Manager Name Role Phone Unavailable Primary Care Provider Unavailabl e Encounter Details Date Type Department Care Team (Late st Contact Info) Description 10/29/2017 Lab Requisition [facility] [address] [place] [address] Anthony Solano MD [address] [place] [address] Hypothyroidism; Vitamin D deficiency; Bacterial infection Social History Tobacco Use Types Packs/Day Years Used Date Smoking Tobacco: Never Assessed Sex and Gender Information Value Date Recorded Sex Assigned at Not on file 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 Gender Identity Not on file Sexual Orientation [...] 25 HYDROXY (10/29/2017 6:45 AM CDT) Pathologist [facility] VITAMIN D TOTAL (25OH) 21(L) 30 - 100 ng/mL 10/29/2017 10:21 AM CDT [facility] [employer] [facility] Blood Collection / Unknown 10/29/2017 6:45 AM CDT 10/29/2017 8:55 AM CDT [facility] - 10/29/2017 10:21 AM CDT Interpretive Data Chart: Deficient: 0 - 20 ng/mL Insufficient: 21 - 29 ng/mL Sufficient: 30 - 100 ng/mL Increased Risk of Hypercalciuria: >100 ng/mL Toxic: >150 ng/mL Anthony Solano MD CHEMISTRY ORDERABLES Final R esult [facility]# [id number] [address] [facility] [place] [address] * (ABNORMAL) CBC WITH DIFFERENTIAL (10/29/2017 6:45 AM CDT) [facility] WBC 5.0 4.0 - 9.8 K/uL 10/29/2017 9:45 AM T [facility] [employer] [facility] RBC 2.89(L) 4.50 - 5.40 M/uL 10/29/2017 9:45 AM T [facility] LABORATORY [facility] HEMOGLOBIN 9.6(L) 13.6 - 16.5 g/dL 10/29/2017 9:45 AM T [facility] HEMATOCRIT 29.5(L) 40.0 - 48.0 % 10/29/2017 9:45 AM [facility] MCV 102.1(H) 82.0 - 99.0 fL 10/29/2017 9:45 AM CDT [employer] [facility]ORATORY SERVICES - [facility] MCH 33.2(H) 27.2 - 32.6 pg 10/29/2017 9:45 AM CDT [employer] [facility] - [facility] MCHC 32.5 31.5 - 35.5 g/dL 10/29/2017 9:45 AM CDT [facility] - [facility] RDW 14.5 11.5 - 14.5 % 10/29/2017 9:45 AM CDT [facility] - [facility] RDW-STDEV 54.1(H) 37.1 - 48.7 fL 10/29/2017 9:45 AM CDT [facility] - [facility] PLATELETS 315 140 - 350 K/uL 10/29/2017 9:45 AM CDT [facility] [facility] - [facility] MPV 9.1(L) 9.3 - 12.4 fL 10/29/2017 9:45 AM [employer] [facility] [facility]ATORY SERVICES - [facility] NEUTROPHILS 47 % 10/29/2017 9:45 AM CDT [employer] LABORATORY SERVICES - . [facility] LYMPHOCYTES 33 % 10/29/2017 9:45 AM CDT [facility] LABORATORY SERVICES - . [facility] MONOCYTES 9 % 10/29/2017 9:45 AM CDT [facility] [facility]ATORY SERVICES - . [facility] EOSINOPHILS 9 % 10/29/2017 9:45 AM CDT [facility] LABORATORY SERVICES - . [facility] BASOPHILS 1 % 10/29/2017 9:45 AM CDT [facility] LABORATORY SERVICES - . [facility] IMMATURE GRANULOCYTES 1 % 10/29/2017 9:45 AM [employer] [facility] LABORATORY SERVICES - . [facility] Comment:IG (Immature Granulo cyte) count includes Metamyelocytes, Myelocytes, and Promyelocytes NEUTROPHIL ABSOLUTE 2.34 1.90 - 7.00 K/uL 10/29/2017 9:45 AM CDT [facility] LABORATORY SERVICES - . [facility] LYMPHOCYTE ABSOLUTE 1.64 0.70 - 4.50 K/uL 10/29/2017 9:45 AM CDT [facility] LABORATORY SERVICES - . [facility] MONOCYTE ABSOLUTE 0.45 0.10 - 1.30 K/uL 10/29/2017 9:45 AM CDT [facility] LABORATORY SERVICES - . [facility] EOSINOPHIL ABSOLUTE 0.44 0.00 - 0.70 K/uL 10/29/2017 9:45 AM CDT [facility] LABORATORY SERVICES - [facility] BASOPHILS ABSOLUTE 0.03 0.00 - 0.20 K/uL 10/29/2017 9:45 AM CDT [facility] LABORATORY SERVICES - [facility] IMMATURE GRANULOCYTES ABSOLUTE 0.06(H) 0.00 - 0.03 K/uL 10/29/2017 9:45 AM CDT [facility] LABORATORY SERVICES - [facility] Blood Collection / Unknown 10/29/2017 6:45 AM CDT 10/29/2017 8:55 AM CDT Anthony Solano MD HEMATOLOGY ORDERABLES Final Result [facility] CLIA# [id number] [address] [place] [address] * (ABNORMAL) TSH REFLEXIVE (10/29/2017 6:45 AM CDT) TSH 8.39(H) 0.27 - 4.20 uIU/mL 10/29/2017 11:27 AM CDT [facility] LABORATORY [facility] Blood Collection / Unknown 10/29/2017 6:45 AM CDT 10/29/2017 8:55 AM CDT Anthony Solano MD CHEMISTRY ORDERABLES Final R esult [facility]# [id number] [address] [place] [address] * (ABNORMAL) LIPID PANEL (10/29/2017 6:45 AM CDT) CHOLESTEROL 183 <200 mg/dL 10/29/2017 10:05 AM CDT [facility] [employer] [facility] TRIGLYCERIDE 100 <150 mg/dL 10/29/2017 10:05 AM CDT [facility] [employer] [facility] HDL 60(H) 40 - 59 mg/dL 10/29/2017 10:05 AM T [facility] [employer] [facility] LDL CALCULATED 103(H) <100 mg/dL 10/29/2017 10:05 AM CDT [facility] NON-HDL CHOLESTEROL 123 <130 mg/dL 10/29/2017 10:05 AM CDT [facility] Blood Collection / Unknown 10/29/2017 6:45 AM CDT 10/29/2017 8:55 AM CDT Narrative [facility] LABORATORY [facility] - 10/29/2017 10:05 AM CDT TOTAL CHOLESTEROL [...] Solano MD CHEMISTRY ORDERABLES Final R esult [facility] CLIA# [id number] [address] [place] [address] * T4 FREE (10/29/2017 6:45 AM CDT) T4 FREE 1.18 0.90 - 1.70 ng/dL 10/29/2017 11:21 AM CDT [facility] Blood Collection / Unknown 10/29/2017 6:45 AM CDT 10/29/2017 8:55 AM CDT Anthony Solano MD CHEMISTRY ORDERABLES Final R esult [facility] CLIA# [id number] [address] [place] [address] * PHOSPHORUS (10/29/2017 6:45 AM CDT) PHOSPHORUS 4.4 2.5 - 4.5 mg/dL 10/29/2017 10:05 AM CDT [facility] LABORATORY [facility] Blood Collection / Unknown 10/29/2017 6:45 AM CDT 10/29/2017 8:55 AM CDT Anthony Solano MD CHEMISTRY ORDERABLES Final R esult Performing Organization Address City/[facility]/ZIP Co de Phone Number [facility] CLIA# [id number] [address] [place] [address] * MAGNESIUM LEVEL (10/29/2017 6:45 AM CDT) MAGNESIUM 2.1 1.6 - 2.4 mg/dL 10/29/2017 10:05 AM CDT [facility] LAB[facility]ATORY [facility] Blood Collection / Unknown 10/29/2017 6:45 AM CDT 10/29/2017 8:55 AM CDT Anthony Solano MD CHEMISTRY ORDERABLES Final R esult Performing Organization Address City/[facility] Co de Phone Number [facility] CLIA# [id number] [address] [place] [address] * (ABNORMAL) COMPREHENSIVE METABOLIC PANEL (10/29/2017 6:45 AM CDT) SODIUM 140 136 - 145 mmol/L 10/29/2017 10:05 AM CDT [employer] LABORATORY SERVICES - [facility] POTASSIUM 3.9 3.5 - 5.0 mmol/L 10/29/2017 10:05 AM CDT [employer] LABORATORY SERVICES - . [facility] CHLORIDE 100 98 - 107 mmol/L 10/29/2017 10:05 AM CDT [employer] LABORATORY SERVICES - . [facility] CO2 28 22 - 29 mmol/L 10/29/2017 10:05 AM CDT [employer] LABORATORY SERVICES - . [facility] CALCIUM 8.7 8.6 - 10.2 mg/dL 10/29/2017 10:[address] [facility] [employer] [facility] BUN 16 8 - 23 mg/dL 10/29/2017 10:[address] [facility] [employer] [facility] CREATININE 0.94 0.67 - 1.17 mg/dL 10/29/2017 10:[address] [facility] [employer] LABORATORY [facility] Comment: The GFR result is not clinically significant on patients <18 or >70 years of age. GLUCOSE 91 74 - 99 mg/dL 10/29/2017 10:[address] [facility] [employer] LABORATORY [facility] TOTAL PROTEIN 6.0(L) 6.7 - 8.6 g/dL 10/29/2017 10:[address] [facility] [employer] [facility] ALBUMIN 3.2(L) 3.5 - 5.2 g/dL 10/29/2017 10:[address] [facility] [employer] [facility] BILIRUBIN TOTAL 0.2 0.2 - 1.1 mg/dL 10/29/2017 10:05 AM [facility] [facility] ALKALINE PHOSPHATASE 69 40 - 129 U/L 10/29/2017 10:05 AM [facility] [facility] AST 19 <41 U/L 10/29/2017 10:05 AM [employer] [facility] ALT 15 <42 U/L 10/29/2017 10:05 AM [employer] [facility] GFR >60 mL/min/1.7 3 sq meter 10/29/2017 10:05 AM [employer] SERVICES [facility] Comment: eGFR has not [...] mL/min/1.7 3 sq meter 10/29/2017 10:05 AM [employer] LABORATORY SERVICES [facility] ANION GAP 12 8 - 16 mmol/L 10/29/2017 10:05 AM CDT [facility] Blood Collection / Unknown 10/29/2017 6:45 AM CDT 10/29/2017 8:55 AM CDT Narrative [facility] LABORAT[facility] - 10/29/2017 10:05 AM CDT Samples containing indocyanine green cause interferences on Total and/or Direct Bilirubin and must not be measured. Anthony Solano MD CHEMISTRY ORDERABLES Final R esult [facility]# [id number] [address] [place] [address] documented in this encounter Visit Diagnoses Diagnosis Hypothyroidism Unspecified hypothyroidism Vitamin D deficiency Unspecified vitamin D deficiency Bacterial infection Bacterial infection, unspecified, in conditions classified elsewhere and of unspecified site documented in this encounter
--- OUTSIDE RECORDS SUMMARY | 2025-02-14 18:22 | XMS_ITS | Referral Summary ---
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 10/13 Overview (10/13/2020): Added automatically from request for surgery [id number] Impaired mobility and ADLs 06/04/2018 Spasticity 04/29/2018 Assessment & Plan (09/03/2021 1:49 PM STOCK PARTS FABRICATOR): 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 [...] 0 Assessment & Plan (06/04/2021 2:38 PM STOCK PARTS FABRICATOR): 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 [...] 0 Assessment & Plan (08/21/2020 2:24 PM STOCK PARTS FABRICATOR): 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 [...] on file Legal Sex Male 2:53 AM STOCK PARTS FABRICATOR Gender Identity Male 09/03/2020 3:03 PM STOCK PARTS FABRICATOR Sexual Orientation Not on file Last Filed Vital Signs Vital Sign Reading Time Taken Comments Blood Pressure 134/78 09/03/2021 1:19 PM STOCK PARTS FABRICATOR Pulse 77 09/03/2021 1:19 PM STOCK PARTS FABRICATOR Temperature 36.2 C (97.1 F) 05/06/2021 8:31 AM CDT Respiratory Rate 16 10/30/2020 11:10 AM CDT Oxygen Saturation 100% 10/30/2020 11:10 AM CDT Inhaled Oxygen Concentration - - Weight 93.4 kg (206 lb) 09/03/2021 1:19 PM STOCK PARTS FABRICATOR Height 177.8 cm (5' 10) 09/03/2021 1:19 PM STOCK PARTS FABRICATOR Body Mass Index 29.56 09/03/2021 1:19 PM STOCK PARTS FABRICATOR Plan of Treatment [place] [address] MEDICARE [facility] MEDICARE [facility] MEDICARE Advance Directives For more information, please contact: [phone] Documents on File Type Date Recorded Patient Report Checker Expl anation ADVANCE DIRECTIVE 09/21/2017 12:00 AM Care Teams Nurse Private Duty Relationship Specialty Start Date End Date Natanael Tai MD [address] [facility] [address] [place] [address] PCP - General 05/07/16 Villa Garcia MD [address] [facility] [address] [place] [address] Surgeon Ophthalmology 10/30/20
--- OUTSIDE RECORDS SUMMARY | 2025-02-14 18:22 | XMS_ITS | Clinical Summary ---
Author Organization [facility] Address [address] [facility] [place] [address] Care Team Providers Care Balcony Worker Name Role Phone Natanael Tai MD Primary Care Provider [phone] Gunnar Greenfield MD Unavailable Natanael Tai MD Unavailable Christoph Jaffe MD Unavailable [phone] Brando Hitchcock MD Unavailable Genaro Santiago MD Unavailable Dat Garcia MD Unavailable [phone] Randall Harrison MD Unavailable Ivan Zimmerman MD Unavailable [phone] Delmar Mayers MD Unavailable [phone] Louisa Fuller MD Unavailable [phone] Source Comments [facility],non-owned Affiliates and Associated Physician Practices is amultiple site organization consisting of ambulatory clinics and hospital sitesin [place], [place], [place] and [place]. This disclosure is being madepursuant to the Care Everywhere program and may not contain all information available regarding this patient. Last updated 18.[facility] Allergies Active Allergy Reactions Criticality Noted [...] Active vitamin D, ergocalciferol, (Drisdol) 1.25 MG (68649 UT) capsuleIndications:Vit amaya D insufficiency TAKE 1 [...] nick-neglect. 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 [facility], [place], [place] REACH program. Left hemineglect also. Goal home [...] (01/09/2021): Added automatically from request for surgery [id number] Rash 10/10/2020 11/07/2020 Overview (10/10/2020): Right ankle [...] Type Department Care Team Description 02/14/2025 Telephone [facility] Internal Medicine [address] [place] [phone] Natanael Tai MD Weakness Extremity; Fall 02/04/2025 Results Follow-Up [facility] Internal Medicine [address] [place] [phone] Natanael Tai MD 01/14/2025 Refill [facility] Internal Medicine [address] [place] [phone] Natanael Tai MD Refill Request 11/15/2024 Refill [facility] Internal Medicine [address] [place] [phone] Natanael Tai MD Refill Request from Last 3 [...] on file Legal Sex Male 6:53 AM PATIENT ACCESS ASSOCIATE Gender Identity Not on file Sexual Orientation Not on file 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, 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 pt reported Body Mass Index 30.85 06/06/2024 1:02 PM PATIENT ACCESS ASSOCIATE Plan of Treatment Upcoming Encounters Date Type Department Care Team (Late st Contact Info) Description 04/06/2025 2:00 PM CDT Office Visit [facility] - Internal Medicine [address] [facility] [address] [place] [phone] Natanael Tai MD [address] [facility] [address] [place] [address] 05/08/2025 2:00 PM CDT Office Visit [facility] - Dermatology [address] [place] [address], [place] [address] Ivan Zimmerman MD [address] [place] [address] [address] [place] [address] Health Maintenance Due Date Last Done Comments [...] < 140/90 Blood Pressure 120/72(2023 10:31 AM PATIENT ACCESS ASSOCIATE) No Kasandra An SSBarb Lifestyle:Decrea se anxiety [...] - 02/13/2025 10:10 AM CDT Performed at: [address] [place] [id number] Real Estate Investment Analyst: Shmuel Deal PhD, Phone: [phone] Natanael Tai MD LAB - CHEMISTRY ORDERABLES Fi nal Result [facility] INSURANCE BILL [address] [place] [address] from Last [address] [place] [id number] MEDICARE ANTHEM MEDICARE ANTHEM Advance Directives Documents on File Type Date Recorded Patient Rolls Baker Expl anation Adv Directive/Living Will/POA 02/10/2019 8:30 AM POWER OF PLANT OPERATIONS WORKER * DNR - IF PULSELESS NO CPR, NO SHOCK (Latest Code Status on File) Date Activated Date Inactivated Comments 09/12/2019 5:08 PM 09/14/2019 4:53 PM Question Answer Comments : DO NOT discontinue a ny active orders without asking attending physician. Care Teams Balcony Worker Relationship Specialty Start Date End Date Natanael Tai MD [address] [facility] [address] [place] [address] PCP - General Internal Medicine 11/11/11 Natanael Tai MD [address] [facility] [address] [place] [address] PCP - Attributed-MSSP 12/30/16 Gunnar Greenfield MD [address] [place] [address] Psychiatry 07/05/14 Christoph Jaffe MD [address] [facility] [address] [place] [address] Ophthalmology 01/19/17 Brando Hitchcock MD [address] [facility] [address] [place] [address] Gastroenterology 02/25/18 Genaro Santiago MD [address] [facility] [address] [place] [address] Pulmonary Disease 08/01/18 aDt Garcia MD [address] [place] [address] [place] [phone] Ophthalmology 10/10/20 Randall Harrison MD [address] [facility] [address] [place] [phone] Dermatology 05/02/21 Ivan Zimmerman MD [address] [facility] [address] [place] [address] Dermatology 05/02/21 Delmar Mayers MD [address] [facility] [address] [place] [address] Cardiology 07/02/22 Louisa Fuller MD [address] [facility] [address] [place] [address] Dermatology 01/04/23
--- OUTSIDE RECORDS SUMMARY | 2025-02-14 18:22 | XMS_ITS | Clinical Summary ---
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
--- OUTSIDE RECORDS SUMMARY | 2025-02-14 18:22 | XMS_ITS | Encounter Summary ---
Author Organization [facility] Address [address] [facility] [place] [address] Care Team Providers Care Venereal Disease Investigator Name Role Phone Natanael Tai MD Primary Care Provider Gunnar Greenfield MD Unavailable [phone] Natanael Tai MD Unavailable Christoph Jaffe MD Unavailable Brando Hitchcock MD Unavailable Genaro Santiago MD Unavailable Dat Garcia MD Unavailable Randall Harrison MD Unavailable Ivan Zimmerman MD Unavailable [phone] Delmar Mayers MD Unavailable [phone] Louisa Fuller MD Unavailable [phone] Reason for Visit * Reason Onset Date Comments Weakness Extremity 02/14/2025 Fall 02/14/2025 Encounter Details Date Type Department Care Team (Late st Contact Info) Description 02/14/2025 Telephone [facility] - Internal Medicine [address] [facility] [address] [place] [phone] Natanael Tai MD [address] [place] [address] [place] [phone] Weakness Extremity; Fall Social History Tobacco [...] on file 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 Answer Date of Assessment Author No 09/14/2019 3:03 PM HYDRAULIC JACK OPERATOR Andres, Salud Deleon RN * Is person blind or have serious difficulty seeing? Answer Date of Assessment Author No 09/14/2019 3:03 PM [facility] Andres, Salud Deleon RN * Does person have serious difficulty walking/climbing stairs? Answer Date of Assessment Author Yes 09/14/2019 3:03 PM [facility] Andres, Salud Deleon RN * Does person have difficulty dressing/bathing? Answer Date of Assessment Author Yes 09/14/2019 3:03 PM [facility] Andres, Salud Deleon RN * Does person have difficulty doing errands alone? Answer Date of Assessment Author Yes 09/14/2019 3:03 PM [facility] documented as of this encounter Mental Status * Does person have difficulty concentrating/remembering/making decisions? Answer Entry Date Author Yes 09/14/2019 3:03 PM [facility] AndresSalud RN documented in this encounter Miscellaneous [...] Description 04/06/2025 2:00 PM CDT Office Visit [facility] - Internal Medicine [address] [place] [address] [place] [phone] Natanael Tai MD [address] [place] [address] [place] [phone] 05/08/2025 2:00 PM CDT Office Visit [facility] - Dermatology [address] [place] [address], [place] [address] Ivan Zimmerman MD [address] [place] [address] [place] [address] documented as of this encounter Goals Goal Patient Goal Type Associated Problems Recent Progress Patient-Stated? 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) No Kasandra An [facility] Lifestyle:Decrea se anxiety / depression / stress levels Lifestyle No Elsa Munoz MA documented as of this encounter Visit Diagnoses Not on filedocumented in this encounter Care Teams Venereal Disease Investigator Relationship Specialty Start Date End Date Natanael Tai MD [address] [facility] [address] [place] [phone] PCP - General Internal Medicine 11/11/11 Natanael Tai MD [address] [facility] [address] [place] [phone] PCP - Attributed-MSSP 12/30/16 Gunnar Greenfield MD [address] [place] [address] Psychiatry 07/05/14 Christoph Jaffe MD [address] [facility] [address] [place] [address] Ophthalmology 01/19/17 Brando Hitchcock MD [address] [facility] [address] [place] [address] Gastroenterology 02/25/18 Genaro Santiago MD [address] [facility] [address] [place] [phone] Pulmonary Disease 08/01/18 Dat Garcia MD [address] [facility] [address] [place] [address] Ophthalmology 10/10/20 Randall Harrison MD [address] [facility] [address] [place] [address] Dermatology 05/02/21 Ivan Zimmerman MD [address] [facility] [address] [place] [address] Dermatology 05/02/21 Delmar Mayers MD [address] [facility] [address] [place] [phone] Cardiology 07/02/22 Louisa Fuller MD [address] [facility] [address] [place] [address] Dermatology 01/04/23 documented as of this encounter
--- NOTE | 2025-02-14 21:09 | ECG_ITS ---
Test Date: 2025-02-14 21:28:08 Measurements Intervals [place] Rate: 64 P: 8 WA: 199 QRS: -22 QRSD: 103 T: 29 QT: 392 QTc: 406 Interpretive Statements SINUS RHYTHM BORDERLINE LEFT AXIS DEVIATION [QRS AXIS < -20] VOLTAGE CRITERIA FOR LVH [MEETS CRITERIA IN ONE OF: R(aVL), S(V1), R(V5), R(V5/V6)+S(V1)] NONSPECIFIC T-WAVE ABNORMALITY No previous ECG available for comparison Electronically Signed On 02-16-2025 15:37:43 CDT by Juanito Mejias M.D.
[2025-02-14 21:33] LABS: Hematocrit 37.2 % (42.0-52.0); Hemoglobin 12.4 g/dL (14.0-18.0); Immature Granulocyte Percent A 0.4 % (0-0.5); Lymphocytes Absolute Auto 2.45 K/mm3 (0.9-3.2); Mean Corpuscular HGB Conc 33.3 g/dl (32-36); Mean Corpuscular Hemoglobin 32.5 pg (26-34); Mean Corpuscular Volume 97.4 fl (80-100); Nucleated Red Blood Cells Absolute Auto 0.000 K/mm3 (0.0-0.012); Nucleated Red Blood Cells Perc 0.0 % (0.0-0.2); Platelet Count Result 212 k/mm3 (150-375); Red Blood Count 3.82 M/mm3 (4.6-6.20); White Blood Count 7.5 K/mm3 (4.5-10.0)
[2025-02-14 21:43] LABS: Add Urine Microscopic? NO; Appearance Urine Clear (Clear); Glucose Urine UA Negative (Negative); Leukocyte Esterase Ur Negative LEU/UL (Negative); Nitrate Urine Negative (Negative); Specific Grav Ur 1.016 (1.001-1.035)
[2025-02-14 21:45] LABS: INR 1.1; Prothrombin Time 13.9 Seconds (11.1-14.7)
[2025-02-14 21:46] LABS: Partial Thromboplastin Time 27.3 Seconds (22.3-36.8)
[2025-02-14 21:56] LABS: Alanine Aminotransferase 18 U/L (6-50); Albumin Level 4.0 g/dL (3.5-5.1); Alkaline Phosphatase 78 U/L (38-126); Anion Gap 8 mmol/L (4-12); Aspartate Amino Transferase 22 U/L (17-59); Bilirubin,Total 0.4 mg/dL (0.2-1.3); Blood Urea Nitrogen 19 mg/dL (9-20); Calcium 9.0 mg/dL (8.4-10.2); Carbon Dioxide 26 mmol/L (22-30); Chloride 103 mmol/L (98-107); Estimated CRCL calculation 56 ml/min; Estimated Glomerular Filt Rate > 60; Glucose 92 mg/dL (65-110); Potassium 3.9 mmol/L (3.4-5.0); Sodium 137 mmol/L (137-145); Total Protein 7.0 g/dL (6.3-8.2)
[2025-02-14 23:24] VITALS: BP 126/67; PULSE 65; O2SAT 93
--- NOTE | 2025-02-14 23:30 | PC.NURSE ---
Assumed care of patient after receiving bedside report from DARCY Martin. @ [phone]
[2025-02-15] VITALS (10 sets, daily range): BP systolic 123–151; BP diastolic 56–93; PULSE 56–90; RESP 16–18; TEMP 36.3–36.7; O2SAT 91–94; BMI 31.2
[2025-02-15] MEDS: ASPIRIN 81 MG CHEWABLE TABLET 324 MG PO (01:20)
--- NOTE | 2025-02-15 02:11 | ADMGEN ---
This patient, Jordan Diaz, was admitted to Medical Room 254-01. Patient/family oriented to hospital policies and general routines including ID bracelet, bed and alarms, visiting hours, pain management, procedures, bathroom and other care routines, personal items, smoking policy, room service/diet, and visiting hours. Information on how to activate the Rapid Response Team has been discussed. Patient/Family are encouraged to report perceived risks to care and to ask questions if they do not understand what they are told or what they should do.
--- NOTE | 2025-02-15 09:32 | P.HP_ITS ---
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 He reports tingling and numbness, with right sided leg stiffness, weakness caused him to fall. He hit his head and his right lower back when he fell. Also initially reported right shoulder and right knee pain. [place] mildly disoriented, not sure if he would call it dizzy. No chest pain, shortness of breath, or palpitations. Also noted that he had difficulty moving his right leg between 8 and 9:30am. Episode resolved. Notes a similar episode 2-3 weeks prior as well. He uses a cane at baseline. Was initially told after his stroke that he would always require a wheelchair but he pushed himself to be more active than that. He reports gradually walking more slowly and feeling more unsteady in recent months, often related to fatigue. No longer follows with neurology. 02/14 CTA showed: 1. Small amount of atherosclerotic plaque with 0% stenosis of the right and left carotid bulbs relative to normal distal artery lumen diameter (NASCET criteria). 2. No hemodynamic significant stenosis, thrombosis or aneurysm within the cerebral arteries. 02/15 chest x-ray 1. Small lung volumes with mild linear discoid atelectasis in the right mid and left lower lung zones. 02/15 Brain MRI No evidence of acute ischemic infarct. No acute infarct or hemorrhage. No mass effect or herniation. Moderate white matter chronic small vessel ischemic changes.. No pathological enhancement on post-contrast images. Chronic infarct centered around the right basal ganglia and right frontal lobe causing mild extrinsic dilatation of the right lateral ventricle is again seen. Mild susceptibility artifact on gradient echo images in the area of chronic infarct, likely sequela of old hemorrhage Review of Systems Review of Systems: 12 point review of systems negative exce pt as noted in the [facility] Past Medical History Medical History (Updated 02/16/25 @ 06:09 by Marjorie Bowman APRN) Depression History of stroke Surgical History Surgical History 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 Family History Family History (Updated 02/15/25 @ 02:33 by Chantelle Swain RN) Father Aortic aneurysm Mother COPD (chronic obstructive pulmonary disease) Social History Social History Smoking status: Never smoker Alcohol intake: current Alcohol use details: occasional Substance use type: does not use Do You Feel Safe in your Home?: Yes Lack of Transportation: No Lack of Food: Never True Current Housing: I Have Housing Concerned About Future Housing: No Difficulty Paying Gas/Electric Bills: No Difficulty Paying for Meds: No Currently Unemployed: No Education: Master's Degree or Higher Difficulty w/ Childcare or Family Care: No Living arrangements: with family Occupation/Education: retired Spiritual care concerns: No Meds Home Medications and Allergies Home Medications ?Medication ?Instructions ?Recorded ?Confirmed ?Type aripiprazole 2 mg tablet 2 mg PO HS 11/14/22 02/15/25 History atorvastatin 10 mg tablet 10 mg PO HS 11/14/22 02/15/25 History bupropion HCl 150 mg 24 hr tablet, 150 mg PO DAILY 11/14/22 02/15/25 History extended release bupropion HCl 300 mg 24 hr tablet, 300 mg PO DAILY 11/14/22 02/15/25 History extended release ergocalciferol (vitamin D2) 1,250 1,250 mcg PO WEEKLY 11/14/22 02/15/25 History mcg (50,000 unit) capsule levothyroxine 100 mcg tablet 125 mcg PO DAILY 11/14/22 02/15/25 History mirtazapine 45 mg tablet 45 mg PO HS 11/14/22 02/15/25 History tamsulosin 0.4 mg capsule 0.4 mg PO HS 11/14/22 02/15/25 History polyethylene glycol 3350 17 17 g PO DAILY PRN constipation 11/08/23 02/15/25 History gram/dose oral powder (Miralax) aspirin 81 mg tablet 81 mg PO DAILY 02/15/25 02/15/25 History cyanocobalamin (vitamin B-12) 500 mcg PO DAILY 02/15/25 02/15/25 History 1,000 mcg tablet (Vitamin B-12) melatonin 5 mg capsule 5 mg PO HS 02/15/25 02/15/25 History Allergies Allergy/AdvReac Type Severity Reaction Status Date / Time penicillin V Allergy Unknown Unknown Verified 02/15/25 02:47 risperidone (From Risperdal) Allergy Unknown Unknown Verified 02/15/25 02:47 Vital Signs Vital Signs - 24 hr 02/14/25 11:24 02/14/25 13:52 02/14/25 23:24 Temperature 97.6 F 98.0 F Pulse Rate 70 69 65 Respiratory Rate 16 Blood Pressure 112/47 L 112/66 126/67 Pulse Oximetry 94 96 93 Oxygen Delivery Room Air 02/15/25 01:21 02/15/25 02:48 02/15/25 02:59 Temperature 98.0 F Pulse Rate 90 85 Respiratory Rate 18 Blood Pressure 123/93 H 124/62 Pulse Oximetry 94 91 Oxygen Delivery Room Air 02/15/25 04:00 02/15/25 06:30 Temperature 97.7 F Pulse Rate 56 L 62 Respiratory Rate 16 Blood Pressure 129/56 L Pulse Oximetry 93 Oxygen Delivery Exam Const: General: comfortable and no acute distress HENMT: Face/Nose/Sinus: Normal nares present Mouth: Yes moist mucous membranes Eyes: General: appearance normal, both eyes and all related structures Pupils: Equal, round and reactive pupils present EOM: EOMs intact bilaterally Neck: Neck: supple and no JVD Resp: Effort & Inspection: normal respiratory effort Auscultation: clear to auscultation bilaterally Cardio: Rate: regular rate Rhythm: regular rhythm GI: GI Palp: Yes Soft to palpation Auscultation: normal bowel sounds Skin: General skin exam: normal color and no rashes or lesions noted Neuro: Speech: normal speech Other: Left sided weakness Left hand contracture Mild left facial droop, intermittent drooling Left leg weakness (all chronic) Extrem: General: normal to inspection Psych: Mental Status: mental status grossly normal H&P: Results Labs Labs: Short CBC 02/14/25 Range/Units 21:28 WBC 7.5 (4.5-10.0) K/mm3 Hgb 12.4 L (14.0-18.0) g/dL Hct 37.2 L (42.0-52.0) % Plt Count 212 (150-375) k/mm3 BMP 02/14/25 21:28 Sodium 137 Potassium 3.9 Chloride 103 Carbon Dioxide 26 BUN 19 Creatinine 1.11 Glucose 92 Calcium 9.0 Liver Function 02/14/25 Range/Units 21:28 Total Bilirubin 0.4 (0.2-1.3) mg/dL AST 22 (17-59) U/L ALT 18 (6-50) U/L Alkaline Phosphatase 78 (38-126) U/L Albumin 4.0 (3.5-5.1) g/dL Urine 02/14/25 Range/Units 21:38 Urine Color Yellow (Yellow) Urine Appearance Clear (Clear) Urine pH 5.5 (5.0-9.0) Ur Specific [place] 1.016 (1.001-1.035) Urine Protein Negative (Negative) mg/dL Urine Glucose (UA) Negative (Negative) mg/dL Assessment and Plan Assessment and plan (1) Transient right leg weakness: Code(s): R29.898 - Other symptoms and signs involving the musculoskeletal system Status: Acute Assessment and Plan: Differential includes TIA --Echo --PT/OT --Continue aspirin --Check lipid profile, a1c, likely increase statin --Referral to neurology (2) Depression: Code(s): F32.A - Depression, unspecified Status: Acute Assessment and Plan: Stable, no reported recent med changes Continue abilify, mirtazepine, wellbutrin Follows with psychiatry every 3 months Quality VTE Prophylaxis VTE prophylaxis: pharmacologic ordered Hospitalist MIPS Advance Care Plan I have confirmed that the patient's Advanced Care Plan is present, code status is documented, or surrogate decision maker is listed in patient medical record.: Yes Medication Reconciliation I have utilized all available resources to obtain, update and review the patients current medications (includes all prescriptions, OTC, herbals, cannabis, and nutritional supplements).: Yes
[2025-02-15] MEDS: buPROPion HCL XL (24 HR) 150 MG TABCR 300 MG PO (15:36)
[2025-02-15] MEDS: buPROPion HCL XL (24 HR) 150 MG TABCR PO (15:36)
[2025-02-15] MEDS: MIRTAZAPINE 15 MG TABLET 45 MG PO (21:51)
[2025-02-15] MEDS: TAMSULOSIN HCL 0.4 MG CAPSULE PO (21:51)
[2025-02-15] MEDS: ATORVASTATIN 10 MG TABLET PO (21:51)
[2025-02-15] MEDS: MELATONIN 5 MG TABLET PO (21:51)
[2025-02-16] VITALS (7 sets, daily range): BP systolic 129–141; BP diastolic 62–72; PULSE 59–78; RESP 16–24; TEMP 36.5–36.6; O2SAT 91–93
--- NOTE | 2025-02-16 | ECHO_ITS ---
Patient Info Name: Jordan Diaz Age: 79 years : 1945 Gender: Male Ht: 70 in Wt: 218 lbs BSA: 2.24 m2 HR: 74 bpm BP: 129 / 62 mmHg Technical Quality: Fair Exam Date: 02/16/2025 2:53 PM Patient Status: unknown Admit Date: 02/15/2025 Exam Type: CA echo dop bubble study w con Complete two-dimentional, color flow and Doppler transthoracic echocardiogram is performed with agitated saline and with contrast to opacify the left ventricle and to improve the delineation of the left ventricle endocardial borders. Staff Referring Physician: Marjorie Bowman Selling Specialist: Virgen Hamilton Attending Provider: Sosa Huynh DO Contrast/Agitated Saline Contrast/Ag. Saline: Agitated Saline Amount: 20.00 ml Administered By: Bria Feng Contrast/Ag. Saline: Definity Amount: 2.00 ml Administered By: Virgen Hamilton Summary 1. Left ventricular chamber dimension is normal. 2. Left ventricular systolic function is normal, estimated at 60-65. 3. There is mild concentric increased left ventricular wall thickness. 4. The left ventricular diastolic function is grade I diastolic dysfunction. 5. Definity contrast administered improved wall motion interpretation. 6. E/e' 12 is mildly elevated. 7. Left atrial chamber dimension is mildly enlarged. 8. There is mild aortic valve sclerosis. 9. There is mild aortic valve regurgitation. 10. There is trace mitral valve regurgitation. Left Ventricle E/e' 12 is mildly elevated. Left ventricular chamber dimension is normal. Left ventricular systolic function is normal, estimated at 60-65. There is mild concentric increased left ventricular wall thickness. The left ventricular diastolic function is grade I diastolic dysfunction. Definity contrast administered improved wall motion interpretation. Right Ventricle Right ventricular chamber dimension is normal. Right ventricular systolic function is normal. Left Atria Left atrial chamber dimension is mildly enlarged. Right Atria Right atrial chamber dimension is normal. Atrial Septum Intact interatrial septum visualized by 2D and agitated saline imaging. Agitated saline injection with and without valsalva maneuver opacified right side cardiac chambers without shunt to left side cardiac chambers. Aortic Valve The aortic valve is trileaflet. There is mild aortic valve sclerosis. There is no aortic valve stenosis. There is mild aortic valve regurgitation. Pulmonic Valve There is no pulmonic regurgitation. Mitral Valve There is no mitral valve stenosis. There is trace mitral valve regurgitation. Tricuspid Valve There is no tricuspid valve regurgitation. Pericardium/Pleural There is no pericardial effusion. Inferior Vena Cava Normal inferior vena cava with >50% collapse upon inspiration consistent with normal right atrial pressure, 5 mmHg. Aorta The aortic root size at the sinus of Valsalva is normal. Left Ventricular Outflow Tract Name Value Normal LVOT 2D LVOT Diameter 2.0 cm LVOT Doppler LVOT Peak Velocity 143 cm/s LVOT Peak Gradient 8 mmHg LVOT Mean Gradient 4 mmHg LVOT VTI 28 cm LVOT Stroke Volume 89 ml LVOT CO 6.5 l/min LVOT CI 2.9 l/min/m2 Pulmonic Valve Name Value Normal RVOT Doppler RVOT Peak Velocity 83 cm/s RVOT Peak Gradient 3 mmHg PV Doppler PV Peak Velocity 112 cm/s PV Peak Gradient 5 mmHg Mitral Valve Name Value Normal MV Diastolic Function MV E Peak Velocity 92 cm/s MV A Peak Velocity 94 cm/s MV E/A 1.0 MV Decel Time (PW) 196 ms MV Annular TDI MV E/e' (Septal) 18.8 MV E/e' (Lateral) 9.6 MV E/e' (Average) 14.2 Tricuspid Valve Name Value Normal Estimated PAP/RSVP RA Pressure 5 mmHg <=5 Aortic Valve Name Value Normal AV Doppler AV Peak Velocity 177 cm/s AV Peak Gradient 13 mmHg AV Area (Cont Eq Teja) 2.5 cm2 AV DI (Teja) 0.81 AV Regurgitation 2D LVOT Area 3.1 cm2 Ventricles Name Value Normal LV Dimensions 2D/MM IVS Diastolic Thickness (2D) 1.1 cm 0.6-1.0 LVID Diastole (2D) 4.6 cm 4.2-5.8 LVIW Diastolic Thickness (2D) 1.3 cm 0.6-1.0 LVID Systole (2D) 2.8 cm 2.5-4.0 LVOT Diameter 2.0 cm LV Mass (2D Cubed) 203.93 g 88.00-224.00 LV Mass Index (2D Cubed) 91 g/m2 49-115 Relative Wall Thickness (2D) 0.57 <=0.42 LV Fractional Shortening/Ejection Fraction 2D/MM LV Fractional Shortening (2D) 38 % 25-43 LV EF (2D Teichholz) 68 % LV Diastolic Volume (4C MOD) 120 ml LV EF (4C MOD) 59 % LV Diastolic Volume (2C MOD) 75 ml LV EF (2C MOD) 63 % LV Diastolic Volume (BP MOD) 96 ml 62-150 LV Diastolic Volume Index (BP MOD) 43 ml/m2 34-74 LV Systolic Volume (BP MOD) 39 ml 21-61 LV Systolic Volume Index (BP MOD) 17 ml/m2 11-31 LV EF (BP MOD) 59 % 52-72 LV Diastolic Length (4C) 8.7 cm LV Systolic Length (4C) 7.7 cm LV Stroke Volume (4C MOD) 71 ml Atria Name Value Normal LA Dimensions LA Volume (4C A-L) 50 ml LA Volume (BP A-L) 59 ml RA Dimensions RA Systolic [place] Length (4C) 5.5 cm 2.1-2.7 RA Area (4C) 11.0 cm2 <=18.0 Report Signatures
[2025-02-16] MEDS: LEVOTHYROXINE SODIUM 125 MCG TABLET PO (06:13)
[2025-02-16 06:55] LABS: Hematocrit 36.6 % (42.0-52.0); Hemoglobin 12.2 g/dL (14.0-18.0); Immature Granulocyte Percent A 0.4 % (0-0.5); Lymphocytes Absolute Auto 1.51 K/mm3 (0.9-3.2); Mean Corpuscular HGB Conc 33.3 g/dl (32-36); Mean Corpuscular Hemoglobin 32.4 pg (26-34); Mean Corpuscular Volume 97.1 fl (80-100); Nucleated Red Blood Cells Absolute Auto 0.000 K/mm3 (0.0-0.012); Nucleated Red Blood Cells Perc 0.0 % (0.0-0.2); Platelet Count Result 206 k/mm3 (150-375); Red Blood Count 3.77 M/mm3 (4.6-6.20); White Blood Count 7.1 K/mm3 (4.5-10.0)
[2025-02-16 07:21] LABS: Alanine Aminotransferase 17 U/L (6-50); Albumin Level 3.7 g/dL (3.5-5.1); Alkaline Phosphatase 79 U/L (38-126); Anion Gap 8 mmol/L (4-12); Aspartate Amino Transferase 23 U/L (17-59); Bilirubin,Total 0.5 mg/dL (0.2-1.3); Blood Urea Nitrogen 15 mg/dL (9-20); Calcium 8.7 mg/dL (8.4-10.2); Carbon Dioxide 26 mmol/L (22-30); Chloride 104 mmol/L (98-107); Estimated CRCL calculation 55 ml/min; Estimated Glomerular Filt Rate > 60; Glucose 107 mg/dL (65-110); Potassium 3.9 mmol/L (3.4-5.0); Sodium 138 mmol/L (137-145); Total Protein 6.7 g/dL (6.3-8.2)
[2025-02-16 07:22] LABS: Magnesium 2.1 mg/dL (1.6-2.3)
[2025-02-16] MEDS: buPROPion HCL XL (24 HR) 150 MG TABCR 300 MG PO (08:13)
[2025-02-16] MEDS: ASPIRIN 81 MG ENTERIC TABLET PO (08:13)
[2025-02-16] MEDS: buPROPion HCL XL (24 HR) 150 MG TABCR PO (08:13)
[2025-02-16] MEDS: CYANOCOBALAMIN 500 MCG TABLET PO (08:13)
[2025-02-16] MEDS: ENOXAPARIN 40 MG/0.4 ML SYRINGE SUB-Q (08:14)
[2025-02-16 08:33] LABS: Vitamin B12 827.0 pg/mL (239-931)
[2025-02-16 09:04] LABS: Thyroid Stimulating Hormone Reflex 0.122 uIU/mL (0.465-4.68)
[2025-02-16 09:43] LABS: Free T4 Free Thyroxine Reflex 1.23 ng/dL (0.78-2.19)
--- NOTE | 2025-02-16 15:28 | P.DS_ITS ---
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 He reports tingling and numbness, with right sided leg stiffness, weakness caused him to fall. He hit his head and his right lower back when he fell. Also initially reported right shoulder and right knee pain. [place] mildly disoriented, not sure if he would call it dizzy. No chest pain, shortness of breath, or palpitations. Also noted that he had difficulty moving his right leg between 8 and 9:30am. Episode resolved. Notes a similar episode 2-3 weeks prior as well. He uses a cane at baseline. Was initially told after his stroke that he would always require a wheelchair but he pushed himself to be more active than that. He reports gradually walking more slowly and feeling more unsteady in recent months, often related to fatigue. No longer follows with neurology. 02/14 CTA showed: 1. Small amount of atherosclerotic plaque with 0% stenosis of the right and left carotid bulbs relative to normal distal artery lumen diameter (NASCET criteria). 2. No hemodynamic significant stenosis, thrombosis or aneurysm within the cerebral arteries. 02/15 chest x-ray 1. Small lung volumes with mild linear discoid atelectasis in the right mid and left lower lung zones. 02/15 Brain MRI No evidence of acute ischemic infarct. No acute infarct or hemorrhage. No mass effect or herniation. Moderate white matter chronic small vessel ischemic changes.. No pathological enhancement on post-contrast images. Chronic infarct centered around the right basal ganglia and right frontal lobe causing mild extrinsic dilatation of the right lateral ventricle is again seen. Mild susceptibility artifact on gradient echo images in the area of chronic infarct, likely sequela of old hemorrhage Hospital Course: Transient right leg weakness: Differential includes TIA. No explation for symptoms during admission. Brain MRI, CTA normal --Does not require follow up for stenosis of right ICA since no atherosclerotic plaque --Continued aspirin --Check lipid profile, a1c --Continued statin at same dose since normal lipid profile --Recommended PT/OT but patient was not interested at this time. Was ambulating with a walker prior to discharge Right shoulder pain: Likely compensating on the right 2/2 weakness. Has limited range of motion at baseline, recently more painful. Range of motion not significantly changed per discussion with patient and family --No concern for fracture so deferred to outpatient --Recommended therapy if patient changes his mind Relevant Imaging 02/15 Brain MRI: No evidence of acute ischemic infarct. 02/16 CTA Head/Neck 1. Small amount of atherosclerotic plaque with 0% stenosis of the right and left carotid bulbs relative to normal distal artery lumen diameter (NASCET criteria). 2. No hemodynamic significant stenosis, thrombosis or aneurysm within the cerebral arteries. 02/16 Carotid dopplers: Slight increased velocity in the right ICA suggestive of 50-69% stenosis, however no atherosclerotic plaque is seen 02/16 TTE 1. Left ventricular chamber dimension is normal. 2. Left ventricular systolic function is normal, estimated at 60-65. 3. There is mild concentric increased left ventricular wall thickness. 4. The left ventricular diastolic function is grade I diastolic dysfunction. 5. Definity contrast administered improved wall motion interpretation. 6. E/e' 12 is mildly elevated. 7. Left atrial chamber dimension is mildly enlarged. 8. There is mild aortic valve sclerosis. 9. There is mild aortic valve regurgitation. 10. There is trace mitral valve regurgitation. Other medical conditions stable during admission Depression: Stable, no reported recent med changes Continue abilify, mirtazepine, wellbutrin Follows with psychiatry every 3 months Status at Discharge Cognitive/behavioral status at discharge: A&Ox4 Time Spent with Patient Time attestation: Total time spent providing and/or coordinating discharge services: 53 minutes Exam Narrative: General - Awake and alert. No acute distress Eyes - PERRLA, EOM intact ENT - No thrush, No erythema Neck - No noticeable or palpable swelling Lymph Nodes - No lymphadenopathy Cardiovascular - RRR no m/r/g, no JVD Lungs: Clear to auscultation, No wheezing, use of accessory muscles, no crackles or wheezes. Skin - Skin warm and dry, no wounds or rashes Abdomen - Normal bowel sounds, abdomen soft and nontender Extremities - No edema, cyanosis or clubbing Musculoskeletal - 2/5 strength on the left, contracted left hand, right sided weakness. Neurological ? Alert and oriented x 3, chronic left sided weakness, left sided neglect, PERRLA Psych: Normal mood and affect DS: Data Data Completed and Pending Labs on day of discharge: Labs from last 24 hours 02/16/25 06:41 WBC 7.1 RBC 3.77 L Hgb 12.2 L Hct 36.6 L MCV 97.1 MCH 32.4 MCHC 33.3 RDW 12.2 Plt Count 206 MPV 8.5 Immature Gran % (Auto) 0.4 Neut % (Auto) 65.2 Lymph % (Auto) 21.2 [place] % (Auto) 6.2 Eos % (Auto) 6.0 H Baso % (Auto) 1.0 Lymph # (Auto) 1.51 [place] # (Auto) 0.4 Eos # (Auto) 0.4 H Baso # (Auto) 0.1 Abs Immat Gran (auto) 0.03 Absolute Neuts (auto) 4.7 Absolute Nucleated RBC 0.000 Nucleated RBC % 0.0 Sodium 138 Potassium 3.9 Chloride 104 Carbon Dioxide 26 Anion Gap 8 BUN 15 Creatinine 1.15 Estim Creat Clear Calc 55 Estimated GFR > 60 Glucose 107 Calcium 8.7 Phosphorus 4.3 Magnesium 2.1 Total Bilirubin 0.5 AST 23 ALT 17 Alkaline Phosphatase 79 Total Protein 6.7 Albumin 3.7 Vitamin B12 827.0 Vitamin D 25-Hydroxy Pending Folate 10.4 TSH (Reflex) 0.122 L Free T4 1.23 Total T3 Pending Discharge Plan Discharge Attending physician on discharge: Marjorie Bowman Consulting providers: Marjorie Bowman; Ibis Conti; Emilie Joshi; Juanito Mejias; Florencio Jarrett; Angelo Jay; Gil Gipson; Rony Lee Discharging Clinician: Marjorie Bowman Anticipated Discharge Date/Time: 02/16/25 17:00 Patient Disposition: Home Activity: may shower Diet: heart healthy Wound Care Instructions: follow printed instructions Discharge Instructions: Recommend follow up with your PCP in 1-2 weeks. Can consider an outpatient event monitor. Reduced levothyroxine (synthroid) to 100mcg daily. You will need a repeat TSH in 6-8 weeks. The rest of the images and workup showed nothing acute. MRI brain, CTA head Patient Instructions: Antibiotic Form Patient Language: Palauan Stand Alone Forms: General Discharge Information Follow-up/Referrals: PHYSICIAN NOT ON STAFF,NONSTAFF [Primary Care Provider] - 2 Weeks Discharge Medications: New acetaminophen 500 mg Tablet 1,000 mg PO Q6H PRN (Reason: Mild Pain (1-3) Or Fever) Qty: 30 0RF Continued atorvastatin 10 mg tablet 10 mg PO HS tamsulosin 0.4 mg capsule 0.4 mg PO HS mirtazapine 45 mg tablet 45 mg PO HS ergocalciferol (vitamin D2) 1,250 mcg (50,000 unit) capsule 1,250 mcg PO WEEKLY Patient Comments: administer on Mondays bupropion HCl 300 mg tablet extended release 24 hr 300 mg PO DAILY bupropion HCl 150 mg tablet extended release 24 hr 150 mg PO DAILY aripiprazole 2 mg tablet 2 mg PO HS polyethylene glycol 3350 [Miralax] 17 gram/dose powder 17 g PO DAILY PRN (Reason: constipation) aspirin 81 mg tablet 81 mg PO DAILY cyanocobalamin (vitamin B-12) [Vitamin B-12] 1,000 mcg tablet 500 mcg PO DAILY melatonin 5 mg capsule 5 mg PO HS Changed levothyroxine 100 mcg tablet 100 mcg PO DAILY 30 Days Qty: 60 1RF Date of admission: 02/15/25 01:11 Primary Care Provider: PHYSICIAN NOT ON STAFF,NONSTAFF Admitting Provider: Sosa Huynh Attending physician on admission: Sosa Huynh Condition: Stable Quality VTE Prophylaxis VTE prophylaxis: pharmacologic ordered Hospitalist MIPS Heart Failure (Exclusion) Patient has history of Heart Transplant or Left Ventricular Assistive Device?: No IF YES, STOP HERE Heart Failure (Qualifier) Patient has current or prior documentation of LVEF less than or equal to 40%, or mod/servere depressed LVSF?: No IF NO, STOP HERE
[2025-02-16] MEDS: PERFLUTREN LIPID MICROSPHERES 1.5 ML VIAL DILUTED TO 10 ML TOTAL VOLUME IV PUSH (16:24)
--- NOTE | 2025-02-16 16:24 | IVDEFINITY ---
Prior to administration of IV Definity the patient was educated on the risks and benefits of the imaging enhancing agent including potential adverse side effects. The patient verbalized understanding. Allergies were verified. No exclusion criteria were identified and at least one of the following inclusion criteria were met: 1) physician request, 2) patient technically difficult to image (per the [place] [employer] guidelines of two or more segments not discernable within the apical view), or 3) questionable left ventricular function. ?
[2025-02-16 16:33] LABS: Total Triiodothyronine (T3) 0.91 NG/ML (0.82-1.58)
== END 2025-02-16 16:45 | disposition home or self-care (01) ==
LOC: ANHED 02-15 01:11 → ANH2MED 02-15 01:52
PROVIDERS: Nurse Practitioner Acute Care; Admitting Provider Internal Medicine; Emergency Provider Physician Assistant; Visit Provider Internal Medicine
DX: M25.511 Pain in right shoulder (principal); R29.898 Other symptoms and signs involving the musculoskeletal system; M25.561 Pain in right knee; M79.18 Myalgia, other site; R53.1 Weakness; W01.190A Fall on same level from slipping, tripping and stumbling with subsequent striking against furniture, initial encounter; I10 Essential (primary) hypertension; E78.5 Hyperlipidemia, unspecified; F32.A Depression, unspecified; M41.80 Other forms of scoliosis, site unspecified; Z86.73 Personal history of transient ischemic attack (TIA), and cerebral infarction without residual deficits
CPT/HCPCS: 36415; 70450; 70496; 70498; 70553; 71045; 72125; 72131; 73030; 73521; 73564; 80053; 81003; 82306; 82607; 82746; 83735; 84100; 84439; 84443; 84480; 85025; 85610; 85730; 93005; 93880; 96372; 96374; 96375; 97165; 99285; A9270; A9577; C8929; G0378; J1650; Q9957; Q9967